=== PATIENT | male | born 1970 | race Two or more races ===

== ENCOUNTER 2018-03-08 13:14 | Inpatient (IN) | payer OTHER ==
[2018-03-08 14:17] VITALS: BMI 21.9
--- NOTE | 2018-03-08 15:06 | HP ---
COWS - Scale Resting Pulse: 0= [place] 80 or Below Sweatin= No chills or Flushing Restless Observation: 0= Sits Still Pupil Size: 0= Normal to Room Light Bone or Joint Aches: 2= Severe Diffuse Aches Runny Nose/ Eye Tearin= Runny Nose/Eyes GI Upset > 30mins: 3= Vomiting/Diarrhea Tremor Observation: 0= None Yawning Observation: 0= None Anxiety or Irritability: 1=Feels Anxious/Irritable Goose Flesh Skin: 0=Smooth Skin COWS Score: 8 CIWA Score - CIWA Score Nausea/Vomitin-No Nausea/No Vomiting Muscle Tremors: None Anxiety: 3 Agitation: 0-Normal Activity Paroxysmal Sweats: No Perspiration Orientation: 0-Oriented Tacttile Disturbances: 0-None Auditory Disturbances: 0-None Visual Disturbances: 2-Mild Sensitivity Headache: 0-None Present CIWA-Ar Total Score: 5 Admission ROS S - HPI Allergies/Adverse Reactions: Allergies Allergy/AdvReac Type Severity Reaction Status Date / Time No Known Allergies Allergy Verified 10/18/14 16:23 History of Present Illness: patient here requesting detox for etoh and heroin use . Also reports poor appetite, wt loss w/ substance use . etoh : 4-5 pints/ day x 5 years , + tremors if not drinking , reports drinking from early mornings , denies blackouts, seizures, falls , latest use this morning . grace 0.082 utox + sara, + mop, + oxy , + mtd cocaine : 50 $/day ivdu in [facility] claims 100 mg /day heroin use : 10 bags/day ivdu [place] , needles from pharmacy denies sharing , + abscess 3 years ago , OD x 5 , most recently 1 yr ago , latest use last night , current symptoms as above . pmhx /pshx : asthma since childhood (nh, ni ) psych :anxiety , depression meds ; stopped taking psych meds 5 mo ago allergies : aspirin ( no rash , feels anxious ) tobacco use ; 1/2 ppd , requesting nrt w/ patch Exam Limitations: No Limitations - Ebola screening Have you traveled outside of the country in the last 21 days: No Have you had contact with anyone from an Ebola affected area: No Have you been sick,other than usual withdrawal symptoms: No Do you have a fever: No - Review of Systems Constitutional: Loss of Appetite EENT: reports: Blurred Vision, Other (myopia, has glasses) Respiratory: reports: No Symptoms reported Cardiac: reports: No Symptoms Reported GI: reports: Diarrhea, Poor Appetite : reports: No Symptoms Reported Musculoskeletal: reports: Back Pain Integumentary: reports: See HPI Neuro: reports: No Symptoms reported Endocrine: reports: No Symptoms Reported Psychiatric: reports: Orientated x3, Anxious Patient History - Patient Medical History Hx Anemia: No Hx Asthma: Yes Hx Chronic Obstructive Pulmonary Disease (COPD): No Hx Cancer: No Hx Cardiac Disorders: No Hx Congestive Heart Failure: No Hx Hypertension: No Hx Hypercholesterolemia: No Hx Pacemaker: No HX Cerebrovascular Accident: No Hx Seizures: No Hx Dementia: No Hx Diabetes: No Hx Gastrointestinal Disorders: No Hx Liver Disease: No Hx Genitourinary Disorders: No Hx Sexually Transmitted Disorders: No Hx Renal Disease (ESRD): No Hx Thyroid Disease: No Hx Human Immunodeficiency Virus (HIV): No (taking the test ) Hx Hepatitis C: No (possible , taking the test ) Hx Depression: Yes Hx Suicide Attempt: No Hx Schizophrenia: No - Patient Surgical History Past Surgical History: No Hx Neurologic Surgery: No Hx Cataract Extraction: No Hx Cardiac Surgery: No Hx Lung Surgery: No Hx Breast Surgery: No Hx Breast Biopsy: No Hx Abdominal Surgery: No Hx Appendectomy: No Hx Cholecystectomy: No Hx Genitourinary Surgery: No Hx Section: No Hx Orthopedic Surgery: No Anesthesia Reaction: No - PPD History Date: 10/20/14 - Smoking Cessation Smoking history: Current every day smoker Have you smoked in the past 12 months: Yes Aproximately how many cigarettes per day: 6 Hx Chewing Tobacco Use: No Initiated information on smoking cessation: No Family Disease History - Family Disease History Family Disease History: Diabetes: Grandparent, Heart Disease: Grandparent, CA: Mother (pancreatic , liver CA ), Other: Father (HIV ) Admission Physical Exam BHS - Vital Signs Vital Signs: Vital Signs - 24 hr 03/08/18 14:15 Temperature 97.8 F Pulse Rate 78 Respiratory 18 Rate Blood Pressure 114/75 - Physical General Appearance: Yes: No Apparent Distress, Nourished, Appropriately Dressed , Mild Distress HEENTM: Yes: Within Normal Limits, EOMI, Hearing grossly Normal, Normal ENT Inspection, Normocephalic, Normal Voice, SUNDEEP, Pharynx Normal, Other (many missing teeth) Respiratory: Yes: Chest Non-Tender, Lungs Clear, Normal Breath Sounds, No Respiratory Distress, No Accessory Muscle Use, Wheezing Neck: Yes: Within Normal Limits, No masses,lesions,Nodules, Trachea in good position Breast: Yes: Breast Exam Deferred Cardiology: Yes: Within Normal Limits, Regular Rhythm, Regular Rate Abdominal: Yes: Within Normal Limits, Normal Bowel Sounds, Non Tender, Flat, Soft Genitourinary: Yes: Within Normal Limits Back: Yes: Within Normal Limits, Normal Inspection Musculoskeletal: Yes: Within Normal Limits, full range of Motion, Gait Steady, Pelvis Stable Extremities: Yes: Normal Capillary Refill, Normal Inspection, Normal Range of Motion, Non-Tender, Tremors Neurological: Yes: Within Normal Limits, Fully Oriented, Alert, Motor Strength 5 /5, Normal Mood/Affect, Normal Response Integumentary: Yes: Within Normal Limits, Normal Color, Dry, Warm Lymphatic: Yes: Within Normal Limits - Diagnostic (1) Alcohol dependence Current Visit: No Status: Acute Qualifiers: Substance use status: uncomplicated Qualified Code(s): F10.20 - Alcohol dependence, uncomplicated BHS Breath Alcohol Content Breath Alcohol Content: 0.082 Urine Drug Screen - Results Drug Screen Negative: No Urine Drug Screen Results: SARA-Cocaine, OPI-Opiates, MTD-Methadone, OXY- Oxycodone
[2018-03-08] MEDS ORDERED: ACETAMINOPHEN 325 MG TABLET (FP) PO PRN (15:13)
[2018-03-08] MEDS ORDERED: MAGNESIUM CITRATE 300 ML BOTTLE PO PRN (15:13)
[2018-03-08] MEDS ORDERED: chlordiazePOXIDE HCL 25 MG CAPSULE PO PRN (15:13)
[2018-03-08] MEDS ORDERED: LOPERAMIDE HCL 2 MG CAPSULE PO PRN (15:13)
[2018-03-08] MEDS ORDERED: IBUPROFEN 400 MG TABLET (FP) PO PRN (15:13)
[2018-03-08] MEDS ORDERED: guaiFENesin/D-METHORPHAN HB 10 ML UNIT-DOSE CUPS PO PRN (15:13)
[2018-03-08] MEDS ORDERED: P-EPHED 60MG/TRIPROLIDI 2.5MG TABLET PO PRN (15:13)
[2018-03-08] MEDS ORDERED: MAG HYDROX/AL HYDROX/SIMETH 30 ML UNIT-DOSE CUP PO PRN (15:13)
[2018-03-08] MEDS ORDERED: MENTHOL/PHENOL 1 EACH UD MM PRN (15:13)
[2018-03-08] MEDS ORDERED: MAGNESIUM HYDROX 2400MG/30ML ORAL SUSPENSION 30 ML CUP PO PRN (15:13)
[2018-03-08] MEDS ORDERED: ALBUTEROL SO4 8 GM HFA INHALER IH PRN (15:14)
[2018-03-08] MEDS ORDERED: hydrOXYzine PAMOATE 50 MG CAPSULE (FP) PO PRN (20:32)
[2018-03-08] MEDS ORDERED: MELATONIN 5 MG TABLETS PO PRN (22:00)
[2018-03-08] MEDS: chlordiazePOXIDE HCL 25 MG CAPSULE PO SCH (22:21)
[2018-03-08] MEDS: THIAMINE HCL 100 MG TABLET (FP) PO SCH (22:21)
[2018-03-09 02:05] LABS: URINE APPEARANCE CLEAR; URINE BILIRUBIN NEGATIVE (<2.0 mg/dL); URINE COLOR YELLOW; URINE GLUCOSE (UA) NEGATIVE (NEGATIVE); URINE KETONE NEGATIVE (NEGATIVE); URINE LEUK ESTERASE NEGATIVE (NEGATIVE); URINE NITRITE NEGATIVE (NEGATIVE); URINE PROTEIN NEGATIVE (NEGATIVE)
[2018-03-09] MEDS: chlordiazePOXIDE HCL 25 MG CAPSULE PO SCH ×4 (05:53→22:35)
[2018-03-09] MEDS ORDERED: METHADONE HCL 10 MG TABLET PO SCH ×2 (06:00→08:30)
[2018-03-09] MEDS ORDERED: METHADONE HCL 10 MG TABLET ONE (09:01)
[2018-03-09] MEDS ORDERED: METHADONE HCL 40 MG DISPERSABLE TABLET ONE (09:01)
[2018-03-09] MEDS: METHADONE 80 MG, METHADONE 20 MG PO SCH (09:05)
[2018-03-09 09:59] LABS: HEMATOCRIT 42.5 % (35.4-49); HEMOGLOBIN 14.1 GM/dL (11.7-16.9); MCH 30.7 pg (25.7-33.7); MCHC 33.2 g/dl (32.0-35.9); MEAN CELL VOLUME 92.5 fl (80-96); MEAN PLT VOLUME 9.2 fl (7.5-11.1); PLATELET COUNT 205 K/MM3 (134-434); RDW 14.2 % (11.9-15.9); WHITE BLOOD COUNT 5.4 K/mm3 (4.0-10.0)
[2018-03-09 10:39] LABS: ALBUMIN 2.8 g/dl (3.4-5.0); ALK PHOS 99 U/L (45-117); ANION GAP 8 MMOL/L (8-16); BILIRUBIN,TOTAL 0.2 mg/dL (0.2-1); BLOOD UREA NITROGEN 11 mg/dL (7-18); CALCIUM 9.1 mg/dL (8.5-10.1); CHLORIDE 106 mmol/L (98-107); CO2 28 mmol/L (21-32); CREATININE 0.6 mg/dL (0.55-1.3); GLUCOSE,RANDOM 93 mg/dL (74-106); POTASSIUM 4.2 mmol/L (3.5-5.1); SGOT/AST 15 U/L (15-37); SGPT/ALT 18 U/L (13-61); SODIUM 142 mmol/L (136-145); TOT PROT 6.1 g/dl (6.4-8.2)
[2018-03-09] MEDS: PRENATAL VITAMINS W/ FOLIC ACID TABLET (FP) PO SCH (10:42)
[2018-03-09] MEDS: NICOTINE 7 MG/24 HOURS TOPICAL PATCH TD SCH (10:43)
--- NOTE | 2018-03-09 11:44 | EKG ---
Test Reason : Blood Pressure : / mmHG Vent. Rate : 059 BPM Atrial Rate : 059 BPM P-R Int : 134 ms QRS Dur : 100 ms QT Int : 412 ms P-R-T Axes : 071 031 045 degrees QTc Int : 407 ms SINUS BRADYCARDIA OTHERWISE NORMAL ECG NO PREVIOUS ECGS AVAILABLE Confirmed by TURNER ARIAS, KUMAR ([id number]) on 03/09/2018 11:44:30 AM Referred By: Confirmed By:KUMAR TOMPKINS MD
--- NOTE | 2018-03-09 12:52 | CONSULT ---
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 Substance Abuse History: Patient admits to a long-standing history of substance abuse.Consumes alcohol on a daily basis (2-4 pints) + cocaine + heroin.Smokes 1/ 2 pack of cigarettes daily. Medical History: Bronchial asthma. Psychiatric History: Patient denies history of psychiatric hospitalizations.Admits to being prescribed sertraline in the past. Reportedly diagnosed with Bipolar disorder.No psychiatric OPD care for about a year (self- report).Patient denies history of suicide attempts. Physical/Sexual Abuse/Trauma History: Patient denies. Additional Comment: Urine Drug Screen Results: MERISSA-Cocaine, OPI-Opiates, MTD- Methadone, OXY-Oxycodone.Noted. Mental Status Exam - Mental Status Exam Alert and Oriented to: Time, Place, Person Cognitive Function: Good Patient Appearance: Disheveled Mood: Nervous, Withdrawn Affect: Mood Congruent Patient Behavior: Fatigued, Appropriate, Cooperative Speech Pattern: Clear Voice Loudness: Normal Thought Process: Intact, Goal Oriented Thought Disorder: Not Present Hallucinations: Denies Suicidal Ideation: Denies Homicidal Ideation: Denies Insight/Judgement: Poor Sleep: Poorly, Difficulty falling asleep Appetite: Good Muscle strength/Tone: Normal Gait/Station: Other (not observed ; in bed for the entire interview) Psychiatric Findings - Problem List ([place] 1, 2,3) (1) Opioid dependence on agonist therapy Current Visit: Yes Status: Acute (2) Alcohol dependence Current Visit: Yes Status: Acute Qualifiers: Substance use status: uncomplicated Qualified Code(s): F10.20 - Alcohol dependence, uncomplicated (3) Cocaine dependence Current Visit: Yes Status: Acute (4) Nicotine dependence Current Visit: Yes Status: Acute (5) Substance induced mood disorder Current Visit: Yes Status: Acute (6) Insomnia Current Visit: Yes Status: Acute - Initial Treatment Plan Initial Treatment Plan: psychoeducation.Sleep hygiene.Detoxification in progress.Ambien 10 mg po hs prn.Patient is informed of risk of parasomnias.Agrees to this careplan.Observation.
--- NOTE | 2018-03-09 15:20 | PN ---
S CIWA - CIWA Score Nausea/Vomitin Muscle Tremors: 4-Moderate,w/Arms Extend Anxiety: 4-Mod. Anxious/Guarded Agitation: 4-Moderately Restless Paroxysmal Sweats: 3 Orientation: 0-Oriented Tacttile Disturbances: 0-None Auditory Disturbances: 0-None Visual Disturbances: 0-None Headache: 1-Very Mild CIWA-Ar Total Score: 19 BHS Progress Note (SOAP) Subjective: Tremor, back pain, nausea, diarrhea Objective: 03/09/18 15:16 Last Vital Signs Temp Pulse Resp BP Pulse Ox 97.6 F 76 18 107/71 03/09/18 09:40 03/09/18 09:40 03/09/18 09:40 03/09/18 09:40 Laboratory Tests 03/08/18 03/09/18 03/09/18 20:08 07:30 07:30 WBC 5.4 RBC 4.60 Hgb 14.1 Hct 42.5 MCV 92.5 MCH 30.7 MCHC 33.2 RDW 14.2 Plt Count 205 MPV 9.2 Sodium 142 Potassium 4.2 Chloride 106 Carbon Dioxide 28 Anion Gap 8 BUN 11 Creatinine 0.6 Creat Clearance w eGFR > 60 Random Glucose 93 Calcium 9.1 Total Bilirubin 0.2 AST 15 ALT 18 Alkaline Phosphatase 99 Total Protein 6.1 L Albumin 2.8 L Urine Color Yellow Urine Appearance Clear Urine pH 5.0 Ur Specific [place] 1.016 Urine Protein Negative Urine Glucose (UA) Negative Urine Ketones Negative Urine Blood Negative Urine Nitrite Negative Urine Bilirubin Negative Urine Urobilinogen 2.0 Ur Leukocyte Esterase Negative RPR Titer 03/09/18 07:30 WBC RBC Hgb Hct MCV MCH MCHC RDW Plt Count MPV Sodium Potassium Chloride Carbon Dioxide Anion Gap BUN Creatinine Creat Clearance w eGFR Random Glucose Calcium Total Bilirubin AST ALT Alkaline Phosphatase Total Protein Albumin Urine Color Urine Appearance Urine pH Ur Specific [place] Urine Protein Urine Glucose (UA) Urine Ketones Urine Blood Urine Nitrite Urine Bilirubin Urine Urobilinogen Ur Leukocyte Esterase RPR Titer Nonreactive Labs reviewed Assessment: 03/09/18 15:19 Withdrawal symptoms Plan: Continue detox Encouraged PO water hydration
[2018-03-09] MEDS: THIAMINE HCL 100 MG TABLET (FP) PO SCH (22:35)
[2018-03-10] MEDS ORDERED: METHADONE HCL 40 MG DISPERSABLE TABLET ONE (04:18)
[2018-03-10] MEDS ORDERED: METHADONE HCL 10 MG TABLET ONE (04:18)
[2018-03-10] MEDS: METHADONE 80 MG, METHADONE 20 MG PO SCH (06:04)
[2018-03-10] MEDS: chlordiazePOXIDE HCL 25 MG CAPSULE PO SCH ×3 (06:04→17:30)
[2018-03-10] MEDS: NICOTINE 7 MG/24 HOURS TOPICAL PATCH TD SCH (10:23)
[2018-03-10] MEDS: PRENATAL VITAMINS W/ FOLIC ACID TABLET (FP) PO SCH (10:23)
--- NOTE | 2018-03-10 14:20 | PN ---
S CIWA - CIWA Score Nausea/Vomitin Muscle Tremors: 3 Anxiety: 3 Agitation: 2 Paroxysmal Sweats: 3 Orientation: 0-Oriented Tacttile Disturbances: 0-None Auditory Disturbances: 0-None Visual Disturbances: 0-None Headache: 1-Very Mild CIWA-Ar Total Score: 14 BHS Progress Note (SOAP) Subjective: Interrupted sleep, sweating, back pain Objective: 03/10/18 14:19 Last Vital Signs Temp Pulse Resp BP Pulse Ox 97.1 F L 78 18 129/82 03/10/18 09:22 03/10/18 09:22 03/10/18 09:22 03/10/18 09:22 Laboratory Tests 03/08/18 03/09/18 03/09/18 20:08 07:30 07:30 WBC 5.4 RBC 4.60 Hgb 14.1 Hct 42.5 MCV 92.5 MCH 30.7 MCHC 33.2 RDW 14.2 Plt Count 205 MPV 9.2 Sodium 142 Potassium 4.2 Chloride 106 Carbon Dioxide 28 Anion Gap 8 BUN 11 Creatinine 0.6 Creat Clearance w eGFR > 60 Random Glucose 93 Calcium 9.1 Total Bilirubin 0.2 AST 15 ALT 18 Alkaline Phosphatase 99 Total Protein 6.1 L Albumin 2.8 L Urine Color Yellow Urine Appearance Clear Urine pH 5.0 Ur Specific [place] 1.016 Urine Protein Negative Urine Glucose (UA) Negative Urine Ketones Negative Urine Blood Negative Urine Nitrite Negative Urine Bilirubin Negative Urine Urobilinogen 2.0 Ur Leukocyte Esterase Negative RPR Titer 03/09/18 07:30 WBC RBC Hgb Hct MCV MCH MCHC RDW Plt Count MPV Sodium Potassium Chloride Carbon Dioxide Anion Gap BUN Creatinine Creat Clearance w eGFR Random Glucose Calcium Total Bilirubin AST ALT Alkaline Phosphatase Total Protein Albumin Urine Color Urine Appearance Urine pH Ur Specific [place] Urine Protein Urine Glucose (UA) Urine Ketones Urine Blood Urine Nitrite Urine Bilirubin Urine Urobilinogen Ur Leukocyte Esterase RPR Titer Nonreactive Labs reviewed Assessment: 03/10/18 14:19 Withdrawal symptoms Plan: Continue detox
[2018-03-10] MEDS: THIAMINE HCL 100 MG TABLET (FP) PO SCH (22:37)
[2018-03-10] MEDS: chlordiazePOXIDE 5 MG CAPSULE PO SCH (22:37)
[2018-03-10] MEDS: ZOLPIDEM TARTRATE 5 MG TABLET PO PRN (22:39)
[2018-03-11] MEDS ORDERED: METHADONE HCL 10 MG TABLET ONE (04:48)
[2018-03-11] MEDS ORDERED: METHADONE HCL 40 MG DISPERSABLE TABLET ONE (04:49)
[2018-03-11] MEDS: METHADONE 80 MG, METHADONE 20 MG PO SCH (05:43)
[2018-03-11] MEDS: chlordiazePOXIDE 5 MG CAPSULE PO SCH ×3 (05:43→17:30)
[2018-03-11] MEDS: PRENATAL VITAMINS W/ FOLIC ACID TABLET (FP) PO SCH (10:45)
[2018-03-11] MEDS: NICOTINE 7 MG/24 HOURS TOPICAL PATCH TD SCH (10:45)
--- NOTE | 2018-03-11 14:45 | PN ---
BHS Progress Note (SOAP) Subjective: Interrupted sleep, sweating, back pain Objective: 03/11/18 14:42 Last Vital Signs Temp Pulse Resp BP Pulse Ox 97.7 F 82 18 104/70 03/11/18 13:48 03/11/18 13:48 03/11/18 13:48 03/11/18 13:48 Laboratory Tests 03/08/18 03/09/18 03/09/18 20:08 07:30 07:30 WBC 5.4 RBC 4.60 Hgb 14.1 Hct 42.5 MCV 92.5 MCH 30.7 MCHC 33.2 RDW 14.2 Plt Count 205 MPV 9.2 Sodium 142 Potassium 4.2 Chloride 106 Carbon Dioxide 28 Anion Gap 8 BUN 11 Creatinine 0.6 Creat Clearance w eGFR > 60 Random Glucose 93 Calcium 9.1 Total Bilirubin 0.2 AST 15 ALT 18 Alkaline Phosphatase 99 Total Protein 6.1 L Albumin 2.8 L Urine Color Yellow Urine Appearance Clear Urine pH 5.0 Ur Specific [place] 1.016 Urine Protein Negative Urine Glucose (UA) Negative Urine Ketones Negative Urine Blood Negative Urine Nitrite Negative Urine Bilirubin Negative Urine Urobilinogen 2.0 Ur Leukocyte Esterase Negative RPR Titer 03/09/18 07:30 WBC RBC Hgb Hct MCV MCH MCHC RDW Plt Count MPV Sodium Potassium Chloride Carbon Dioxide Anion Gap BUN Creatinine Creat Clearance w eGFR Random Glucose Calcium Total Bilirubin AST ALT Alkaline Phosphatase Total Protein Albumin Urine Color Urine Appearance Urine pH Ur Specific [place] Urine Protein Urine Glucose (UA) Urine Ketones Urine Blood Urine Nitrite Urine Bilirubin Urine Urobilinogen Ur Leukocyte Esterase RPR Titer Nonreactive Labs reviewed Assessment: 03/11/18 14:43 Withdrawal symptoms Plan: Continue detox Encouraged PO water intake
[2018-03-11] MEDS: THIAMINE HCL 100 MG TABLET (FP) PO SCH (22:21)
[2018-03-11] MEDS: chlordiazePOXIDE HCL 10 MG CAPSULE PO SCH (22:21)
[2018-03-11] MEDS: ZOLPIDEM TARTRATE 5 MG TABLET PO PRN (22:21)
[2018-03-12] MEDS ORDERED: METHADONE HCL 40 MG DISPERSABLE TABLET ONE (04:46)
[2018-03-12] MEDS ORDERED: METHADONE HCL 10 MG TABLET ONE (04:46)
[2018-03-12] MEDS: METHADONE 80 MG, METHADONE 20 MG PO SCH (05:52)
[2018-03-12] MEDS: chlordiazePOXIDE HCL 10 MG CAPSULE PO SCH (05:52)
[2018-03-12 06:28] VITALS: BP 108/70; PULSE 68; TEMP 97.5
[2018-03-12] MEDS: PRENATAL VITAMINS W/ FOLIC ACID TABLET (FP) PO SCH (09:31)
[2018-03-12] MEDS: NICOTINE 7 MG/24 HOURS TOPICAL PATCH TD SCH (11:33)
--- NOTE | 2018-03-12 12:24 | DS ---
[facility] Detox Discharge Summary Admission Date: 03/08/18 Discharge Date: 03/12/18 - History Present History: Alcohol Dependence, Opioid Dependence Pertinent Past History: Depression and asthma - Physical Exam Results Vital Signs: Vital Signs Temperature 97.5 F L 03/12/18 06:28 Pulse Rate 68 03/12/18 06:28 Respiratory Rate 16 03/12/18 06:28 Blood Pressure 108/70 03/12/18 06:28 O2 Sat by Pulse Oximetry (%) Pertinent Admission Physical Exam Findings: Withdrawal sx Laboratory Last Values WBC 5.4 K/mm3 (4.0-10.0) 03/09/18 07:30 RBC 4.60 M/mm3 (4.00-5.60) 03/09/18 07:30 Hgb 14.1 GM/dL (11.7-16.9) 03/09/18 07:30 Hct 42.5 % (35.4-49) 03/09/18 07:30 MCV 92.5 fl (80-96) 03/09/18 07:30 MCH 30.7 pg (25.7-33.7) 03/09/18 07:30 MCHC 33.2 g/dl (32.0-35.9) 03/09/18 07:30 RDW 14.2 % (11.9-15.9) 03/09/18 07:30 Plt Count 205 K/MM3 (134-434) 03/09/18 07:30 MPV 9.2 fl (7.5-11.1) 03/09/18 07:30 Sodium 142 mmol/L (136-145) 03/09/18 07:30 Potassium 4.2 mmol/L (3.5-5.1) 03/09/18 07:30 Chloride 106 mmol/L (98-107) 03/09/18 07:30 Carbon Dioxide 28 mmol/L (21-32) 03/09/18 07:30 Anion Gap 8 MMOL/L (8-16) 03/09/18 07:30 BUN 11 mg/dL (7-18) 03/09/18 07:30 Creatinine 0.6 mg/dL (0.55-1.3) 03/09/18 07:30 Creat Clearance w eGFR > 60 (>60) 03/09/18 07:30 Random Glucose 93 mg/dL (74-106) 03/09/18 07:30 Calcium 9.1 mg/dL (8.5-10.1) 03/09/18 07:30 Total Bilirubin 0.2 mg/dL (0.2-1) 03/09/18 07:30 AST 15 U/L (15-37) 03/09/18 07:30 ALT 18 U/L (13-61) 03/09/18 07:30 Alkaline Phosphatase 99 U/L (45-117) 03/09/18 07:30 Total Protein 6.1 g/dl (6.4-8.2) L 03/09/18 07:30 Albumin 2.8 g/dl (3.4-5.0) L 03/09/18 07:30 Urine Color Yellow 03/08/18 20:08 Urine Appearance Clear 03/08/18 20:08 Urine pH 5.0 (5.0-8.0) 03/08/18 20:08 Ur Specific [place] 1.016 (1.001-1.035) 03/08/18 20:08 Urine Protein Negative (NEGATIVE) 03/08/18 20:08 Urine Glucose (UA) Negative (NEGATIVE) 03/08/18 20:08 Urine Ketones Negative (NEGATIVE) 03/08/18 20:08 Urine Blood Negative (NEGATIVE) 03/08/18 20:08 Urine Nitrite Negative (NEGATIVE) 03/08/18 20:08 Urine Bilirubin Negative (<2.0 mg/dL) 03/08/18 20:08 Urine Urobilinogen 2.0 mg/dL (0.2-1.0) 03/08/18 20:08 Ur Leukocyte Esterase Negative (NEGATIVE) 03/08/18 20:08 RPR Titer Nonreactive (NONREACTIVE) 03/09/18 07:30 Labs noted - Treatment Hospital Course: Detox Protocol Followed, Detoxed Safely, Responded well, Discharged Condition Good - Medication Discharge Medications: Ambulatory Orders Albuterol Sulfate Inhaler - [Ventolin HFA Inhaler -] 1 - 2 inh PO QID 10/18/14 Sertraline HCl [Zoloft -] 25 mg PO DAILY 10/18/14 - Diagnosis (1) Alcohol dependence with withdrawal, uncomplicated Status: Acute (2) Opioid dependence on agonist therapy Status: Acute (3) Substance induced mood disorder Status: Acute (4) Asthma Status: Chronic Qualifiers: Asthma severity: mild Asthma persistence: intermittent (5) Cocaine dependence Status: Chronic Qualifiers: Substance use status: uncomplicated Qualified Code(s): F14.20 - Cocaine dependence, uncomplicated (6) Depression Status: Chronic (7) Nicotine dependence Status: Acute Qualifiers: Nicotine product type: cigarettes Substance use status: uncomplicated Qualified Code(s): F17.210 - Nicotine dependence, cigarettes, uncomplicated - AMA Did Patient Leave Against Medical Advice: No
== END 2018-03-12 10:40 | disposition home or self-care (01) | DRG 773 ==
LOC: YASAS 13:14 → Y3N 17:45
PROC: HZ2ZZZZ Detoxification Services for Substance Abuse Treatment (ICD-10-PCS; principal; 2018-03-08)
DX: F10.230 Alcohol dependence with withdrawal, uncomplicated (principal); F11.20 Opioid dependence, uncomplicated; F14.20 Cocaine dependence, uncomplicated; F17.210 Nicotine dependence, cigarettes, uncomplicated; F19.24 Other psychoactive substance dependence with psychoactive substance-induced mood disorder; F32.9 Major depressive disorder, single episode, unspecified; J45.20 Mild intermittent asthma, uncomplicated; G47.00 Insomnia, unspecified
CPT/HCPCS: 36415; 80053; 81003; 85027; 86593; 93005; 93010

== ENCOUNTER 2019-01-24 12:07 | Inpatient (IN) | payer OTHER ==
[2019-01-24 13:10] VITALS: BMI 21.3
--- NOTE | 2019-01-24 15:12 | HP ---
CIWA Score Nausea/Vomitin-Mild Nausea/No Vomiting Muscle Tremors: 4-Moderate,w/Arms Extend Anxiety: 2 Agitation: 3 Paroxysmal Sweats: 3 Orientation: 2-Disoriented Date<2 days Tacttile Disturbances: 0-None Auditory Disturbances: 0-None Visual Disturbances: 0-None Headache: 1-Very Mild (appropriate for alcohol detox) CIWA-Ar Total Score: 16 - Admission Criteria OASAS Guidelines: Admission for Medically Managed Detox: Requires at least one of the followin. CIWA greater than 12 2. Seizures within the past 24 hours 3. Delirium tremens within the past 24 hours 4. Hallucinations within the past 24 hours 5. Acute intervention needed for co occurring medical disorder 6. Acute intervention needed for co occurring psychiatric disorder 7. Severe withdrawal that cannot be handled at a lower level of care (continued vomiting, continued diarrhea, abnormal vital signs) requiring intravenous medication and/or fluids 8. Admission ROS [facility] - [facility] Chief Complaint: " I am shaking a lot, I want to do different, I don't want to drink alcohol anymore" Allergies/Adverse Reactions: Allergies Allergy/AdvReac Type Severity Reaction Status Date / Time No Known Allergies Allergy Verified 01/24/19 13:01 History of Present Illness: Patient is a 48 year old male with alcohol dependence. He was last here in 02/2018. After he left, he almost immediately relapsed. He is also cocaine use disorder. Patient drinks 4 - 5 1/2 pints of vodka per day. He last drank yesterday. He is also using cocaine 6 bags per day. He also uses heroin 1 bundle every 2 days. He is currently on a methadone program [facility]. Patient also smokes 6-7 ciggarettes per day. for 30 years. PMHx: HCV but treated, Asthma albuterol as needed. Psych Hx: Anxiety, Depression, Bipolar D/O on no meds Patient has no pending legal issues. Patient has poor support systems in place. Exam Limitations: No Limitations - Ebola screening Have you traveled outside of the country in the last 21 days: No Have you had contact with anyone from an Ebola affected area: No Have you been sick,other than usual withdrawal symptoms: No Do you have a fever: No - Review of Systems Constitutional: Chills EENT: reports: No Symptoms Reported Respiratory: reports: No Symptoms reported Cardiac: reports: No Symptoms Reported GI: reports: Nausea : reports: No Symptoms Reported Musculoskeletal: reports: Back Pain, Muscle Pain Integumentary: reports: No Symptoms Reported Neuro: reports: No Symptoms reported Endocrine: reports: No Symptoms Reported Hematology: reports: No Symptoms Reported Psychiatric: reports: No Sypmtoms Reported, Orientated x3 Patient History - Patient Medical History Hx Anemia: No Hx Asthma: Yes (albuterol but non-compliant) Hx Chronic Obstructive Pulmonary Disease (COPD): No Hx Cancer: No Hx Cardiac Disorders: No Hx Congestive Heart Failure: No Hx Hypertension: No Hx Hypercholesterolemia: No Hx Pacemaker: No HX Cerebrovascular Accident: No Hx Seizures: No Hx Dementia: No Hx Diabetes: No Hx Gastrointestinal Disorders: No Hx Liver Disease: No Hx Genitourinary Disorders: No Hx Sexually Transmitted Disorders: No Hx Renal Disease (ESRD): No Hx Thyroid Disease: No Hx Human Immunodeficiency Virus (HIV): No (taking the test ) Hx Hepatitis C: No (possible , taking the test ) Hx Depression: Yes (not on medications) Hx Suicide Attempt: No Hx Schizophrenia: No - Patient Surgical History Past Surgical History: No Hx Neurologic Surgery: No Hx Cataract Extraction: No Hx Cardiac Surgery: No Hx Lung Surgery: No Hx Breast Surgery: No Hx Breast Biopsy: No Hx Abdominal Surgery: No Hx Appendectomy: No Hx Cholecystectomy: No Hx Genitourinary Surgery: No Hx Section: No Hx Orthopedic Surgery: No Anesthesia Reaction: No - PPD History Previous Implant?: Yes Documented Results: Positive w/o proof Implanted On Prior [facility] Admission?: Yes Date: 03/10/18 Results: 00mm PPD to be Administered?: No - Smoking Cessation Smoking history: Current every day smoker Have you smoked in the past 12 months: Yes Aproximately how many cigarettes per day: 6 Hx Chewing Tobacco Use: No Initiated information on smoking cessation: Yes 'Breaking Loose' booklet given: 01/24/19 - Substances abused Alcohol Substance route: Oral Frequency: Daily Amount used: 5 pints of vodka per day Age of first use: 23 Date of last use: 01/24/19 Cocaine Substance route: Smoking Frequency: Daily Amount used: $100 Age of first use: 23 Date of last use: 01/24/19 Family Disease History - Family Disease History Family Disease History: Diabetes: Grandparent, Heart Disease: Grandparent, CA: Mother (pancreatic , liver CA ), Other: Father (HIV ) Admission Physical Exam [facility] - Vital Signs Vital Signs: Vital Signs - 24 hr 01/24/19 13:00 Temperature 97.2 F L Pulse Rate 60 Respiratory 17 Rate Blood Pressure 131/80 - Physical General Appearance: Yes: Within Normal Limits, Moderate Distress HEENTM: Yes: EOMI, Hearing grossly Normal, Normal ENT Inspection, Normocephalic , SUNDEEP, Pharynx Normal, Tm's normal Respiratory: Yes: Chest Non-Tender, Lungs Clear, Normal Breath Sounds, No Respiratory Distress, No Accessory Muscle Use Neck: Yes: No masses,lesions,Nodules, Supple Breast: Yes: Within Normal Limits Cardiology: Yes: Regular Rhythm, Regular Rate, S1, S2 Abdominal: Yes: Normal Bowel Sounds, Non Tender, Soft Back: Yes: Normal Inspection Musculoskeletal: Yes: full range of Motion, Gait Steady Extremities: Yes: Normal Capillary Refill, Normal Inspection, Non-Tender Neurological: Yes: flight reservations manager II-XII NML intact, Fully Oriented, Alert, Motor Strength 5/5 Integumentary: Yes: Dry, Warm Lymphatic: Yes: Within Normal Limits - Diagnostic (1) Alcohol dependence with withdrawal, uncomplicated Current Visit: Yes Status: Acute (2) Nicotine dependence Current Visit: Yes Status: Acute Qualifiers: Nicotine product type: cigarettes Substance use status: uncomplicated Qualified Code(s): F17.210 - Nicotine dependence, cigarettes, uncomplicated (3) Opioid dependence on agonist therapy Current Visit: Yes Status: Acute (4) Asthma Current Visit: No Status: Chronic Qualifiers: Asthma severity: mild Asthma persistence: intermittent (5) Cocaine dependence Current Visit: Yes Status: Chronic Qualifiers: Substance use status: uncomplicated Qualified Code(s): F14.20 - Cocaine dependence, uncomplicated Cleared for Admission [facility] - Detox or Rehab [facility] Level of Care: Medically Managed Detox Regimen/Protocol: Librium Claeared for Rehab Admission: No Breathalyzer - Breathalyzer Breathalyzer: 0 (last drank over one day ago) Vital Signs - Vital Signs Vital signs refused: No Temperature: 97.2 F Temperature source: Oral Pulse Rate: 60 Respiratory Rate: 17 Blood Pressure: 131/80 BP Location: Left Arm Blood Pressure position: Sitting - Height Height: 5 ft 6 in - Weight Weight: 132 lb Weight measurement method: Standing scale - BMI Body Mass Index (BMI): 21.3 - Bowel Function Bowel Movement: No Urine Drug Screen - Control Is test valid?: Yes - Results Drug screen NEGATIVE: Yes Urine drug screen results: MERISSA-Cocaine, MOP-Opiates, MTD-Methadone Inpatient Rehab Admission - Rehab Decision to Admit Inpatient rehab admission?: No
[2019-01-24] MEDS ORDERED: MAGNESIUM HYDROX 2400MG/30ML ORAL SUSPENSION 30 ML CUP PO PRN (15:19)
[2019-01-24] MEDS ORDERED: IBUPROFEN 400 MG TABLET (FP) PO PRN (15:19)
[2019-01-24] MEDS ORDERED: chlordiazePOXIDE HCL 25 MG CAPSULE PO PRN (15:19)
[2019-01-24] MEDS ORDERED: MAG HYDROX/AL HYDROX/SIMETH 30 ML UNIT-DOSE CUP PO PRN (15:19)
[2019-01-24] MEDS ORDERED: ACETAMINOPHEN 325 MG TABLET (FP) PO PRN ×2 (15:19)
[2019-01-24] MEDS ORDERED: MAGNESIUM CITRATE 300 ML BOTTLE PO PRN (15:19)
[2019-01-24] MEDS ORDERED: MENTHOL/PHENOL 1 EACH UD MM PRN (15:19)
[2019-01-24] MEDS ORDERED: BISMUTH SUBSALICYLATE 524 MG/30 ML UD PO PRN (15:19)
[2019-01-24] MEDS ORDERED: hydrOXYzine PAMOATE 25 MG CAPSULE (FP) PO PRN (15:19)
[2019-01-24] MEDS: NICOTINE 7 MG/24 HOURS TOPICAL PATCH TD SCH (16:20)
[2019-01-24] MEDS: ALBUTEROL SO4 8 GM HFA INHALER IH SCH ×2 (17:36→22:35)
[2019-01-24] MEDS: chlordiazePOXIDE HCL 25 MG CAPSULE PO SCH (22:33)
[2019-01-24] MEDS: THIAMINE HCL 100 MG TABLET (FP) PO SCH (22:33)
[2019-01-25] MEDS: chlordiazePOXIDE HCL 25 MG CAPSULE PO SCH ×4 (06:06→22:44)
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
[2019-01-25 10:09] LABS: BILIRUBIN,TOTAL 0.3 mg/dL (0.2-1); BLOOD UREA NITROGEN 18.1 mg/dL (7-18); CALCIUM 9.1 mg/dL (8.5-10.1); CREATININE 0.8 mg/dL (0.55-1.3); POTASSIUM 4.2 mmol/L (3.5-5.1); TOT PROT 6.4 g/dl (6.4-8.2)
[2019-01-25 10:24] LABS: HEMATOCRIT 38.3 % (35.4-49); HEMOGLOBIN 12.9 GM/dL (11.7-16.9); MCH 30.2 pg (25.7-33.7); MCHC 33.7 g/dl (32.0-35.9); MEAN CELL VOLUME 89.7 fl (80-96); PLATELET COUNT 225 K/MM3 (134-434); RBC 4.27 M/mm3 (4.00-5.60); RDW 13.4 % (11.9-15.9); WHITE BLOOD COUNT 6.7 K/mm3 (4.0-10.0)
[2019-01-25] MEDS: NICOTINE 7 MG/24 HOURS TOPICAL PATCH TD SCH (10:42)
[2019-01-25] MEDS: ALBUTEROL SO4 8 GM HFA INHALER IH SCH ×4 (10:42→22:45)
[2019-01-25] MEDS: PRENATAL VITAMINS W/ FOLIC ACID TABLET (FP) PO SCH (10:42)
[2019-01-25] MEDS ORDERED: METHADONE HCL 10 MG TABLET PO SCH (11:45)
[2019-01-25] MEDS ORDERED: METHADONE HCL 10 MG TABLET ONE (12:05)
[2019-01-25] MEDS ORDERED: METHADONE HCL 40 MG DISPERSABLE TABLET ONE (12:05)
[2019-01-25] MEDS: METHADONE 80 MG, METHADONE 30 MG PO SCH (12:26)
--- NOTE | 2019-01-25 15:35 | PN ---
S CIWA - CIWA Score Nausea/Vomitin-Mild Nausea/No Vomiting Muscle Tremors: 3 Anxiety: 3 Agitation: 1-Slight > Activity Paroxysmal Sweats: No Perspiration Orientation: 0-Oriented Tacttile Disturbances: 0-None Auditory Disturbances: 2-Mild Harshness/Frighten Visual Disturbances: 2-Mild Sensitivity Headache: 2-Mild CIWA-Ar Total Score: 14 BHS Progress Note (SOAP) Subjective: Tremors, Anxious, Fatigue, H/A. Objective: PATIENT A & O X 3, OBSERVED AMBULATING ON UNIT UNASSISTED. IN NO ACUTE DISTRESS. 01/25/19 15:33 Vital Signs Temperature 97.9 F 01/25/19 13:25 Pulse Rate 61 01/25/19 13:25 Respiratory Rate 18 01/25/19 13:25 Blood Pressure 108/63 01/25/19 13:25 O2 Sat by Pulse Oximetry (%) Laboratory Tests 01/25/19 01/25/19 01/25/19 07:00 07:00 07:00 WBC 6.7 RBC 4.27 Hgb 12.9 Hct 38.3 MCV 89.7 MCH 30.2 MCHC 33.7 RDW 13.4 Plt Count 225 MPV 9.0 Sodium 142 Potassium 4.2 Chloride 107 Carbon Dioxide 31 Anion Gap 5 L BUN 18.1 H Creatinine 0.8 Est GFR (CKD-EPI)AfAm 120.72 Est GFR (CKD-EPI)NonAf 104.16 Random Glucose 112 H Calcium 9.1 Total Bilirubin 0.3 AST 18 ALT 29 Alkaline Phosphatase 123 H Total Protein 6.4 Albumin 3.0 L RPR Titer Nonreactive HIV 1&2 Antibody Screen HIV P24 Antigen 01/25/19 07:00 WBC RBC Hgb Hct MCV MCH MCHC RDW Plt Count MPV Sodium Potassium Chloride Carbon Dioxide Anion Gap BUN Creatinine Est GFR (CKD-EPI)AfAm Est GFR (CKD-EPI)NonAf Random Glucose Calcium Total Bilirubin AST ALT Alkaline Phosphatase Total Protein Albumin RPR Titer HIV 1&2 Antibody Screen Cancelled HIV P24 Antigen Cancelled LABS NOTED. RESULTS OF DETOX ADMISSION HIV AB TEST PENDING. 01/25/19 15:34 Assessment: 01/25/19 15:33 WITHDRAWAL SYMPTOMS. Plan: CONTINUE DETOX.
[2019-01-25] MEDS: THIAMINE HCL 100 MG TABLET (FP) PO SCH (22:44)
[2019-01-26] MEDS ORDERED: METHADONE HCL 40 MG DISPERSABLE TABLET ONE (04:14)
[2019-01-26] MEDS ORDERED: METHADONE HCL 10 MG TABLET ONE (04:14)
[2019-01-26] MEDS: chlordiazePOXIDE HCL 25 MG CAPSULE PO SCH ×4 (06:11→22:29)
[2019-01-26] MEDS: METHADONE 80 MG, METHADONE 30 MG PO SCH (06:11)
[2019-01-26] MEDS: NICOTINE 7 MG/24 HOURS TOPICAL PATCH TD SCH (10:41)
[2019-01-26] MEDS: PRENATAL VITAMINS W/ FOLIC ACID TABLET (FP) PO SCH (10:42)
[2019-01-26] MEDS: ALBUTEROL SO4 8 GM HFA INHALER IH SCH ×4 (10:42→22:30)
--- NOTE | 2019-01-26 16:09 | PN ---
S CIWA - CIWA Score Nausea/Vomitin-No Nausea/No Vomiting Muscle Tremors: 3 Anxiety: 2 Agitation: 1-Slight > Activity Paroxysmal Sweats: No Perspiration Orientation: 0-Oriented Tacttile Disturbances: 1-Very Mild Itch/Numbness Auditory Disturbances: 0-None Visual Disturbances: 2-Mild Sensitivity Headache: 0-None Present CIWA-Ar Total Score: 9 BHS Progress Note (SOAP) Subjective: Anxious, Tremors, Body Aches, Fatigue. Patient reports that Withdrawal / Detox symptoms are slowly beginning to subside. Objective: PATIENT A & O X 3, OBSERVED AMBULATING ON UNIT UNASSISTED. IN NO ACUTE DISTRESS. 01/26/19 16:10 Assessment: 01/26/19 16:11 WITHDRAWAL SYMPTOMS. Plan: CONTINUE DETOX. INCREASE DAILY PO WATER INTAKE. PRN ROBAXIN PO FOR BODY ACHES / MUSCLE SPASMS.
[2019-01-26] MEDS: THIAMINE HCL 100 MG TABLET (FP) PO SCH (22:29)
[2019-01-27] MEDS ORDERED: chlordiazePOXIDE HCL 10 MG CAPSULE PO PRN
[2019-01-27] MEDS ORDERED: METHADONE HCL 40 MG DISPERSABLE TABLET ONE (05:04)
[2019-01-27] MEDS ORDERED: METHADONE HCL 10 MG TABLET ONE (05:04)
[2019-01-27] MEDS: METHADONE 80 MG, METHADONE 30 MG PO SCH (05:43)
[2019-01-27] MEDS: chlordiazePOXIDE HCL 10 MG CAPSULE PO SCH ×4 (05:43→22:21)
[2019-01-27] MEDS: METHOCARBAMOL 500 MG TABLET PO PRN (05:47)
--- NOTE | 2019-01-27 10:29 | PN ---
S CIWA - CIWA Score Nausea/Vomitin-Mild Nausea/No Vomiting Muscle Tremors: 2 Anxiety: 2 Agitation: 2 Paroxysmal Sweats: No Perspiration Orientation: 0-Oriented Tacttile Disturbances: 0-None Auditory Disturbances: 0-None Visual Disturbances: 0-None Headache: 1-Very Mild CIWA-Ar Total Score: 8 BHS Progress Note (SOAP) Subjective: Patient is still experiencing withdrawals. Only slightly better than yesterday. Did request muscle relaxants and feels less muscle aches. Objective: 01/27/19 10:28 Vitals: BP: 92/64 P:78 R:18 T:97.5F Laboratory 01/25/19 01/25/19 01/25/19 07:00 07:00 07:00 WBC 6.7 K/mm3 K/mm3 (4.0-10.0) RBC 4.27 M/mm3 M/mm3 (4.00-5.60) Hgb 12.9 GM/dL GM/dL (11.7-16.9) Hct 38.3 % % (35.4-49) MCV 89.7 fl fl (80-96) MCH 30.2 pg pg (25.7-33.7) MCHC 33.7 g/dl g/dl (32.0-35.9) RDW 13.4 % % (11.9-15.9) Plt Count 225 K/MM3 K/MM3 (134-434) MPV 9.0 fl fl (7.5-11.1) Sodium 142 mmol/L mmol/L (136-145) Potassium 4.2 mmol/L mmol/L (3.5-5.1) Chloride 107 mmol/L mmol/L (98-107) Carbon Dioxide 31 mmol/L mmol/L (21-32) Anion Gap 5 MMOL/L L MMOL/L (8-16) BUN 18.1 mg/dL H mg/dL (7-18) Creatinine 0.8 mg/dL mg/dL (0.55-1.3) Est GFR (CKD-EPI)AfAm 120.72 Est GFR (CKD-EPI)NonAf 104.16 Random Glucose 112 mg/dL H mg/dL (74-106) Calcium 9.1 mg/dL mg/dL (8.5-10.1) Total Bilirubin 0.3 mg/dL mg/dL (0.2-1) AST 18 U/L U/L (15-37) ALT 29 U/L U/L (13-61) Alkaline Phosphatase 123 U/L H U/L (45-117) Total Protein 6.4 g/dl g/dl (6.4-8.2) Albumin 3.0 g/dl L g/dl (3.4-5.0) RPR Titer Nonreactive (NONREACTIVE) HIV 1&2 Ag/Ab, 4th Gen HIV 1&2 Antibody Screen HIV P24 Antigen 01/25/19 01/25/19 07:00 10:00 WBC RBC Hgb Hct MCV MCH MCHC RDW Plt Count MPV Sodium Potassium Chloride Carbon Dioxide Anion Gap BUN Creatinine Est GFR (CKD-EPI)AfAm Est GFR (CKD-EPI)NonAf Random Glucose Calcium Total Bilirubin AST ALT Alkaline Phosphatase Total Protein Albumin RPR Titer HIV 1&2 Ag/Ab, 4th Gen Non reactive (Non Reactive) HIV 1&2 Antibody Screen Cancelled HIV P24 Antigen Cancelled Assessment: 01/27/19 10:30 1. Alcohol Dependence Plan: Continue alcohol detox protocol Follow up with counselor for discharge planning.
[2019-01-27] MEDS: NICOTINE 7 MG/24 HOURS TOPICAL PATCH TD SCH (11:01)
[2019-01-27] MEDS: PRENATAL VITAMINS W/ FOLIC ACID TABLET (FP) PO SCH (11:01)
[2019-01-27] MEDS: THIAMINE HCL 100 MG TABLET (FP) PO SCH (22:21)
[2019-01-27] MEDS: MELATONIN 5 MG TABLETS PO PRN (22:21)
[2019-01-27] MEDS: ALBUTEROL SO4 8 GM HFA INHALER IH SCH (22:22)
[2019-01-28] MEDS ORDERED: METHADONE HCL 40 MG DISPERSABLE TABLET ONE (05:20)
[2019-01-28] MEDS ORDERED: METHADONE HCL 10 MG TABLET ONE (05:20)
[2019-01-28] MEDS: METHADONE 80 MG, METHADONE 30 MG PO SCH (05:54)
[2019-01-28] MEDS: chlordiazePOXIDE HCL 10 MG CAPSULE PO SCH ×2 (05:54→16:54)
[2019-01-28] MEDS: NICOTINE 7 MG/24 HOURS TOPICAL PATCH TD SCH (10:19)
[2019-01-28] MEDS: PRENATAL VITAMINS W/ FOLIC ACID TABLET (FP) PO SCH (10:20)
--- NOTE | 2019-01-28 11:23 | PN ---
S CIWA - CIWA Score Nausea/Vomitin-No Nausea/No Vomiting Muscle Tremors: None Anxiety: 2 Agitation: 0-Normal Activity Paroxysmal Sweats: 2 Orientation: 0-Oriented Tacttile Disturbances: 0-None Auditory Disturbances: 0-None Visual Disturbances: 0-None Headache: 1-Very Mild CIWA-Ar Total Score: 5 S Progress Note (SOAP) Subjective: c/o headache, sweats, and anxiety. Objective: 01/28/19 11:22 Vital Signs 01/28/19 01/28/19 01/28/19 03:30 06:49 09:33 Temperature 97.3 F L 97.6 F Pulse Rate 50 L 77 Respiratory 18 16 18 Rate Blood Pressure 137/74 115/73 Lab Results WBC 6.7 K/mm3 (4.0-10.0) 01/25/19 07:00 RBC 4.27 M/mm3 (4.00-5.60) 01/25/19 07:00 Hgb 12.9 GM/dL (11.7-16.9) 01/25/19 07:00 Hct 38.3 % (35.4-49) 01/25/19 07:00 MCV 89.7 fl (80-96) 01/25/19 07:00 MCHC 33.7 g/dl (32.0-35.9) 01/25/19 07:00 RDW 13.4 % (11.9-15.9) 01/25/19 07:00 Plt Count 225 K/MM3 (134-434) 01/25/19 07:00 Sodium 142 mmol/L (136-145) 01/25/19 07:00 Potassium 4.2 mmol/L (3.5-5.1) 01/25/19 07:00 Chloride 107 mmol/L (98-107) 01/25/19 07:00 Carbon Dioxide 31 mmol/L (21-32) 01/25/19 07:00 Anion Gap 5 MMOL/L (8-16) L 01/25/19 07:00 BUN 18.1 mg/dL (7-18) H 01/25/19 07:00 Creatinine 0.8 mg/dL (0.55-1.3) 01/25/19 07:00 Random Glucose 112 mg/dL (74-106) H 01/25/19 07:00 Calcium 9.1 mg/dL (8.5-10.1) 01/25/19 07:00 Labs noted. Assessment: 01/28/19 11:22 AOX3, in no acute distress. Full ROM, ambulating in the unit. Withdrawal symptoms. For discharge 01/29/19. Plan: continue detox.
[2019-01-28] MEDS: ALBUTEROL SO4 8 GM HFA INHALER IH SCH ×6 (11:41→22:20)
[2019-01-28] MEDS ORDERED: ONDANSETRON *ODT* 4 MG TABLET SL ONE (11:45)
[2019-01-28] MEDS: METHOCARBAMOL 500 MG TABLET PO PRN ×2 (16:56→22:48)
[2019-01-28] MEDS: THIAMINE HCL 100 MG TABLET (FP) PO SCH (22:07)
[2019-01-28] MEDS: MELATONIN 5 MG TABLETS PO PRN (22:08)
[2019-01-29] MEDS ORDERED: chlordiazePOXIDE HCL 10 MG CAPSULE PO ONE (05:00)
[2019-01-29] MEDS ORDERED: METHADONE HCL 10 MG TABLET ONE (05:21)
[2019-01-29] MEDS ORDERED: METHADONE HCL 40 MG DISPERSABLE TABLET ONE (05:21)
[2019-01-29] MEDS: METHADONE 80 MG, METHADONE 30 MG PO SCH (06:08)
--- NOTE | 2019-01-29 09:17 | DS ---
[facility] Detox Discharge Summary Admission Date: 01/24/19 Discharge Date: 01/29/19 - History Present History: Alcohol Dependence, Cocaine Dependence - Physical Exam Results Vital Signs: Vital Signs Temperature 97.5 F L 01/29/19 06:40 Pulse Rate 55 L 01/29/19 06:40 Respiratory Rate 16 01/29/19 06:40 Blood Pressure 108/60 01/29/19 06:40 O2 Sat by Pulse Oximetry (%) Pertinent Admission Physical Exam Findings: pt arrived in withdrawals Laboratory Tests 01/25/19 01/25/19 01/25/19 07:00 07:00 07:00 WBC 6.7 RBC 4.27 Hgb 12.9 Hct 38.3 MCV 89.7 MCH 30.2 MCHC 33.7 RDW 13.4 Plt Count 225 MPV 9.0 Sodium 142 Potassium 4.2 Chloride 107 Carbon Dioxide 31 Anion Gap 5 L BUN 18.1 H Creatinine 0.8 Est GFR (CKD-EPI)AfAm 120.72 Est GFR (CKD-EPI)NonAf 104.16 Random Glucose 112 H Calcium 9.1 Total Bilirubin 0.3 AST 18 ALT 29 Alkaline Phosphatase 123 H Total Protein 6.4 Albumin 3.0 L RPR Titer Nonreactive HIV 1&2 Ag/Ab, 4th Gen HIV 1&2 Antibody Screen HIV P24 Antigen 01/25/19 01/25/19 07:00 10:00 WBC RBC Hgb Hct MCV MCH MCHC RDW Plt Count MPV Sodium Potassium Chloride Carbon Dioxide Anion Gap BUN Creatinine Est GFR (CKD-EPI)AfAm Est GFR (CKD-EPI)NonAf Random Glucose Calcium Total Bilirubin AST ALT Alkaline Phosphatase Total Protein Albumin RPR Titer HIV 1&2 Ag/Ab, 4th Gen Non reactive HIV 1&2 Antibody Screen Cancelled HIV P24 Antigen Cancelled pt is aaox3 ambulating no acute distress no s/s of withdrawal sx - Treatment Hospital Course: Detox Protocol Followed, Detoxed Safely, Responded well, Discharged Condition Good, Rehab Referral Accepted Patient has Accepted a Rehab Referral to: pt referred to [facility] inpatient rehab - Medication Discharge Medications: Ambulatory Orders Albuterol Sulfate Inhaler - [Ventolin HFA Inhaler -] 1 - 2 inh PO QID 10/18/14 - Diagnosis (1) Alcohol dependence with withdrawal, uncomplicated Current Visit: Yes Status: Chronic (2) Cocaine dependence Current Visit: Yes Status: Chronic Qualifiers: Substance use status: uncomplicated Qualified Code(s): F14.20 - Cocaine dependence, uncomplicated (3) Opioid dependence on agonist therapy Current Visit: Yes Status: Acute (4) PPD positive Current Visit: Yes Status: Acute (5) Substance induced mood disorder Current Visit: Yes Status: Acute (6) Substance-induced sleep disorder Current Visit: Yes Status: Acute (7) Nicotine dependence Current Visit: Yes Status: Chronic Qualifiers: Nicotine product type: cigarettes Substance use status: uncomplicated Qualified Code(s): F17.210 - Nicotine dependence, cigarettes, uncomplicated (8) Opioid dependence on agonist therapy Current Visit: Yes Status: Chronic (9) Hepatitis C Current Visit: Yes Status: Resolved (10) Alcohol dependence Current Visit: Yes Status: Chronic Qualifiers: Substance use status: uncomplicated Qualified Code(s): F10.20 - Alcohol dependence, uncomplicated (11) Insomnia Current Visit: No Status: Acute (12) Substance induced mood disorder Current Visit: No Status: Acute (13) Asthma Current Visit: No Status: Chronic Qualifiers: Asthma severity: mild Asthma persistence: intermittent (14) Benzodiazepine dependence Current Visit: Yes Status: Chronic (15) Depression Current Visit: No Status: Chronic (16) Substance-induced anxiety disorder Current Visit: No Status: Chronic (17) Weight loss Current Visit: No Status: Suspected - AMA Did Patient Leave Against Medical Advice: No
[2019-01-29 09:52] VITALS: BP 139/87; PULSE 81; TEMP 98.2
[2019-01-29] MEDS: NICOTINE 7 MG/24 HOURS TOPICAL PATCH TD SCH (10:23)
[2019-01-29] MEDS: PRENATAL VITAMINS W/ FOLIC ACID TABLET (FP) PO SCH (10:24)
[2019-01-29] MEDS: ALBUTEROL SO4 8 GM HFA INHALER IH SCH (10:24)
[2019-01-29] MEDS: METHOCARBAMOL 500 MG TABLET PO PRN (10:25)
== END 2019-01-29 12:57 | disposition home or self-care (01) | DRG 773 ==
LOC: YASAS 12:07 → Y6N 15:26
PROVIDERS: ADMIT Surgery; ATTEND Surgery
PROC: HZ2ZZZZ Detoxification Services for Substance Abuse Treatment (ICD-10-PCS; principal; 2019-01-24)
DX: F10.230 Alcohol dependence with withdrawal, uncomplicated (principal); F11.20 Opioid dependence, uncomplicated; F14.20 Cocaine dependence, uncomplicated; F17.210 Nicotine dependence, cigarettes, uncomplicated; F19.24 Other psychoactive substance dependence with psychoactive substance-induced mood disorder; F19.280 Other psychoactive substance dependence with psychoactive substance-induced anxiety disorder; F19.282 Other psychoactive substance dependence with psychoactive substance-induced sleep disorder; F32.9 Major depressive disorder, single episode, unspecified; G47.00 Insomnia, unspecified; R76.11 Nonspecific reaction to tuberculin skin test without active tuberculosis; J45.909 Unspecified asthma, uncomplicated; R63.4 Abnormal weight loss; Z86.69 Personal history of other diseases of the nervous system and sense organs; Z91.14 Patient's other noncompliance with medication regimen
CPT/HCPCS: 36415; 80053; 85027; 86593; 87389; Q0162

== ENCOUNTER 2019-07-27 12:38 | Inpatient (IN) | payer OTHER ==
--- NOTE | 2019-07-27 13:33 | BHS.RME ---
Substance Use & Tx History - Substance Use History Alcohol Substance amount: 2.5 pints rum Frequency of use: Daily Substance route: Oral Date of Last Use: 07/26/19 Opiates (Heroin) Substance amount: 1 bundle Frequency of use: Daily Substance route: Injection (ex: intravenous or skin popping) Date of Last Use: 07/27/19 Cocaine (Powder) Substance amount: $60 Frequency of use: Daily Substance route: Smoking, Injection (ex: intravenous or skin popping) Date of Last Use: 07/26/19 Physical/Psych/Mental Status - Behavior General Behavior: Increased activity (restlessness, agitation) Eye Contact: Normal - Cooperativeness Cooperativeness: Cooperative - Thinking Thought Processes: Tight, Logical, Goal Directed - Physical Health Problems Is patient presently having any pain?: No Does patient presently have any injuries (include location): No Does patient currently have a fever: No Is patient : No COWS - Scale Resting Pulse: 0= [place] 80 or Below Sweatin= Chills/Flushing Restless Observation: 1= Difficult to Sit Still Pupil Size: 1= Pupils >than Normal Bone or Joint Aches: 2= Severe Diffuse Aches Runny Nose/ Eye Tearin= Runny Nose/Eyes GI Upset > 30mins: 2= Nausea/Diarrhea Tremor Observation: 2= Slight Tremor Visible Yawning Observation: 1= 1-2x During Session Anxiety or Irritability: 1=Feels Anxious/Irritable Goose Flesh Skin: 0=Smooth Skin COWS Score: 13 CIWA Nausea/Vomitin-Mild Nausea/No Vomiting Muscle Tremors: 4-Moderate,w/Arms Extend Anxiety: 3 Agitation: 2 Paroxysmal Sweats: 1-Minimal Palms Moist Orientation: 0-Oriented Tacttile Disturbances: 0-None Auditory Disturbances: 0-None Visual Disturbances: 0-None Headache: 1-Very Mild CIWA-Ar Total Score: 12
--- NOTE | 2019-07-27 14:22 | HP ---
COWS - Scale Resting Pulse: 0= RI 80 or Below Sweatin= Chills/Flushing Restless Observation: 1= Difficult to Sit Still Pupil Size: 1= Pupils >than Normal Bone or Joint Aches: 2= Severe Diffuse Aches Runny Nose/ Eye Tearin= Runny Nose/Eyes GI Upset > 30mins: 2= Nausea/Diarrhea Tremor Observation: 2= Slight Tremor Visible Yawning Observation: 1= 1-2x During Session Anxiety or Irritability: 1=Feels Anxious/Irritable Goose Flesh Skin: 0=Smooth Skin COWS Score: 13 CIWA Score Nausea/Vomitin-Mild Nausea/No Vomiting Muscle Tremors: 4-Moderate,w/Arms Extend Anxiety: 3 Agitation: 2 Paroxysmal Sweats: 1-Minimal Palms Moist Orientation: 0-Oriented Tacttile Disturbances: 0-None Auditory Disturbances: 0-None Visual Disturbances: 0-None Headache: 1-Very Mild CIWA-Ar Total Score: 12 - Admission Criteria OASAS Guidelines: Admission for Medically Managed Detox: Requires at least one of the followin. CIWA greater than 12 2. Seizures within the past 24 hours 3. Delirium tremens within the past 24 hours 4. Hallucinations within the past 24 hours 5. Acute intervention needed for co occurring medical disorder 6. Acute intervention needed for co occurring psychiatric disorder 7. Severe withdrawal that cannot be handled at a lower level of care (continued vomiting, continued diarrhea, abnormal vital signs) requiring intravenous medication and/or fluids 8. Admitting History and Physical - Admission Chief Complaint: Mr. Leung is a 48 yo gentleman who presents to [facility] asking for admission to detox for alcohol and heroin. History of Present Illness: Mr. Leung is a 48 yo gentleman who presents to [facility] asking for admission to detox for alcohol and heroin. PMH: Asthma on albuterol Psych: depression, anxiety, on no meds Substance use history Alcohol: 5-6 .5 pints rum per day, one case beer per day 16 oz, first use age 6y , last drink this am. No black outs , no seizures Heroin: 10 bags per day, since age 23y, last use yesterday. No OD. Has Narcan. Injection. In methadone program 110 mg, had dose this am. [facility]/ [facility] Crack: 7 bags daily, first use age 23 y, last use yesterday Nicotine: 3-4 cigs per day Denies: benzo History Source: Patient Limitations to Obtaining History: No Limitations - Past Medical History Pulmonary: Yes: Asthma Psych: Yes: Anxiety, Depression - Smoking History Smoking history: Current every day smoker Have you smoked in the past 12 months: Yes Aproximately how many cigarettes per day: 6 - Alcohol/Substance Use Hx Alcohol Use: Yes Admission [facility] Allergies/Adverse Reactions: Allergies Allergy/AdvReac Type Severity Reaction Status Date / Time No Known Allergies Allergy Verified 01/24/19 13:01 - Ebola screening Have you traveled outside of the country in the last 21 days: No Have you had contact with anyone from an Ebola affected area: No Have you been sick,other than usual withdrawal symptoms: No Do you have a fever: No - Review of Systems Constitutional: No Symptoms Reported EENT: reports: No Symptoms Reported Respiratory: reports: No Symptoms reported Cardiac: reports: No Symptoms Reported GI: reports: Nausea, Vomiting : reports: No Symptoms Reported Musculoskeletal: reports: Back Pain Integumentary: reports: No Symptoms Reported Neuro: reports: No Symptoms reported Endocrine: reports: No Symptoms Reported Hematology: reports: No Symptoms Reported Psychiatric: reports: other (no SI, no hallucinations) Patient History - Patient Medical History Hx Anemia: No Hx Asthma: Yes Hx Chronic Obstructive Pulmonary Disease (COPD): No Hx Cancer: No Hx Cardiac Disorders: No Hx Congestive Heart Failure: No Hx Hypertension: No Hx Hypercholesterolemia: No Hx Pacemaker: No HX Cerebrovascular Accident: No Hx Seizures: No Hx Dementia: No Hx Diabetes: No Hx Gastrointestinal Disorders: No Hx Liver Disease: No Hx Genitourinary Disorders: No Hx Sexually Transmitted Disorders: No Hx Renal Disease (ESRD): No Hx Thyroid Disease: No Hx Human Immunodeficiency Virus (HIV): No (taking the test ) Hx Hepatitis C: No (possible , taking the test ) Hx Depression: Yes Hx Suicide Attempt: No Hx Schizophrenia: No - Patient Surgical History Past Surgical History: No Hx Neurologic Surgery: No Hx Cataract Extraction: No Hx Cardiac Surgery: No Hx Lung Surgery: No Hx Breast Surgery: No Hx Breast Biopsy: No Hx Abdominal Surgery: No Hx Appendectomy: No Hx Cholecystectomy: No Hx Genitourinary Surgery: No Hx Section: No Hx Orthopedic Surgery: No Anesthesia Reaction: No - PPD History Date: 03/10/18 Results: 00mm - Smoking Cessation Smoking history: Current some day smoker Have you smoked in the past 12 months: Yes Aproximately how many cigarettes per day: 4 Hx Chewing Tobacco Use: No Initiated information on smoking cessation: Yes 'Breaking Loose' booklet given: 07/27/19 Admission Physical Exam [facility] - Physical General Appearance: Yes: Thin HEENTM: Yes: Hearing grossly Normal, Normal Voice Respiratory: Yes: Lungs Clear, Wheezing Neck: Yes: Within Normal Limits Breast: Yes: Breast Exam Deferred Cardiology: Yes: Regular Rate, S1, S2 Abdominal: Yes: Normal Bowel Sounds, Non Tender, Flat, Soft Genitourinary: Yes: Other (deferred) Back: Yes: Normal Inspection Musculoskeletal: Yes: Within Normal Limits Extremities: Yes: Within Normal Limits Neurological: Yes: Alert, Normal Mood/Affect Integumentary: Yes: Track Varma - Diagnostic (1) Opioid dependence on agonist therapy Current Visit: Yes Status: Chronic (2) Alcohol dependence with withdrawal, uncomplicated Current Visit: Yes Status: Acute (3) Asthma Current Visit: No Status: Chronic Qualifiers: Asthma severity: mild Asthma persistence: intermittent (4) Cocaine dependence Current Visit: No Status: Chronic Qualifiers: Substance use status: uncomplicated Qualified Code(s): F14.20 - Cocaine dependence, uncomplicated Cleared for Admission [facility] - Detox or Rehab [facility] Level of Care: Medically Managed Breathalyzer - Breathalyzer Breathalyzer: 0 Urine Drug Screen - Test Device Lot number: [id number] Expiration date: 05/08/21 - Control Is test valid?: Yes - Results Drug screen NEGATIVE: No Urine drug screen results: MERISSA-Cocaine, MOP-Opiates, MTD-Methadone, BAR- Barbiturates, BZO-Benzodiazepines Inpatient Rehab Admission - Rehab Decision to Admit Inpatient rehab admission?: No
[2019-07-27] MEDS ORDERED: IBUPROFEN 400 MG TABLET (FP) PO PRN ×2 (14:27→15:39)
[2019-07-27] MEDS ORDERED: METHOCARBAMOL 500 MG TABLET PO PRN (14:27)
[2019-07-27] MEDS ORDERED: MAG HYDROX/AL HYDROX/SIMETH 30 ML UNIT-DOSE CUP PO PRN (14:27)
[2019-07-27] MEDS ORDERED: MENTHOL/PHENOL 1 EACH UD MM PRN (14:27)
[2019-07-27] MEDS ORDERED: chlordiazePOXIDE HCL 25 MG CAPSULE PO PRN (14:27)
[2019-07-27] MEDS ORDERED: MAGNESIUM HYDROX 2400MG/30ML ORAL SUSPENSION 30 ML CUP PO PRN (14:27)
[2019-07-27] MEDS ORDERED: hydrOXYzine PAMOATE 25 MG CAPSULE (FP) PO PRN (14:27)
[2019-07-27] MEDS ORDERED: MAGNESIUM CITRATE 300 ML BOTTLE PO PRN (14:27)
[2019-07-27] MEDS ORDERED: ACETAMINOPHEN 325 MG TABLET (FP) PO PRN ×2 (14:27)
[2019-07-27] MEDS ORDERED: BISMUTH SUBSALICYLATE 524 MG/30 ML UD PO PRN ×2 (14:27→15:41)
[2019-07-27] MEDS: chlordiazePOXIDE HCL 25 MG CAPSULE PO SCH ×2 (16:37→22:03)
[2019-07-27 17:27] LABS: HEMATOCRIT 41.8 % (35.4-49); HEMOGLOBIN 14.2 GM/dL (11.7-16.9); MCH 30.2 pg (25.7-33.7); MEAN PLT VOLUME 8.8 fl (7.5-11.1); PLATELET COUNT 318 K/MM3 (134-434); RDW 13.5 % (11.9-15.9); WHITE BLOOD COUNT 7.8 K/mm3 (4.0-10.0)
[2019-07-27 17:42] LABS: ALBUMIN 3.6 g/dl (3.4-5.0); BILIRUBIN,TOTAL 0.5 mg/dL (0.2-1); BLOOD UREA NITROGEN 16.4 mg/dL (7-18); CALCIUM 8.9 mg/dL (8.5-10.1); CREATININE 0.8 mg/dL (0.55-1.3); POTASSIUM 4.3 mmol/L (3.5-5.1); TOT PROT 7.9 g/dl (6.4-8.2)
[2019-07-27] MEDS ORDERED: ALBUTEROL SO4 HFA INHALER IH PRN ×2 (18:00)
[2019-07-27] MEDS: THIAMINE HCL 100 MG TABLET (FP) PO SCH (22:03)
[2019-07-27] MEDS: MELATONIN 5 MG TABLETS PO PRN (22:04)
[2019-07-28] MEDS ORDERED: METHADONE HCL 10 MG TABLET ONE (04:59)
[2019-07-28] MEDS ORDERED: METHADONE HCL 40 MG DISPERSABLE TABLET ONE (04:59)
[2019-07-28] MEDS: METHADONE 80 MG, METHADONE 30 MG PO SCH (05:44)
[2019-07-28] MEDS: chlordiazePOXIDE HCL 25 MG CAPSULE PO SCH ×4 (05:44→22:10)
[2019-07-28] MEDS ORDERED: METHADONE HCL 10 MG TABLET PO SCH (06:00)
[2019-07-28] MEDS: PRENATAL VITAMINS W/ FOLIC ACID TABLET (FP) PO SCH (11:09)
--- NOTE | 2019-07-28 12:45 | PN ---
[facility] CIWA - CIWA Score Nausea/Vomitin-Mild Nausea/No Vomiting Muscle Tremors: 2 Anxiety: 1-Mildly Anxious Agitation: 1-Slight > Activity Paroxysmal Sweats: 1-Minimal Palms Moist Orientation: 1-Uncertain about Date Tacttile Disturbances: 1-Very Mild Itch/Numbness Auditory Disturbances: 1-Very Mild Visual Disturbances: 0-None Headache: 0-None Present CIWA-Ar Total Score: 9 [facility]HS Progress Note (SOAP) Subjective: pt admitted for AUD, pt on methadone MAT. Says he is feeling fine today O: Vital Signs - 24 hr 07/27/19 07/27/19 07/28/19 14:54 20:55 03:51 Temperature 97.9 F 98.2 F Pulse Rate 72 65 Respiratory 18 16 18 Rate Blood Pressure 119/70 114/68 07/28/19 07/28/19 07:27 08:42 Temperature 97.5 F L 97.3 F L Pulse Rate 54 L 76 Respiratory 18 18 Rate Blood Pressure 104/56 L 107/65 Laboratory Tests 07/27/19 07/27/19 07/27/19 14:45 14:45 14:45 WBC 7.8 RBC 4.70 Hgb 14.2 Hct 41.8 MCV 89.0 MCH 30.2 MCHC 34.0 RDW 13.5 Plt Count 318 D MPV 8.8 Sodium 136 Potassium 4.3 Chloride 100 Carbon Dioxide 31 Anion Gap 4 L BUN 16.4 Creatinine 0.8 Est GFR (CKD-EPI)AfAm 120.72 Est GFR (CKD-EPI)NonAf 104.16 Random Glucose 141 H Calcium 8.9 Total Bilirubin 0.5 AST 30 ALT 26 Alkaline Phosphatase 149 H Total Protein 7.9 Albumin 3.6 RPR Titer Nonreactive a/p; AUD- continue detox protocol, continue MAT
[2019-07-28] MEDS: MELATONIN 5 MG TABLETS PO PRN (22:10)
[2019-07-28] MEDS: THIAMINE HCL 100 MG TABLET (FP) PO SCH (22:10)
[2019-07-29] MEDS ORDERED: METHADONE HCL 40 MG DISPERSABLE TABLET ONE (04:37)
[2019-07-29] MEDS ORDERED: METHADONE HCL 10 MG TABLET ONE (04:37)
[2019-07-29] MEDS: METHADONE 80 MG, METHADONE 30 MG PO SCH (05:31)
[2019-07-29] MEDS: chlordiazePOXIDE HCL 25 MG CAPSULE PO SCH ×4 (05:32→22:44)
[2019-07-29] MEDS: PRENATAL VITAMINS W/ FOLIC ACID TABLET (FP) PO SCH (10:40)
--- NOTE | 2019-07-29 11:41 | PN ---
S CIWA - CIWA Score Nausea/Vomitin-Mild Nausea/No Vomiting Muscle Tremors: 2 Anxiety: 1-Mildly Anxious Agitation: 1-Slight > Activity Paroxysmal Sweats: 1-Minimal Palms Moist Orientation: 0-Oriented Tacttile Disturbances: 0-None Auditory Disturbances: 0-None Visual Disturbances: 0-None Headache: 1-Very Mild CIWA-Ar Total Score: 7 BHS Progress Note (SOAP) Subjective: pt admitted for AUD, pt on methadone MAT. Says he is feeling fine today, pt without complaints, c/o headache O: Vital Signs - 24 hr 07/28/19 07/28/19 07/28/19 13:00 16:58 20:58 Temperature 98.1 F 97.7 F 97.7 F Pulse Rate 71 64 62 Respiratory 18 17 18 Rate Blood Pressure 113/62 101/61 105/60 07/29/19 07/29/19 07/29/19 00:43 04:28 05:51 Temperature 97.7 F Pulse Rate 57 L Respiratory 18 18 19 Rate Blood Pressure 105/56 L Laboratory Tests 07/27/19 07/27/19 07/27/19 14:45 14:45 14:45 WBC 7.8 RBC 4.70 Hgb 14.2 Hct 41.8 MCV 89.0 MCH 30.2 MCHC 34.0 RDW 13.5 Plt Count 318 D MPV 8.8 Sodium 136 Potassium 4.3 Chloride 100 Carbon Dioxide 31 Anion Gap 4 L BUN 16.4 Creatinine 0.8 Est GFR (CKD-EPI)AfAm 120.72 Est GFR (CKD-EPI)NonAf 104.16 Random Glucose 141 H Calcium 8.9 Total Bilirubin 0.5 AST 30 ALT 26 Alkaline Phosphatase 149 H Total Protein 7.9 Albumin 3.6 RPR Titer Nonreactive a/p AUD- on detox protocol OUD- continue methadone headache- non specific, prn motrin/tylenol
[2019-07-29] MEDS: MELATONIN 5 MG TABLETS PO PRN (22:44)
[2019-07-29] MEDS: THIAMINE HCL 100 MG TABLET (FP) PO SCH (22:44)
[2019-07-30] MEDS ORDERED: chlordiazePOXIDE HCL 10 MG CAPSULE PO PRN
[2019-07-30] MEDS ORDERED: METHADONE HCL 10 MG TABLET ONE (04:34)
[2019-07-30] MEDS ORDERED: METHADONE HCL 40 MG DISPERSABLE TABLET ONE (04:35)
[2019-07-30] MEDS: chlordiazePOXIDE HCL 10 MG CAPSULE PO SCH ×4 (05:54→22:25)
[2019-07-30] MEDS: METHADONE 80 MG, METHADONE 30 MG PO SCH (05:54)
[2019-07-30] MEDS: PRENATAL VITAMINS W/ FOLIC ACID TABLET (FP) PO SCH (10:21)
--- NOTE | 2019-07-30 12:51 | PN ---
S CIWA - CIWA Score Nausea/Vomitin Muscle Tremors: 1-None Visible, but [place] Anxiety: 4-Mod. Anxious/Guarded Agitation: 3 Paroxysmal Sweats: 1-Minimal Palms Moist Orientation: 0-Oriented Tacttile Disturbances: 0-None Auditory Disturbances: 0-None Visual Disturbances: 0-None Headache: 0-None Present CIWA-Ar Total Score: 11 BHS Progress Note (SOAP) Subjective: Patient admitted for ETOH withdrawal symptoms. C/O nausea, sweating, restlessness, anxiety and poor appetite Objective: 07/30/19 12:50 Laboratory Tests 07/27/19 07/27/19 07/27/19 14:45 14:45 14:45 WBC 7.8 RBC 4.70 Hgb 14.2 Hct 41.8 MCV 89.0 MCH 30.2 MCHC 34.0 RDW 13.5 Plt Count 318 D MPV 8.8 Sodium 136 Potassium 4.3 Chloride 100 Carbon Dioxide 31 Anion Gap 4 L BUN 16.4 Creatinine 0.8 Est GFR (CKD-EPI)AfAm 120.72 Est GFR (CKD-EPI)NonAf 104.16 Random Glucose 141 H Calcium 8.9 Total Bilirubin 0.5 AST 30 ALT 26 Alkaline Phosphatase 149 H Total Protein 7.9 Albumin 3.6 RPR Titer Nonreactive Vital Signs Temperature 97.9 F 07/30/19 11:42 Pulse Rate 75 07/30/19 11:42 Respiratory Rate 18 07/30/19 11:42 Blood Pressure 127/71 07/30/19 11:42 O2 Sat by Pulse Oximetry (%) PE alert and oriented x 3 skin warm, facial moisture in nad +perrla, eoms intact bl ext mild tremors felt, full rom appear thin anxious Assessment: 07/30/19 12:51 ETOH withdrawal sx Plan: continue detox ensure
[2019-07-30] MEDS: THIAMINE HCL 100 MG TABLET (FP) PO SCH (22:25)
[2019-07-30] MEDS: MELATONIN 5 MG TABLETS PO PRN (22:26)
[2019-07-31] MEDS ORDERED: METHADONE HCL 40 MG DISPERSABLE TABLET ONE (05:06)
[2019-07-31] MEDS ORDERED: METHADONE HCL 10 MG TABLET ONE (05:06)
[2019-07-31] MEDS: METHADONE 80 MG, METHADONE 30 MG PO SCH (05:07)
[2019-07-31] MEDS: chlordiazePOXIDE HCL 10 MG CAPSULE PO SCH ×2 (05:07→17:17)
[2019-07-31] MEDS: PRENATAL VITAMINS W/ FOLIC ACID TABLET (FP) PO SCH (10:46)
--- NOTE | 2019-07-31 13:47 | PN ---
[facility] CIWA - CIWA Score Nausea/Vomitin-Mild Nausea/No Vomiting Muscle Tremors: 1-None Visible, but [place] Anxiety: 1-Mildly Anxious Agitation: 1-Slight > Activity Paroxysmal Sweats: No Perspiration Orientation: 0-Oriented Tacttile Disturbances: 0-None Auditory Disturbances: 0-None Visual Disturbances: 0-None Headache: 0-None Present CIWA-Ar Total Score: 4 S Progress Note (SOAP) Subjective: alert,irritable,anxious,interrupted sleep Objective: 07/31/19 13:46 alert,irritable,anxious,interrupted sleep 07/31/19 13:46 Vital Signs Temperature 96.6 F L 07/31/19 08:48 Pulse Rate 79 07/31/19 08:48 Respiratory Rate 16 07/31/19 08:48 Blood Pressure 120/69 07/31/19 08:48 O2 Sat by Pulse Oximetry (%) Assessment: 07/31/19 13:47 withdrawal symptom Plan: continue detox lirium regimen,discharge in am
[2019-07-31] MEDS: MELATONIN 5 MG TABLETS PO PRN (22:16)
[2019-07-31] MEDS: THIAMINE HCL 100 MG TABLET (FP) PO SCH (22:16)
[2019-08-01] MEDS ORDERED: METHADONE HCL 40 MG DISPERSABLE TABLET ONE (04:25)
[2019-08-01] MEDS ORDERED: METHADONE HCL 10 MG TABLET ONE (04:25)
[2019-08-01] MEDS ORDERED: chlordiazePOXIDE HCL 10 MG CAPSULE PO ONE (05:00)
[2019-08-01] MEDS: METHADONE 80 MG, METHADONE 30 MG PO SCH (06:00)
--- NOTE | 2019-08-01 09:25 | PN ---
[facility] CIWA - CIWA Score Nausea/Vomitin-No Nausea/No Vomiting Muscle Tremors: None Anxiety: 1-Mildly Anxious Agitation: 0-Normal Activity Paroxysmal Sweats: No Perspiration Orientation: 0-Oriented Tacttile Disturbances: 0-None Auditory Disturbances: 0-None Visual Disturbances: 0-None Headache: 0-None Present CIWA-Ar Total Score: 1 S Progress Note (SOAP) Subjective: alert,anxious Objective: 08/01/19 09:24 Vital Signs Temperature 97.9 F 08/01/19 05:50 Pulse Rate 60 08/01/19 05:50 Respiratory Rate 18 08/01/19 05:50 Blood Pressure 128/76 08/01/19 05:50 O2 Sat by Pulse Oximetry (%) Assessment: 08/01/19 09:25 detox completed,no withdrawal symptom Plan: discharge today,follow up with after care program as arrangement
--- NOTE | 2019-08-01 09:27 | DS ---
[facility] Detox Discharge Summary Admission Date: 07/27/19 Discharge Date: 08/01/19 - History Present History: Opioid Dependence, MMTP Additional Comments: alert,oriented x 3 ambulation on the unit lung clear,bilaterally no abdominal pain stable for discharge follow up with [facility] for rehab,further level of care discharge time spending 35 miins Pertinent Past History: hepatitis c nicotine dependence - Physical Exam Results Vital Signs: Vital Signs Temperature 97.9 F 08/01/19 05:50 Pulse Rate 60 08/01/19 05:50 Respiratory Rate 18 08/01/19 05:50 Blood Pressure 128/76 08/01/19 05:50 O2 Sat by Pulse Oximetry (%) Pertinent Admission Physical Exam Findings: withdrawal signs and symptom Vital Signs Temperature 97.9 F 08/01/19 05:50 Pulse Rate 60 08/01/19 05:50 Respiratory Rate 18 08/01/19 05:50 Blood Pressure 128/76 08/01/19 05:50 O2 Sat by Pulse Oximetry (%) Laboratory Last Values WBC 7.8 K/mm3 (4.0-10.0) 07/27/19 14:45 RBC 4.70 M/mm3 (4.00-5.60) 07/27/19 14:45 Hgb 14.2 GM/dL (11.7-16.9) 07/27/19 14:45 Hct 41.8 % (35.4-49) 07/27/19 14:45 MCV 89.0 fl (80-96) 07/27/19 14:45 MCH 30.2 pg (25.7-33.7) 07/27/19 14:45 MCHC 34.0 g/dl (32.0-35.9) 07/27/19 14:45 RDW 13.5 % (11.9-15.9) 07/27/19 14:45 Plt Count 318 K/MM3 (134-434) D 07/27/19 14:45 MPV 8.8 fl (7.5-11.1) 07/27/19 14:45 Sodium 136 mmol/L (136-145) 07/27/19 14:45 Potassium 4.3 mmol/L (3.5-5.1) 07/27/19 14:45 Chloride 100 mmol/L (98-107) 07/27/19 14:45 Carbon Dioxide 31 mmol/L (21-32) 07/27/19 14:45 Anion Gap 4 MMOL/L (8-16) L 07/27/19 14:45 BUN 16.4 mg/dL (7-18) 07/27/19 14:45 Creatinine 0.8 mg/dL (0.55-1.3) 07/27/19 14:45 Est GFR (CKD-EPI)AfAm 120.72 07/27/19 14:45 Est GFR (CKD-EPI)NonAf 104.16 07/27/19 14:45 Random Glucose 141 mg/dL (74-106) H 07/27/19 14:45 Calcium 8.9 mg/dL (8.5-10.1) 07/27/19 14:45 Total Bilirubin 0.5 mg/dL (0.2-1) 07/27/19 14:45 AST 30 U/L (15-37) 07/27/19 14:45 ALT 26 U/L (13-61) 07/27/19 14:45 Alkaline Phosphatase 149 U/L (45-117) H 07/27/19 14:45 Total Protein 7.9 g/dl (6.4-8.2) 07/27/19 14:45 Albumin 3.6 g/dl (3.4-5.0) 07/27/19 14:45 RPR Titer Nonreactive (NONREACTIVE) 07/27/19 14:45 - Treatment Hospital Course: Detox Protocol Followed, Detoxed Safely, Responded well, Discharged Condition Good Patient has Accepted a Rehab Referral to: [facility] - Medication Discharge Medications: Ambulatory Orders Albuterol Sulfate Inhaler - [Ventolin HFA Inhaler -] 2 inh IH PRN PRN #1 inhaler 08/01/19 - Diagnosis (1) Alcohol dependence with withdrawal, uncomplicated Current Visit: Yes Status: Acute (2) Opioid dependence on agonist therapy Current Visit: Yes Status: Chronic (3) Asthma Current Visit: No Status: Chronic Qualifiers: Asthma severity: mild Asthma persistence: intermittent (4) Depression Current Visit: No Status: Chronic (5) Nicotine dependence Current Visit: No Status: Chronic Qualifiers: Nicotine product type: cigarettes Substance use status: uncomplicated Qualified Code(s): F17.210 - Nicotine dependence, cigarettes, uncomplicated - AMA Did Patient Leave Against Medical Advice: No
[2019-08-01 09:46] VITALS: TEMP 98.1
[2019-08-01] MEDS: PRENATAL VITAMINS W/ FOLIC ACID TABLET (FP) PO SCH (10:42)
[2019-08-01 13:33] VITALS: BP 108/61; PULSE 70
== END 2019-08-01 14:49 | disposition home or self-care (01) | DRG 773 ==
LOC: YASAS 12:38 → Y6N 15:59
PROVIDERS: ADMIT Allergy & Immunology; ATTEND Allergy & Immunology
PROC: HZ2ZZZZ Detoxification Services for Substance Abuse Treatment (ICD-10-PCS; principal; 2019-07-27)
DX: F10.230 Alcohol dependence with withdrawal, uncomplicated (principal); F11.20 Opioid dependence, uncomplicated; F17.210 Nicotine dependence, cigarettes, uncomplicated; F32.9 Major depressive disorder, single episode, unspecified; J45.20 Mild intermittent asthma, uncomplicated
CPT/HCPCS: 36415; 80053; 85027; 86593

== ENCOUNTER 2020-07-23 12:43 | Inpatient (IN) | payer OTHER ==
[2020-07-23 13:52] VITALS: BMI 19.7
[2020-07-23] MEDS ORDERED: NICOTINE POLACRILEX 2 MG GUM BUC PRN (14:59)
[2020-07-23] MEDS ORDERED: ACETAMINOPHEN 325 MG TABLET (FP) PO PRN (14:59)
[2020-07-23] MEDS ORDERED: MAG HYDROX/AL HYDROX/SIMETH 30 ML UNIT-DOSE CUP PO PRN (14:59)
[2020-07-23] MEDS ORDERED: ALBUTEROL SO4 HFA INHALER IH PRN (14:59)
[2020-07-23] MEDS ORDERED: MAGNESIUM HYDROX 2400MG/30ML ORAL SUSPENSION 30 ML CUP PO PRN (14:59)
[2020-07-23] MEDS ORDERED: chlordiazePOXIDE HCL 25 MG CAPSULE PO PRN (14:59)
[2020-07-23] MEDS ORDERED: BISMUTH SUBSALICYLATE 524 MG/30 ML UD PO PRN (14:59)
[2020-07-23] MEDS ORDERED: MENTHOL/PHENOL 1 EACH UD MM PRN (14:59)
[2020-07-23] MEDS ORDERED: MAGNESIUM CITRATE 300 ML BOTTLE PO PRN (14:59)
[2020-07-23] MEDS ORDERED: ONDANSETRON *ODT* 4 MG TABLET SL PRN (14:59)
[2020-07-23] MEDS ORDERED: IBUPROFEN 400 MG TABLET (FP) PO PRN (14:59)
[2020-07-23] MEDS: ACETAMINOPHEN 325 MG TABLET (FP) PO PRN (17:42)
[2020-07-23] MEDS: hydrOXYzine PAMOATE 25 MG CAPSULE (FP) PO SCH ×2 (17:42→22:09)
[2020-07-23] MEDS: chlordiazePOXIDE HCL 25 MG CAPSULE PO SCH ×2 (17:43→22:09)
[2020-07-23] MEDS: NICOTINE 14 MG/24 HOURS TOPICAL PATCH TD SCH (17:46)
[2020-07-23 17:49] LABS: POTASSIUM 4.8 mmol/L (3.5-5.1)
[2020-07-23 17:51] LABS: HEMATOCRIT 41.5 % (35.4-49); HEMOGLOBIN 13.9 GM/dL (11.7-16.9); MCH 30.5 pg (25.7-33.7); MCHC 33.4 g/dl (32.0-35.9); MEAN CELL VOLUME 91.2 fl (80-96); MEAN PLT VOLUME 8.9 fl (7.5-11.1); PLATELET COUNT 264 K/MM3 (134-434); RBC 4.55 M/mm3 (4.00-5.60); RDW 14.2 % (11.9-15.9); WHITE BLOOD COUNT 6.3 K/mm3 (4.0-10.0)
[2020-07-23 17:53] LABS: ALBUMIN 3.3 g/dl (3.4-5.0)
[2020-07-23 17:57] LABS: BILIRUBIN,TOTAL 0.8 mg/dL (0.2-1); TOT PROT 7.1 g/dl (6.4-8.2)
[2020-07-23 18:46] LABS: HIV INTERPRETATION NEGATIVE (NEGATIVE)
[2020-07-23] MEDS ORDERED: MELATONIN 5 MG TABLETS PO SCH (22:00)
[2020-07-23] MEDS: THIAMINE HCL 100 MG TABLET (FP) PO SCH (22:08)
[2020-07-24] MEDS ORDERED: METHADONE HCL 10 MG TABLET ONE (05:29)
[2020-07-24] MEDS ORDERED: METHADONE HCL 40 MG DISPERSABLE TABLET ONE (05:30)
[2020-07-24] MEDS: chlordiazePOXIDE HCL 25 MG CAPSULE PO SCH ×4 (05:30→22:08)
[2020-07-24] MEDS: METHADONE 80 MG, METHADONE 30 MG PO SCH (05:30)
[2020-07-24] MEDS ORDERED: METHADONE HCL 10 MG TABLET PO SCH (06:00)
[2020-07-24] MEDS: hydrOXYzine PAMOATE 25 MG CAPSULE (FP) PO SCH ×2 (07:02→10:11)
[2020-07-24] MEDS: NICOTINE 14 MG/24 HOURS TOPICAL PATCH TD SCH (10:08)
[2020-07-24] MEDS: PRENATAL VITAMINS W/ FOLIC ACID TABLET (FP) PO SCH (10:11)
[2020-07-24] MEDS: hydrOXYzine PAMOATE 25 MG CAPSULE (FP) PO PRN (17:32)
[2020-07-24] MEDS: ACETAMINOPHEN 325 MG TABLET (FP) PO PRN (17:33)
[2020-07-24] MEDS: THIAMINE HCL 100 MG TABLET (FP) PO SCH (22:08)
[2020-07-24] MEDS: MELATONIN 5 MG TABLETS PO PRN (22:08)
[2020-07-25] MEDS ORDERED: METHADONE HCL 40 MG DISPERSABLE TABLET ONE (04:25)
[2020-07-25] MEDS ORDERED: METHADONE HCL 10 MG TABLET ONE (04:25)
[2020-07-25] MEDS: METHADONE 80 MG, METHADONE 30 MG PO SCH (05:25)
[2020-07-25] MEDS: chlordiazePOXIDE HCL 25 MG CAPSULE PO SCH ×4 (05:25→22:29)
[2020-07-25] MEDS: ACETAMINOPHEN 325 MG TABLET (FP) PO PRN (05:29)
[2020-07-25] MEDS: PRENATAL VITAMINS W/ FOLIC ACID TABLET (FP) PO SCH (10:13)
[2020-07-25] MEDS: NICOTINE 14 MG/24 HOURS TOPICAL PATCH TD SCH (10:14)
[2020-07-25] MEDS: THIAMINE HCL 100 MG TABLET (FP) PO SCH (22:29)
[2020-07-25] MEDS: MELATONIN 5 MG TABLETS PO PRN (22:30)
[2020-07-26] MEDS ORDERED: chlordiazePOXIDE HCL 10 MG CAPSULE PO PRN
[2020-07-26] MEDS ORDERED: METHADONE HCL 10 MG TABLET ONE (04:07)
[2020-07-26] MEDS ORDERED: METHADONE HCL 40 MG DISPERSABLE TABLET ONE (04:07)
[2020-07-26] MEDS: chlordiazePOXIDE HCL 10 MG CAPSULE PO SCH ×4 (05:35→22:27)
[2020-07-26] MEDS: METHADONE 80 MG, METHADONE 30 MG PO SCH (05:36)
[2020-07-26] MEDS: METHOCARBAMOL 500 MG TABLET PO PRN (05:36)
[2020-07-26] MEDS: PRENATAL VITAMINS W/ FOLIC ACID TABLET (FP) PO SCH (10:46)
[2020-07-26] MEDS: NICOTINE 14 MG/24 HOURS TOPICAL PATCH TD SCH (10:47)
[2020-07-26] MEDS: LIDOCAINE 5% TOPICAL PATCH TP SCH (13:14)
[2020-07-26] MEDS: LIDOCAINE PATCH REMOVAL MC SCH (22:26)
[2020-07-26] MEDS: HYDROCORTISONE 1% TOPICAL CREAM 30 GM TUBE TP PRN (22:26)
[2020-07-26] MEDS: MELATONIN 5 MG TABLETS PO PRN (22:27)
[2020-07-26] MEDS: THIAMINE HCL 100 MG TABLET (FP) PO SCH (22:27)
[2020-07-27] MEDS ORDERED: METHADONE HCL 10 MG TABLET ONE (04:54)
[2020-07-27] MEDS ORDERED: METHADONE HCL 40 MG DISPERSABLE TABLET ONE (04:55)
[2020-07-27] MEDS: METHADONE 80 MG, METHADONE 30 MG PO SCH (06:00)
[2020-07-27] MEDS: chlordiazePOXIDE HCL 10 MG CAPSULE PO SCH ×2 (06:00→17:36)
[2020-07-27] MEDS: PRENATAL VITAMINS W/ FOLIC ACID TABLET (FP) PO SCH (10:06)
[2020-07-27] MEDS: LIDOCAINE 5% TOPICAL PATCH TP SCH (10:07)
[2020-07-27] MEDS: NICOTINE 14 MG/24 HOURS TOPICAL PATCH TD SCH (10:07)
[2020-07-27] MEDS: ACETAMINOPHEN 325 MG TABLET (FP) PO PRN (17:37)
[2020-07-27] MEDS: hydrOXYzine PAMOATE 25 MG CAPSULE (FP) PO PRN (18:56)
[2020-07-27] MEDS: MELATONIN 5 MG TABLETS PO PRN (21:48)
[2020-07-27] MEDS: THIAMINE HCL 100 MG TABLET (FP) PO SCH (21:48)
[2020-07-27] MEDS: METHOCARBAMOL 500 MG TABLET PO PRN (21:49)
[2020-07-27] MEDS: LIDOCAINE PATCH REMOVAL MC SCH (21:53)
[2020-07-27] MEDS: HYDROCORTISONE 1% TOPICAL CREAM 30 GM TUBE TP PRN (21:54)
[2020-07-28] MEDS ORDERED: METHADONE HCL 10 MG TABLET ONE (04:25)
[2020-07-28] MEDS ORDERED: METHADONE HCL 40 MG DISPERSABLE TABLET ONE (04:26)
[2020-07-28] MEDS ORDERED: chlordiazePOXIDE HCL 10 MG CAPSULE PO ONE (05:00)
[2020-07-28] MEDS: METHADONE 80 MG, METHADONE 30 MG PO SCH (06:03)
[2020-07-28 09:09] VITALS: BP 117/71; PULSE 75; TEMP 96.8
[2020-07-28] MEDS: PRENATAL VITAMINS W/ FOLIC ACID TABLET (FP) PO SCH (10:12)
[2020-07-28] MEDS: NICOTINE 14 MG/24 HOURS TOPICAL PATCH TD SCH (10:12)
[2020-07-28] MEDS: LIDOCAINE 5% TOPICAL PATCH TP SCH (10:12)
== END 2020-07-28 11:30 | disposition other institution (70) | DRG 773 ==
LOC: YASAS 12:43 → Y3N 14:10
PROVIDERS: ADMIT Allergy & Immunology; ATTEND Allergy & Immunology
PROC: HZ2ZZZZ Detoxification Services for Substance Abuse Treatment (ICD-10-PCS; principal; 2020-07-23)
DX: F11.23 Opioid dependence with withdrawal (principal); F10.230 Alcohol dependence with withdrawal, uncomplicated; F14.20 Cocaine dependence, uncomplicated; F17.210 Nicotine dependence, cigarettes, uncomplicated; F19.280 Other psychoactive substance dependence with psychoactive substance-induced anxiety disorder; F19.24 Other psychoactive substance dependence with psychoactive substance-induced mood disorder; F31.9 Bipolar disorder, unspecified; F41.9 Anxiety disorder, unspecified; F43.10 Post-traumatic stress disorder, unspecified; J45.20 Mild intermittent asthma, uncomplicated; H54.62 Unqualified visual loss, left eye, normal vision right eye; L85.3 Xerosis cutis; Z62.810 Personal history of physical and sexual abuse in childhood; R63.4 Abnormal weight loss; Z68.1 Body mass index [BMI] 19.9 or less, adult; Z88.6 Allergy status to analgesic agent; Z56.0 Unemployment, unspecified; Z59.0 Homelessness
CPT/HCPCS: 36415; 80053; 85027; 86780; 87389; 93005; 93010; C9803; U0003

== ENCOUNTER 2020-07-28 11:30 | Inpatient (IN) | payer OTHER ==
[2020-07-28] MEDS ORDERED: MAG HYDROX/AL HYDROX/SIMETH 30 ML UNIT-DOSE CUP PO PRN (12:11)
[2020-07-28] MEDS ORDERED: LOPERAMIDE HCL 2 MG CAPSULE PO PRN (12:11)
[2020-07-28] MEDS ORDERED: MAGNESIUM HYDROX 2400MG/30ML ORAL SUSPENSION 30 ML CUP PO PRN (12:11)
[2020-07-28] MEDS ORDERED: MAGNESIUM CITRATE 300 ML BOTTLE PO PRN (12:11)
[2020-07-28] MEDS ORDERED: guaiFENesin 200 MG/10 ML 10 ML UNIT-DOSE CUPS PO PRN (12:11)
[2020-07-28] MEDS ORDERED: NICOTINE POLACRILEX 2 MG GUM BUC PRN (12:11)
[2020-07-28] MEDS ORDERED: MENTHOL/PHENOL 1 EACH UD MM PRN (12:11)
[2020-07-28] MEDS ORDERED: P-EPHED 60MG/TRIPROLIDI 2.5MG TABLET PO PRN (12:11)
[2020-07-28] MEDS ORDERED: ALBUTEROL SO4 HFA INHALER IH PRN (12:13)
[2020-07-28] MEDS ORDERED: ALBUTEROL SO4 HFA INHALER IH ONE (18:42)
[2020-07-28] MEDS: THIAMINE HCL 100 MG TABLET (FP) PO SCH (21:55)
[2020-07-28] MEDS: MELATONIN 5 MG TABLETS PO SCH (21:55)
[2020-07-29] MEDS ORDERED: METHADONE HCL 10 MG TABLET ONE (04:48)
[2020-07-29] MEDS ORDERED: METHADONE HCL 40 MG DISPERSABLE TABLET ONE (04:48)
[2020-07-29] MEDS: METHADONE 80 MG, METHADONE 30 MG PO SCH (06:25)
[2020-07-29] MEDS: ACETAMINOPHEN 325 MG TABLET (FP) PO PRN (06:26)
[2020-07-29] MEDS: PRENATAL VITAMINS W/ FOLIC ACID TABLET (FP) PO SCH (09:45)
[2020-07-29] MEDS: NICOTINE 7 MG/24 HOURS TOPICAL PATCH TD SCH (09:46)
[2020-07-29] MEDS: ALBUTEROL SO4 HFA INHALER IH PRN (09:46)
[2020-07-29] MEDS ORDERED: METHADONE HCL 40 MG DISPERSABLE TABLET PO SCH (10:00)
[2020-07-29] MEDS: MELATONIN 5 MG TABLETS PO SCH (21:22)
[2020-07-29] MEDS: THIAMINE HCL 100 MG TABLET (FP) PO SCH (21:22)
[2020-07-30] MEDS ORDERED: METHADONE HCL 40 MG DISPERSABLE TABLET ONE (03:11)
[2020-07-30] MEDS ORDERED: METHADONE HCL 10 MG TABLET ONE (03:11)
[2020-07-30] MEDS: METHADONE 80 MG, METHADONE 30 MG PO SCH (05:59)
[2020-07-30] MEDS: NICOTINE 7 MG/24 HOURS TOPICAL PATCH TD SCH (09:53)
[2020-07-30] MEDS: PRENATAL VITAMINS W/ FOLIC ACID TABLET (FP) PO SCH (09:53)
[2020-07-30] MEDS: THIAMINE HCL 100 MG TABLET (FP) PO SCH (21:22)
[2020-07-30] MEDS: hydrOXYzine PAMOATE 25 MG CAPSULE (FP) PO PRN (21:22)
[2020-07-30] MEDS: MELATONIN 5 MG TABLETS PO SCH (21:22)
[2020-07-31] MEDS ORDERED: METHADONE HCL 10 MG TABLET ONE (03:21)
[2020-07-31] MEDS ORDERED: METHADONE HCL 40 MG DISPERSABLE TABLET ONE (03:21)
[2020-07-31] MEDS: METHADONE 80 MG, METHADONE 30 MG PO SCH (06:00)
[2020-07-31] MEDS: PRENATAL VITAMINS W/ FOLIC ACID TABLET (FP) PO SCH (09:29)
[2020-07-31] MEDS: NICOTINE 7 MG/24 HOURS TOPICAL PATCH TD SCH (09:29)
[2020-07-31] MEDS: ALBUTEROL SO4 HFA INHALER IH PRN (09:30)
[2020-07-31] MEDS: MELATONIN 5 MG TABLETS PO SCH (21:01)
[2020-07-31] MEDS: THIAMINE HCL 100 MG TABLET (FP) PO SCH (21:02)
[2020-08-01] MEDS ORDERED: METHADONE HCL 40 MG DISPERSABLE TABLET ONE (03:15)
[2020-08-01] MEDS ORDERED: METHADONE HCL 10 MG TABLET ONE (03:16)
[2020-08-01] MEDS: METHADONE 80 MG, METHADONE 30 MG PO SCH (06:05)
[2020-08-01] MEDS: PRENATAL VITAMINS W/ FOLIC ACID TABLET (FP) PO SCH (09:56)
[2020-08-01] MEDS: NICOTINE 7 MG/24 HOURS TOPICAL PATCH TD SCH (09:56)
[2020-08-01] MEDS: ALBUTEROL SO4 HFA INHALER IH PRN (09:58)
[2020-08-01] MEDS: MELATONIN 5 MG TABLETS PO SCH (21:05)
[2020-08-01] MEDS: THIAMINE HCL 100 MG TABLET (FP) PO SCH (21:05)
[2020-08-02] MEDS ORDERED: METHADONE HCL 10 MG TABLET ONE (03:52)
[2020-08-02] MEDS ORDERED: METHADONE HCL 40 MG DISPERSABLE TABLET ONE (03:52)
[2020-08-02] MEDS: METHADONE 80 MG, METHADONE 30 MG PO SCH (06:08)
[2020-08-02] MEDS: ALBUTEROL SO4 HFA INHALER IH PRN (09:41)
[2020-08-02] MEDS: NICOTINE 7 MG/24 HOURS TOPICAL PATCH TD SCH (09:41)
[2020-08-02] MEDS: PRENATAL VITAMINS W/ FOLIC ACID TABLET (FP) PO SCH (09:41)
[2020-08-02] MEDS: MELATONIN 5 MG TABLETS PO SCH (21:11)
[2020-08-02] MEDS: THIAMINE HCL 100 MG TABLET (FP) PO SCH (21:11)
[2020-08-03] MEDS ORDERED: METHADONE HCL 40 MG DISPERSABLE TABLET ONE (03:29)
[2020-08-03] MEDS ORDERED: METHADONE HCL 10 MG TABLET ONE (03:29)
[2020-08-03] MEDS: METHADONE 80 MG, METHADONE 30 MG PO SCH (06:05)
[2020-08-03] MEDS: ALBUTEROL SO4 HFA INHALER IH PRN ×2 (09:42→21:34)
[2020-08-03] MEDS: PRENATAL VITAMINS W/ FOLIC ACID TABLET (FP) PO SCH (09:42)
[2020-08-03] MEDS: NICOTINE 7 MG/24 HOURS TOPICAL PATCH TD SCH (09:42)
[2020-08-03] MEDS: MELATONIN 5 MG TABLETS PO SCH (21:32)
[2020-08-03] MEDS: THIAMINE HCL 100 MG TABLET (FP) PO SCH (21:33)
[2020-08-03] MEDS: hydrOXYzine PAMOATE 25 MG CAPSULE (FP) PO PRN (21:33)
[2020-08-03] MEDS: ACETAMINOPHEN 325 MG TABLET (FP) PO PRN (21:33)
[2020-08-04] MEDS ORDERED: METHADONE HCL 10 MG TABLET ONE (03:14)
[2020-08-04] MEDS ORDERED: METHADONE HCL 40 MG DISPERSABLE TABLET ONE (03:14)
[2020-08-04] MEDS: METHADONE 80 MG, METHADONE 30 MG PO SCH (06:06)
[2020-08-04] MEDS: NICOTINE 7 MG/24 HOURS TOPICAL PATCH TD SCH (09:41)
[2020-08-04] MEDS: PRENATAL VITAMINS W/ FOLIC ACID TABLET (FP) PO SCH (09:41)
[2020-08-04] MEDS: MELATONIN 5 MG TABLETS PO SCH (21:03)
[2020-08-04] MEDS: THIAMINE HCL 100 MG TABLET (FP) PO SCH (21:03)
[2020-08-04] MEDS: ALBUTEROL SO4 HFA INHALER IH PRN (21:04)
[2020-08-04] MEDS: hydrOXYzine PAMOATE 25 MG CAPSULE (FP) PO PRN (21:05)
[2020-08-05] MEDS ORDERED: METHADONE HCL 40 MG DISPERSABLE TABLET ONE (05:55)
[2020-08-05] MEDS ORDERED: METHADONE HCL 10 MG TABLET ONE (05:56)
[2020-08-05] MEDS: METHADONE 80 MG, METHADONE 30 MG PO SCH (06:10)
[2020-08-05] MEDS: PRENATAL VITAMINS W/ FOLIC ACID TABLET (FP) PO SCH (09:47)
[2020-08-05] MEDS: NICOTINE 7 MG/24 HOURS TOPICAL PATCH TD SCH (09:47)
[2020-08-05] MEDS: THIAMINE HCL 100 MG TABLET (FP) PO SCH (21:45)
[2020-08-05] MEDS: MELATONIN 5 MG TABLETS PO SCH (21:45)
[2020-08-05] MEDS: hydrOXYzine PAMOATE 25 MG CAPSULE (FP) PO PRN (21:46)
[2020-08-06] MEDS ORDERED: METHADONE HCL 10 MG TABLET ONE (05:50)
[2020-08-06] MEDS ORDERED: METHADONE HCL 40 MG DISPERSABLE TABLET ONE (05:50)
[2020-08-06] MEDS: METHADONE 80 MG, METHADONE 30 MG PO SCH (06:03)
[2020-08-06] MEDS: NICOTINE 7 MG/24 HOURS TOPICAL PATCH TD SCH (09:43)
[2020-08-06] MEDS: SERTRALINE HCL 50 MG TABLET (FP) PO SCH (09:43)
[2020-08-06] MEDS: PRENATAL VITAMINS W/ FOLIC ACID TABLET (FP) PO SCH (09:43)
[2020-08-06] MEDS: ALBUTEROL SO4 HFA INHALER IH PRN (09:44)
[2020-08-06] MEDS: THIAMINE HCL 100 MG TABLET (FP) PO SCH (21:06)
[2020-08-06] MEDS: MELATONIN 5 MG TABLETS PO SCH (21:06)
[2020-08-07] MEDS ORDERED: METHADONE HCL 10 MG TABLET ONE (03:14)
[2020-08-07] MEDS ORDERED: METHADONE HCL 40 MG DISPERSABLE TABLET ONE (03:14)
[2020-08-07] MEDS: METHADONE 80 MG, METHADONE 30 MG PO SCH (05:59)
[2020-08-07] MEDS: PRENATAL VITAMINS W/ FOLIC ACID TABLET (FP) PO SCH (09:42)
[2020-08-07] MEDS: NICOTINE 7 MG/24 HOURS TOPICAL PATCH TD SCH (09:42)
[2020-08-07] MEDS: SERTRALINE HCL 50 MG TABLET (FP) PO SCH (09:42)
[2020-08-07] MEDS: ALBUTEROL SO4 HFA INHALER IH PRN ×2 (09:43→21:37)
[2020-08-07] MEDS: THIAMINE HCL 100 MG TABLET (FP) PO SCH (21:36)
[2020-08-07] MEDS: MELATONIN 5 MG TABLETS PO SCH (21:36)
[2020-08-08] MEDS ORDERED: METHADONE HCL 40 MG DISPERSABLE TABLET ONE (03:18)
[2020-08-08] MEDS ORDERED: METHADONE HCL 10 MG TABLET ONE (03:18)
[2020-08-08] MEDS: METHADONE 80 MG, METHADONE 30 MG PO SCH (06:03)
[2020-08-08] MEDS: SERTRALINE HCL 50 MG TABLET (FP) PO SCH (10:11)
[2020-08-08] MEDS: ALBUTEROL SO4 HFA INHALER IH PRN ×2 (10:11→21:08)
[2020-08-08] MEDS: NICOTINE 7 MG/24 HOURS TOPICAL PATCH TD SCH (10:11)
[2020-08-08] MEDS: PRENATAL VITAMINS W/ FOLIC ACID TABLET (FP) PO SCH (10:11)
[2020-08-08] MEDS: ACETAMINOPHEN 325 MG TABLET (FP) PO PRN (10:13)
[2020-08-08] MEDS: MELATONIN 5 MG TABLETS PO SCH (21:07)
[2020-08-08] MEDS: THIAMINE HCL 100 MG TABLET (FP) PO SCH (21:08)
[2020-08-09] MEDS ORDERED: METHADONE HCL 10 MG TABLET ONE (03:46)
[2020-08-09] MEDS ORDERED: METHADONE HCL 40 MG DISPERSABLE TABLET ONE (03:46)
[2020-08-09] MEDS: METHADONE 80 MG, METHADONE 30 MG PO SCH (06:18)
[2020-08-09] MEDS: PRENATAL VITAMINS W/ FOLIC ACID TABLET (FP) PO SCH (09:33)
[2020-08-09] MEDS: NICOTINE 7 MG/24 HOURS TOPICAL PATCH TD SCH (09:33)
[2020-08-09] MEDS: ALBUTEROL SO4 HFA INHALER IH PRN (09:33)
[2020-08-09] MEDS: SERTRALINE HCL 50 MG TABLET (FP) PO SCH (09:33)
[2020-08-09] MEDS: THIAMINE HCL 100 MG TABLET (FP) PO SCH (21:47)
[2020-08-09] MEDS: MELATONIN 5 MG TABLETS PO SCH (21:47)
[2020-08-10] MEDS ORDERED: METHADONE HCL 40 MG DISPERSABLE TABLET ONE (04:00)
[2020-08-10] MEDS ORDERED: METHADONE HCL 10 MG TABLET ONE (04:01)
[2020-08-10] MEDS: METHADONE 80 MG, METHADONE 30 MG PO SCH (05:55)
[2020-08-10] MEDS: PRENATAL VITAMINS W/ FOLIC ACID TABLET (FP) PO SCH (09:35)
[2020-08-10] MEDS: NICOTINE 7 MG/24 HOURS TOPICAL PATCH TD SCH (09:35)
[2020-08-10] MEDS: SERTRALINE HCL 50 MG TABLET (FP) PO SCH (09:35)
[2020-08-10] MEDS: ALBUTEROL SO4 HFA INHALER IH PRN (09:36)
[2020-08-10] MEDS: MELATONIN 5 MG TABLETS PO SCH (21:02)
[2020-08-10] MEDS: THIAMINE HCL 100 MG TABLET (FP) PO SCH (21:03)
[2020-08-11] MEDS ORDERED: METHADONE HCL 10 MG TABLET ONE (04:06)
[2020-08-11] MEDS ORDERED: METHADONE HCL 40 MG DISPERSABLE TABLET ONE (04:06)
[2020-08-11] MEDS: METHADONE 80 MG, METHADONE 30 MG PO SCH (06:22)
[2020-08-11] MEDS: NICOTINE 7 MG/24 HOURS TOPICAL PATCH TD SCH (09:33)
[2020-08-11] MEDS: SERTRALINE HCL 50 MG TABLET (FP) PO SCH (09:33)
[2020-08-11] MEDS: PRENATAL VITAMINS W/ FOLIC ACID TABLET (FP) PO SCH (09:33)
[2020-08-11] MEDS: MELATONIN 5 MG TABLETS PO SCH (21:43)
[2020-08-11] MEDS: THIAMINE HCL 100 MG TABLET (FP) PO SCH (21:44)
[2020-08-12] MEDS ORDERED: METHADONE HCL 40 MG DISPERSABLE TABLET ONE (05:42)
[2020-08-12] MEDS ORDERED: METHADONE HCL 10 MG TABLET ONE (05:43)
[2020-08-12] MEDS ORDERED: METHADONE HCL 40 MG DISPERSABLE TABLET PO SCH (06:00)
[2020-08-12] MEDS ORDERED: METHADONE 80 MG, METHADONE 30 MG PO SCH (06:00)
[2020-08-12] MEDS: SERTRALINE HCL 50 MG TABLET (FP) PO SCH (09:37)
[2020-08-12] MEDS: PRENATAL VITAMINS W/ FOLIC ACID TABLET (FP) PO SCH (09:37)
[2020-08-12] MEDS: ALBUTEROL SO4 HFA INHALER IH PRN (09:37)
[2020-08-12] MEDS: NICOTINE 7 MG/24 HOURS TOPICAL PATCH TD SCH (09:38)
[2020-08-12] MEDS: THIAMINE HCL 100 MG TABLET (FP) PO SCH (21:05)
[2020-08-12] MEDS: MELATONIN 5 MG TABLETS PO SCH (21:05)
[2020-08-13 06:51] VITALS: BP 126/72; PULSE 71; TEMP 97.7
[2020-08-13] MEDS ORDERED: SERTRALINE HCL 50 MG TABLET (FP) PO ONE (07:08)
== END 2020-08-13 08:20 | disposition home or self-care (01) | DRG 772 ==
LOC: YASAS 11:30 → Y3W 11:31
PROVIDERS: ADMIT Allergy & Immunology; ATTEND Allergy & Immunology
PROC: HZ42ZZZ Group Counseling for Substance Abuse Treatment, Cognitive-Behavioral (ICD-10-PCS; principal; 2020-07-28)
DX: F10.20 Alcohol dependence, uncomplicated (principal); F14.20 Cocaine dependence, uncomplicated; F11.20 Opioid dependence, uncomplicated; F19.282 Other psychoactive substance dependence with psychoactive substance-induced sleep disorder; F19.24 Other psychoactive substance dependence with psychoactive substance-induced mood disorder; F43.10 Post-traumatic stress disorder, unspecified; J45.20 Mild intermittent asthma, uncomplicated; B18.2 Chronic viral hepatitis C; R76.11 Nonspecific reaction to tuberculin skin test without active tuberculosis; Z62.810 Personal history of physical and sexual abuse in childhood; Z88.6 Allergy status to analgesic agent; Z56.0 Unemployment, unspecified; Z59.0 Homelessness
CPT/HCPCS: 36415; 86803; C9803; U0003

== ENCOUNTER 2021-01-08 12:08 | Inpatient (IN) | payer OTHER ==
[2021-01-08 13:32] VITALS: BMI 20.5
[2021-01-08] MEDS ORDERED: ACETAMINOPHEN 325 MG TABLET (FP) PO PRN ×2 (14:20)
[2021-01-08] MEDS ORDERED: MAG HYDROX/AL HYDROX/SIMETH 30 ML UNIT-DOSE CUP PO PRN (14:20)
[2021-01-08] MEDS ORDERED: METHOCARBAMOL 500 MG TABLET PO PRN (14:20)
[2021-01-08] MEDS ORDERED: MAGNESIUM HYDROX 2400MG/30ML ORAL SUSPENSION 30 ML CUP PO PRN (14:20)
[2021-01-08] MEDS ORDERED: BISMUTH SUBSALICYLATE 524 MG/30 ML PO PRN (14:20)
[2021-01-08] MEDS ORDERED: MAGNESIUM CITRATE 300 ML BOTTLE PO PRN (14:20)
[2021-01-08] MEDS ORDERED: MENTHOL/PHENOL 1 EACH UD MM PRN (14:20)
[2021-01-08] MEDS ORDERED: ONDANSETRON *ODT* 4 MG TABLET SL PRN (14:20)
[2021-01-08] MEDS ORDERED: NICOTINE POLACRILEX 2 MG GUM BUC PRN (14:20)
[2021-01-08] MEDS ORDERED: LORazepam 1 MG TABLET PO PRN (14:25)
[2021-01-08] MEDS ORDERED: ALBUTEROL SO4 HFA INHALER IH PRN (14:35)
[2021-01-08] MEDS ORDERED: LOPERAMIDE HCL 2 MG CAPSULE PO PRN (14:36)
[2021-01-08 15:47] LABS: HEMATOCRIT 42.9 % (35.4-49); HEMOGLOBIN 14.4 GM/dL (11.7-16.9); MCH 30.1 pg (25.7-33.7); MCHC 33.6 g/dl (32.0-35.9); MEAN CELL VOLUME 89.8 fl (80-96); MEAN PLT VOLUME 8.5 fl (7.5-11.1); PLATELET COUNT 258 10^3/uL (134-434); RBC 4.78 M/mm3 (4.00-5.60); RDW 13.6 % (11.9-15.9); WHITE BLOOD COUNT 5.5 K/mm3 (4.0-10.0)
[2021-01-08 15:49] LABS: ALBUMIN 3.3 g/dl (3.4-5.0); BLOOD UREA NITROGEN 17.1 mg/dL (7-18)
[2021-01-08 15:52] LABS: CREATININE 0.8 mg/dL (0.55-1.3)
[2021-01-08 15:54] LABS: BILIRUBIN,TOTAL 0.2 mg/dL (0.2-1); TOT PROT 7.3 g/dl (6.4-8.2)
[2021-01-08] MEDS: LORazepam 2 MG TABLET PO SCH ×2 (17:51→22:44)
[2021-01-08] MEDS: hydrOXYzine PAMOATE 25 MG CAPSULE (FP) PO SCH ×2 (17:51→22:44)
[2021-01-08] MEDS: NICOTINE 7 MG/24 HOURS TOPICAL PATCH TD SCH (17:52)
[2021-01-08] MEDS: PRENATAL VITAMINS W/ FOLIC ACID TABLET (FP) PO SCH (17:53)
[2021-01-08] MEDS: MELATONIN 5 MG TABLETS PO SCH (22:44)
[2021-01-08] MEDS: THIAMINE HCL 100 MG TABLET (FP) PO SCH (22:44)
[2021-01-09] MEDS ORDERED: methaDONE HCL 10 MG TABLET ONE (04:23)
[2021-01-09] MEDS ORDERED: methaDONE HCL 40 MG DISPERSABLE TABLET ONE (04:23)
[2021-01-09] MEDS: methaDONE 80 MG, methaDONE 20 MG PO SCH (05:34)
[2021-01-09] MEDS: LORazepam 2 MG TABLET PO SCH ×4 (05:34→22:35)
[2021-01-09] MEDS: hydrOXYzine PAMOATE 25 MG CAPSULE (FP) PO SCH ×2 (05:35→10:51)
[2021-01-09] MEDS ORDERED: METHADONE PO SCH (10:00)
[2021-01-09] MEDS: SERTRALINE HCL 50 MG TABLET (FP) PO SCH (10:51)
[2021-01-09] MEDS: PRENATAL VITAMINS W/ FOLIC ACID TABLET (FP) PO SCH (10:53)
[2021-01-09] MEDS: NICOTINE 7 MG/24 HOURS TOPICAL PATCH TD SCH (10:53)
[2021-01-09] MEDS ORDERED: hydrOXYzine PAMOATE 25 MG CAPSULE (FP) PO PRN (13:19)
[2021-01-09] MEDS: THIAMINE HCL 100 MG TABLET (FP) PO SCH (22:35)
[2021-01-09] MEDS: MELATONIN 5 MG TABLETS PO SCH (22:36)
[2021-01-10] MEDS ORDERED: methaDONE HCL 40 MG DISPERSABLE TABLET ONE (03:39)
[2021-01-10] MEDS ORDERED: methaDONE HCL 10 MG TABLET ONE (03:39)
[2021-01-10] MEDS: methaDONE 80 MG, methaDONE 20 MG PO SCH (06:11)
[2021-01-10] MEDS: LORazepam 1 MG TABLET PO SCH ×4 (06:12→22:24)
[2021-01-10] MEDS: SERTRALINE HCL 50 MG TABLET (FP) PO SCH (10:22)
[2021-01-10] MEDS: PRENATAL VITAMINS W/ FOLIC ACID TABLET (FP) PO SCH (10:22)
[2021-01-10] MEDS: NICOTINE 7 MG/24 HOURS TOPICAL PATCH TD SCH (10:22)
[2021-01-10] MEDS ORDERED: NICOTINE 10 MG CARTRIDGE (INHALER) IH PRN (12:08)
[2021-01-10] MEDS: THIAMINE HCL 100 MG TABLET (FP) PO SCH (22:24)
[2021-01-10] MEDS: MELATONIN 5 MG TABLETS PO SCH (22:24)
[2021-01-11] MEDS ORDERED: LORazepam 0.5 MG TABLET PO PRN
[2021-01-11] MEDS ORDERED: methaDONE HCL 40 MG DISPERSABLE TABLET ONE (04:48)
[2021-01-11] MEDS ORDERED: methaDONE HCL 10 MG TABLET ONE (04:48)
[2021-01-11] MEDS: LORazepam 0.5 MG TABLET PO SCH ×4 (06:05→22:28)
[2021-01-11] MEDS: methaDONE 80 MG, methaDONE 20 MG PO SCH (06:05)
[2021-01-11] MEDS: SERTRALINE HCL 50 MG TABLET (FP) PO SCH (10:29)
[2021-01-11] MEDS: PRENATAL VITAMINS W/ FOLIC ACID TABLET (FP) PO SCH (10:29)
[2021-01-11] MEDS: NICOTINE 7 MG/24 HOURS TOPICAL PATCH TD SCH (10:30)
[2021-01-11] MEDS: MELATONIN 5 MG TABLETS PO SCH (22:28)
[2021-01-11] MEDS: THIAMINE HCL 100 MG TABLET (FP) PO SCH (22:28)
[2021-01-12] MEDS ORDERED: methaDONE HCL 10 MG TABLET ONE (04:47)
[2021-01-12] MEDS ORDERED: methaDONE HCL 40 MG DISPERSABLE TABLET ONE (04:47)
[2021-01-12] MEDS ORDERED: LORazepam 0.5 MG TABLET PO ONE (05:00)
[2021-01-12] MEDS: methaDONE 80 MG, methaDONE 20 MG PO SCH (06:03)
[2021-01-12] MEDS: NICOTINE 7 MG/24 HOURS TOPICAL PATCH TD SCH (10:07)
[2021-01-12] MEDS: SERTRALINE HCL 50 MG TABLET (FP) PO SCH (10:09)
[2021-01-12] MEDS: PRENATAL VITAMINS W/ FOLIC ACID TABLET (FP) PO SCH (10:09)
[2021-01-12 13:22] VITALS: BP 141/69; PULSE 65; TEMP 97.3
== END 2021-01-12 13:27 | disposition other institution (70) | DRG 773 ==
LOC: YASAS 12:08 → Y3N 15:25
PROVIDERS: ADMIT Allergy & Immunology; ATTEND Allergy & Immunology
PROC: HZ2ZZZZ Detoxification Services for Substance Abuse Treatment (ICD-10-PCS; principal; 2021-01-08)
DX: F10.230 Alcohol dependence with withdrawal, uncomplicated (principal); F11.20 Opioid dependence, uncomplicated; F14.20 Cocaine dependence, uncomplicated; F17.210 Nicotine dependence, cigarettes, uncomplicated; F19.24 Other psychoactive substance dependence with psychoactive substance-induced mood disorder; J45.20 Mild intermittent asthma, uncomplicated; R00.0 Tachycardia, unspecified; R63.4 Abnormal weight loss; Z88.6 Allergy status to analgesic agent; Z91.19 Patient's noncompliance with other medical treatment and regimen; Z86.19 Personal history of other infectious and parasitic diseases; Z56.0 Unemployment, unspecified; Z59.0 Homelessness
CPT/HCPCS: 36415; 80053; 85027; 86780; C9803; U0003; U0005

== ENCOUNTER 2021-01-12 13:39 | Inpatient (IN) | payer OTHER ==
[2021-01-12] MEDS ORDERED: MAG HYDROX/AL HYDROX/SIMETH 30 ML UNIT-DOSE CUP PO PRN (15:30)
[2021-01-12] MEDS ORDERED: ACETAMINOPHEN 325 MG TABLET (FP) PO PRN (15:30)
[2021-01-12] MEDS ORDERED: IBUPROFEN 400 MG TABLET (FP) PO PRN (15:30)
[2021-01-12] MEDS ORDERED: LOPERAMIDE HCL 2 MG CAPSULE PO PRN (15:30)
[2021-01-12] MEDS ORDERED: MENTHOL/PHENOL 1 EACH UD MM PRN (15:30)
[2021-01-12] MEDS ORDERED: hydrOXYzine PAMOATE 25 MG CAPSULE (FP) PO PRN (15:30)
[2021-01-12] MEDS ORDERED: MAGNESIUM HYDROX 2400MG/30ML ORAL SUSPENSION 30 ML CUP PO PRN (15:30)
[2021-01-12] MEDS ORDERED: P-EPHED 60MG/TRIPROLIDI 2.5MG TABLET PO PRN (15:30)
[2021-01-12] MEDS ORDERED: MAGNESIUM CITRATE 300 ML BOTTLE PO PRN (15:30)
[2021-01-12] MEDS ORDERED: guaiFENesin 200 MG/10 ML 10 ML UNIT-DOSE CUPS PO PRN (15:30)
[2021-01-12] MEDS ORDERED: ALBUTEROL SO4 HFA INHALER IH PRN (15:36)
[2021-01-12] MEDS ORDERED: PNEUMOC 13-VAL CONJ-DIP CRM/PF 0.5 ML DISP.SYRIN IM ONE (15:39)
[2021-01-12] MEDS: MELATONIN 5 MG TABLETS PO SCH (21:37)
[2021-01-12] MEDS: THIAMINE HCL 100 MG TABLET (FP) PO SCH (21:37)
[2021-01-13] MEDS ORDERED: methaDONE HCL 10 MG TABLET ONE (04:15)
[2021-01-13] MEDS ORDERED: methaDONE HCL 40 MG DISPERSABLE TABLET ONE (04:15)
[2021-01-13] MEDS ORDERED: methaDONE HCL 10 MG TABLET PO SCH (06:00)
[2021-01-13] MEDS: methaDONE 80 MG, methaDONE 20 MG PO SCH (06:08)
[2021-01-13] MEDS: PRENATAL VITAMINS W/ FOLIC ACID TABLET (FP) PO SCH (09:31)
[2021-01-13] MEDS: SERTRALINE HCL 50 MG TABLET (FP) PO SCH (09:32)
[2021-01-13] MEDS ORDERED: PNEUMOCOCCAL 23 VACCINE 0.5 ML VIAL IM ONE (12:00)
[2021-01-13] MEDS ORDERED: TUBERCULIN PPD 5 TU/0.1ML VIAL ID ONE (12:17)
[2021-01-13] MEDS: THIAMINE HCL 100 MG TABLET (FP) PO SCH (21:07)
[2021-01-13] MEDS: MELATONIN 5 MG TABLETS PO SCH (21:07)
[2021-01-14] MEDS ORDERED: methaDONE HCL 10 MG TABLET ONE (03:21)
[2021-01-14] MEDS ORDERED: methaDONE HCL 40 MG DISPERSABLE TABLET ONE (03:21)
[2021-01-14] MEDS: methaDONE 80 MG, methaDONE 20 MG PO SCH (06:01)
[2021-01-14] MEDS: PRENATAL VITAMINS W/ FOLIC ACID TABLET (FP) PO SCH (10:06)
[2021-01-14] MEDS: SERTRALINE HCL 50 MG TABLET (FP) PO SCH (10:06)
[2021-01-14] MEDS: THIAMINE HCL 100 MG TABLET (FP) PO SCH (21:31)
[2021-01-14] MEDS: SUVOREXANT 10 MG TABLET PO PRN (21:31)
[2021-01-15] MEDS ORDERED: methaDONE HCL 40 MG DISPERSABLE TABLET ONE (03:18)
[2021-01-15] MEDS ORDERED: methaDONE HCL 10 MG TABLET ONE (03:18)
[2021-01-15] MEDS: methaDONE 80 MG, methaDONE 20 MG PO SCH (06:11)
[2021-01-15] MEDS: PRENATAL VITAMINS W/ FOLIC ACID TABLET (FP) PO SCH (09:36)
[2021-01-15] MEDS: SERTRALINE HCL 50 MG TABLET (FP) PO SCH (09:36)
[2021-01-15] MEDS: THIAMINE HCL 100 MG TABLET (FP) PO SCH (21:02)
[2021-01-15] MEDS: SUVOREXANT 10 MG TABLET PO PRN (21:03)
[2021-01-16] MEDS ORDERED: methaDONE HCL 10 MG TABLET ONE (03:00)
[2021-01-16] MEDS ORDERED: methaDONE HCL 40 MG DISPERSABLE TABLET ONE (03:00)
[2021-01-16] MEDS: methaDONE 80 MG, methaDONE 20 MG PO SCH (06:01)
[2021-01-16] MEDS: PRENATAL VITAMINS W/ FOLIC ACID TABLET (FP) PO SCH (10:11)
[2021-01-16] MEDS: SERTRALINE HCL 50 MG TABLET (FP) PO SCH (10:11)
[2021-01-16] MEDS: SUVOREXANT 10 MG TABLET PO PRN (21:35)
[2021-01-16] MEDS: THIAMINE HCL 100 MG TABLET (FP) PO SCH (21:35)
[2021-01-17] MEDS ORDERED: methaDONE HCL 10 MG TABLET ONE (03:11)
[2021-01-17] MEDS ORDERED: methaDONE HCL 40 MG DISPERSABLE TABLET ONE (03:11)
[2021-01-17] MEDS: methaDONE 80 MG, methaDONE 20 MG PO SCH (05:57)
[2021-01-17] MEDS: PRENATAL VITAMINS W/ FOLIC ACID TABLET (FP) PO SCH (09:40)
[2021-01-17] MEDS: SERTRALINE HCL 50 MG TABLET (FP) PO SCH (09:40)
[2021-01-17] MEDS: THIAMINE HCL 100 MG TABLET (FP) PO SCH (21:35)
[2021-01-17] MEDS: SUVOREXANT 10 MG TABLET PO PRN (21:36)
[2021-01-18] MEDS ORDERED: methaDONE HCL 40 MG DISPERSABLE TABLET ONE (03:12)
[2021-01-18] MEDS ORDERED: methaDONE HCL 10 MG TABLET ONE (03:12)
[2021-01-18] MEDS: methaDONE 80 MG, methaDONE 20 MG PO SCH (06:01)
[2021-01-18] MEDS: SERTRALINE HCL 50 MG TABLET (FP) PO SCH (10:24)
[2021-01-18] MEDS: PRENATAL VITAMINS W/ FOLIC ACID TABLET (FP) PO SCH (10:24)
[2021-01-18] MEDS: THIAMINE HCL 100 MG TABLET (FP) PO SCH (21:31)
[2021-01-18] MEDS: SUVOREXANT 10 MG TABLET PO PRN (21:32)
[2021-01-19] MEDS ORDERED: methaDONE HCL 40 MG DISPERSABLE TABLET ONE (02:59)
[2021-01-19] MEDS ORDERED: methaDONE HCL 10 MG TABLET ONE (03:00)
[2021-01-19] MEDS: methaDONE 80 MG, methaDONE 20 MG PO SCH (06:13)
[2021-01-19] MEDS: PRENATAL VITAMINS W/ FOLIC ACID TABLET (FP) PO SCH (09:44)
[2021-01-19] MEDS: SERTRALINE HCL 50 MG TABLET (FP) PO SCH (09:44)
[2021-01-19] MEDS: THIAMINE HCL 100 MG TABLET (FP) PO SCH (21:03)
[2021-01-19] MEDS: SUVOREXANT 10 MG TABLET PO PRN (21:03)
[2021-01-20] MEDS ORDERED: methaDONE 80 MG, methaDONE 20 MG PO SCH (06:00)
[2021-01-20] MEDS ORDERED: methaDONE HCL 40 MG DISPERSABLE TABLET ONE (06:06)
[2021-01-20] MEDS ORDERED: methaDONE HCL 10 MG TABLET ONE (06:06)
[2021-01-20 07:36] VITALS: TEMP 96.9
[2021-01-20 10:27] VITALS: BP 110/71; PULSE 70
[2021-01-20] MEDS: SERTRALINE HCL 50 MG TABLET (FP) PO SCH (10:28)
[2021-01-20] MEDS: PRENATAL VITAMINS W/ FOLIC ACID TABLET (FP) PO SCH (10:28)
== END 2021-01-20 14:30 | disposition home or self-care (01) | DRG 772 ==
LOC: YASAS 13:39 → Y3W 13:40
PROVIDERS: ADMIT Allergy & Immunology; ATTEND Allergy & Immunology
PROC: HZ42ZZZ Group Counseling for Substance Abuse Treatment, Cognitive-Behavioral (ICD-10-PCS; principal; 2021-01-12)
DX: F10.20 Alcohol dependence, uncomplicated (principal); F11.20 Opioid dependence, uncomplicated; F14.20 Cocaine dependence, uncomplicated; F17.210 Nicotine dependence, cigarettes, uncomplicated; J45.20 Mild intermittent asthma, uncomplicated; Z88.6 Allergy status to analgesic agent; Z56.0 Unemployment, unspecified; Z59.0 Homelessness
CPT/HCPCS: 90732; G0009

== ENCOUNTER 2021-02-20 13:23 | Inpatient (IN) | payer OTHER ==
[2021-02-20 14:11] VITALS: BMI 21.1
[2021-02-20] MEDS ORDERED: MAGNESIUM HYDROX 2400MG/30ML ORAL SUSPENSION 30 ML CUP PO PRN (14:40)
[2021-02-20] MEDS ORDERED: NICOTINE POLACRILEX 2 MG GUM BUC PRN (14:40)
[2021-02-20] MEDS ORDERED: MAGNESIUM CITRATE 300 ML BOTTLE PO PRN (14:40)
[2021-02-20] MEDS ORDERED: ACETAMINOPHEN 325 MG TABLET (FP) PO PRN (14:40)
[2021-02-20] MEDS ORDERED: MAG HYDROX/AL HYDROX/SIMETH 30 ML UNIT-DOSE CUP PO PRN (14:40)
[2021-02-20] MEDS ORDERED: hydrOXYzine PAMOATE 25 MG CAPSULE (FP) PO PRN (14:40)
[2021-02-20] MEDS ORDERED: MENTHOL/PHENOL 1 EACH UD MM PRN (14:40)
[2021-02-20] MEDS ORDERED: diazePAM 5 MG TABLET PO PRN (14:40)
[2021-02-20] MEDS ORDERED: NICOTINE 10 MG CARTRIDGE (INHALER) IH PRN (14:40)
[2021-02-20] MEDS: diazePAM 5 MG TABLET PO SCH ×2 (18:48→22:17)
[2021-02-20] MEDS: ACETAMINOPHEN 325 MG TABLET (FP) PO PRN (18:49)
[2021-02-20] MEDS: THIAMINE HCL 100 MG TABLET (FP) PO SCH (22:17)
[2021-02-20] MEDS: MELATONIN 5 MG TABLETS PO SCH (22:17)
[2021-02-20] MEDS: METHOCARBAMOL 500 MG TABLET PO PRN (22:18)
[2021-02-21] MEDS: ACETAMINOPHEN 325 MG TABLET (FP) PO PRN (05:27)
[2021-02-21] MEDS: diazePAM 5 MG TABLET PO SCH ×4 (05:27→22:26)
[2021-02-21] MEDS ORDERED: ALBUTEROL SO4 HFA INHALER IH PRN (08:05)
[2021-02-21] MEDS ORDERED: methaDONE HCL 10 MG TABLET PO SCH (09:00)
[2021-02-21] MEDS ORDERED: methaDONE 80 MG, methaDONE 20 MG PO ONE (09:15)
[2021-02-21] MEDS ORDERED: methaDONE HCL 10 MG TABLET ONE (10:09)
[2021-02-21] MEDS ORDERED: methaDONE HCL 40 MG DISPERSABLE TABLET ONE (10:10)
[2021-02-21] MEDS: NICOTINE 14 MG/24 HOURS TOPICAL PATCH TD SCH (10:37)
[2021-02-21] MEDS: PRENATAL VITAMINS W/ FOLIC ACID TABLET (FP) PO SCH (10:37)
[2021-02-21] MEDS: ONDANSETRON *ODT* 4 MG TABLET SL PRN (10:44)
[2021-02-21] MEDS: METHOCARBAMOL 500 MG TABLET PO PRN ×2 (10:44→22:28)
[2021-02-21 11:17] LABS: HEMATOCRIT 37.3 % (35.4-49); HEMOGLOBIN 12.8 GM/dL (11.7-16.9); MCH 30.4 pg (25.7-33.7); MCHC 34.4 g/dl (32.0-35.9); MEAN CELL VOLUME 88.5 fl (80-96); MEAN PLT VOLUME 9.8 fl (7.5-11.1); PLATELET COUNT 262 10^3/uL (134-434); RBC 4.21 M/mm3 (4.00-5.60); RDW 14.7 % (11.9-15.9); WHITE BLOOD COUNT 8.3 K/mm3 (4.0-10.0)
[2021-02-21 11:40] LABS: ALBUMIN 3.4 g/dl (3.4-5.0); CALCIUM 8.6 mg/dL (8.5-10.1)
[2021-02-21 11:41] LABS: BLOOD UREA NITROGEN 14.2 mg/dL (7-18)
[2021-02-21 11:44] LABS: CREATININE 0.9 mg/dL (0.55-1.3)
[2021-02-21 11:45] LABS: BILIRUBIN,TOTAL 0.9 mg/dL (0.2-1); TOT PROT 7.4 g/dl (6.4-8.2)
[2021-02-21] MEDS: IBUPROFEN 600 MG TABLET (FP) PO PRN (17:18)
[2021-02-21] MEDS: MELATONIN 5 MG TABLETS PO SCH (22:26)
[2021-02-21] MEDS: THIAMINE HCL 100 MG TABLET (FP) PO SCH (22:26)
[2021-02-22] MEDS ORDERED: methaDONE HCL 10 MG TABLET ONE (04:10)
[2021-02-22] MEDS ORDERED: methaDONE HCL 40 MG DISPERSABLE TABLET ONE (04:10)
[2021-02-22] MEDS: IBUPROFEN 600 MG TABLET (FP) PO PRN ×2 (04:25→10:18)
[2021-02-22] MEDS: methaDONE 80 MG, methaDONE 20 MG PO SCH (05:42)
[2021-02-22] MEDS: diazePAM 5 MG TABLET PO SCH ×3 (05:42→22:15)
[2021-02-22] MEDS: PRENATAL VITAMINS W/ FOLIC ACID TABLET (FP) PO SCH (10:17)
[2021-02-22] MEDS: NICOTINE 14 MG/24 HOURS TOPICAL PATCH TD SCH (10:17)
[2021-02-22] MEDS: ONDANSETRON *ODT* 4 MG TABLET SL PRN (10:22)
[2021-02-22] MEDS: METHOCARBAMOL 500 MG TABLET PO PRN (14:25)
[2021-02-22] MEDS: MELATONIN 5 MG TABLETS PO SCH (23:28)
[2021-02-22] MEDS: THIAMINE HCL 100 MG TABLET (FP) PO SCH (23:28)
[2021-02-23] MEDS ORDERED: methaDONE HCL 40 MG DISPERSABLE TABLET ONE (04:37)
[2021-02-23] MEDS ORDERED: methaDONE HCL 10 MG TABLET ONE (04:37)
[2021-02-23] MEDS: diazePAM 5 MG TABLET PO SCH ×2 (05:28→18:12)
[2021-02-23] MEDS: methaDONE 80 MG, methaDONE 20 MG PO SCH (05:28)
[2021-02-23] MEDS: IBUPROFEN 600 MG TABLET (FP) PO PRN ×2 (05:32→18:15)
[2021-02-23] MEDS: NICOTINE 14 MG/24 HOURS TOPICAL PATCH TD SCH (10:18)
[2021-02-23] MEDS: PRENATAL VITAMINS W/ FOLIC ACID TABLET (FP) PO SCH (10:20)
[2021-02-23] MEDS: MELATONIN 5 MG TABLETS PO SCH (22:28)
[2021-02-23] MEDS: THIAMINE HCL 100 MG TABLET (FP) PO SCH (22:28)
[2021-02-23] MEDS: ACETAMINOPHEN 325 MG TABLET (FP) PO PRN (22:30)
[2021-02-24] MEDS ORDERED: methaDONE HCL 10 MG TABLET ONE (04:50)
[2021-02-24] MEDS ORDERED: methaDONE HCL 40 MG DISPERSABLE TABLET ONE (04:51)
[2021-02-24] MEDS: methaDONE 80 MG, methaDONE 20 MG PO SCH (05:28)
[2021-02-24] MEDS: IBUPROFEN 600 MG TABLET (FP) PO PRN (05:32)
[2021-02-24] MEDS ORDERED: diazePAM 5 MG TABLET PO ONE (06:00)
[2021-02-24] MEDS: NICOTINE 14 MG/24 HOURS TOPICAL PATCH TD SCH (10:40)
[2021-02-24] MEDS: PRENATAL VITAMINS W/ FOLIC ACID TABLET (FP) PO SCH (10:40)
[2021-02-24] MEDS ORDERED: MODERNA COVID-19 VACC,MRNA/PF 100 MCG/0.5 ML IM ONE (12:00)
[2021-02-24 15:29] VITALS: BP 125/72; PULSE 62; TEMP 97.9
[2021-02-24 16:21] LABS: CHLORIDE 106 mmol/L (98-107); SODIUM 140 mmol/L (136-145)
[2021-02-24 16:23] LABS: ANION GAP 4 MMOL/L (8-16); BLOOD UREA NITROGEN 17.8 mg/dL (7-18); CALCIUM 8.8 mg/dL (8.5-10.1); CO2 30 mmol/L (21-32); GLUCOSE,RANDOM 92 mg/dL (74-106)
[2021-02-24 16:26] LABS: CREATININE 0.6 mg/dL (0.55-1.3); SGOT/AST 17 U/L (15-37)
[2021-02-24 16:28] LABS: BILIRUBIN,TOTAL < 0.1 mg/dL (0.2-1)
[2021-02-24 16:38] LABS: SGPT/ALT 21 U/L (13-61)
[2021-02-24 16:39] LABS: ALBUMIN 2.6 g/dl (3.4-5.0); ALK PHOS 108 U/L (45-117)
[2021-02-24] MEDS: MELATONIN 5 MG TABLETS PO SCH (23:19)
[2021-02-24] MEDS: THIAMINE HCL 100 MG TABLET (FP) PO SCH (23:19)
== END 2021-02-25 01:13 | disposition other institution (70) | DRG 773 ==
LOC: YASAS 13:23 → Y3N 16:07
PROVIDERS: ADMIT Allergy & Immunology; ATTEND Allergy & Immunology
PROC: HZ2ZZZZ Detoxification Services for Substance Abuse Treatment (ICD-10-PCS; principal; 2021-02-20)
DX: F10.230 Alcohol dependence with withdrawal, uncomplicated (principal); F11.20 Opioid dependence, uncomplicated; F14.20 Cocaine dependence, uncomplicated; F13.20 Sedative, hypnotic or anxiolytic dependence, uncomplicated; F17.210 Nicotine dependence, cigarettes, uncomplicated; F19.282 Other psychoactive substance dependence with psychoactive substance-induced sleep disorder; F19.24 Other psychoactive substance dependence with psychoactive substance-induced mood disorder; F31.9 Bipolar disorder, unspecified; F41.9 Anxiety disorder, unspecified; J45.20 Mild intermittent asthma, uncomplicated; R76.11 Nonspecific reaction to tuberculin skin test without active tuberculosis; R63.4 Abnormal weight loss; Z68.21 Body mass index [BMI] 21.0-21.9, adult; Z86.19 Personal history of other infectious and parasitic diseases; S62.315A Displaced fracture of base of fourth metacarpal bone, left hand, initial encounter for closed fracture; S62.317A Displaced fracture of base of fifth metacarpal bone, left hand, initial encounter for closed fracture; S22.42XA Multiple fractures of ribs, left side, initial encounter for closed fracture; W19.XXXA Unspecified fall, initial encounter; Y92.9 Unspecified place or not applicable
CPT/HCPCS: 0011A; 36415; 71046-TC-FY; 71101-TC-LT-FY; 73110-TC-LT-FY; 73130-TC-LT-FY; 80053; 85027; 86780; 91301; C9803; Q0162; U0003; U0005

== ENCOUNTER 2021-02-24 17:59 | Inpatient (IN) | payer OTHER ==
[2021-02-25] MEDS ORDERED: NICOTINE 10 MG CARTRIDGE (INHALER) IH PRN (14:03)
[2021-02-25] MEDS ORDERED: P-EPHED 60MG/TRIPROLIDI 2.5MG TABLET PO PRN (14:03)
[2021-02-25] MEDS ORDERED: guaiFENesin 200 MG/10 ML 10 ML UNIT-DOSE CUPS PO PRN (14:03)
[2021-02-25] MEDS ORDERED: MAGNESIUM HYDROX 2400MG/30ML ORAL SUSPENSION 30 ML CUP PO PRN (14:03)
[2021-02-25] MEDS ORDERED: ACETAMINOPHEN 325 MG TABLET (FP) PO PRN (14:03)
[2021-02-25] MEDS ORDERED: MAGNESIUM CITRATE 300 ML BOTTLE PO PRN (14:03)
[2021-02-25] MEDS ORDERED: LOPERAMIDE HCL 2 MG CAPSULE PO PRN (14:03)
[2021-02-25] MEDS ORDERED: MAG HYDROX/AL HYDROX/SIMETH 30 ML UNIT-DOSE CUP PO PRN (14:03)
[2021-02-25] MEDS ORDERED: IBUPROFEN 400 MG TABLET (FP) PO PRN (14:03)
[2021-02-25] MEDS ORDERED: ALBUTEROL SO4 HFA INHALER IH PRN (14:05)
[2021-02-25] MEDS ORDERED: methaDONE HCL 10 MG TABLET PO ONE (14:15)
[2021-02-25] MEDS ORDERED: methaDONE 80 MG, methaDONE 20 MG PO ONE (14:30)
[2021-02-25] MEDS ORDERED: methaDONE HCL 40 MG DISPERSABLE TABLET ONE (14:32)
[2021-02-25] MEDS ORDERED: methaDONE HCL 10 MG TABLET ONE (14:32)
[2021-02-25] MEDS: PRENATAL VITAMINS W/ FOLIC ACID TABLET (FP) PO SCH (14:39)
[2021-02-25] MEDS: NICOTINE 7 MG/24 HOURS TOPICAL PATCH TD SCH (14:39)
[2021-02-25] MEDS: IBUPROFEN 600 MG TABLET (FP) PO PRN (14:39)
[2021-02-25] MEDS: hydrOXYzine PAMOATE 25 MG CAPSULE (FP) PO SCH ×2 (17:46→22:07)
[2021-02-25] MEDS ORDERED: MELATONIN 5 MG TABLETS PO SCH (22:00)
[2021-02-25] MEDS: THIAMINE HCL 100 MG TABLET (FP) PO SCH (22:07)
[2021-02-26] MEDS ORDERED: methaDONE HCL 10 MG TABLET ONE (06:09)
[2021-02-26] MEDS ORDERED: methaDONE HCL 40 MG DISPERSABLE TABLET ONE (06:09)
[2021-02-26] MEDS: methaDONE 80 MG, methaDONE 20 MG PO SCH (06:09)
[2021-02-26] MEDS: IBUPROFEN 600 MG TABLET (FP) PO PRN ×2 (06:11→21:43)
[2021-02-26] MEDS: hydrOXYzine PAMOATE 25 MG CAPSULE (FP) PO SCH ×5 (06:18→21:26)
[2021-02-26] MEDS ORDERED: methaDONE HCL 40 MG DISPERSABLE TABLET PO SCH (10:00)
[2021-02-26] MEDS: NICOTINE 7 MG/24 HOURS TOPICAL PATCH TD SCH (11:25)
[2021-02-26] MEDS: PRENATAL VITAMINS W/ FOLIC ACID TABLET (FP) PO SCH (11:25)
[2021-02-26] MEDS ORDERED: MELATONIN 5 MG TABLETS PO PRN (12:48)
[2021-02-26 12:53] LABS: CALCIUM 8.7 mg/dL (8.5-10.1)
[2021-02-26 12:56] LABS: BILIRUBIN,TOTAL 0.2 mg/dL (0.2-1)
[2021-02-26 12:57] LABS: CREATININE 0.7 mg/dL (0.55-1.3); TOT PROT 7.3 g/dl (6.4-8.2)
[2021-02-26 12:58] LABS: ALBUMIN 3.2 g/dl (3.4-5.0)
[2021-02-26 13:10] LABS: SYPHILIS W/ RPR CONF NON-REACTIVE (NONREACTIVE)
[2021-02-26 13:47] LABS: HIV INTERPRETATION NEGATIVE (NEGATIVE)
[2021-02-26] MEDS: THIAMINE HCL 100 MG TABLET (FP) PO SCH (21:26)
[2021-02-26] MEDS: MIRTAZAPINE 15 MG TABLET (FP) PO SCH (21:26)
[2021-02-26] MEDS ORDERED: MIRTAZAPINE 15 MG TABLET (FP) PO SCH (22:00)
[2021-02-27] MEDS ORDERED: methaDONE HCL 40 MG DISPERSABLE TABLET ONE (05:44)
[2021-02-27] MEDS ORDERED: methaDONE HCL 10 MG TABLET ONE (05:44)
[2021-02-27] MEDS: hydrOXYzine PAMOATE 25 MG CAPSULE (FP) PO SCH ×5 (06:23→22:03)
[2021-02-27] MEDS: methaDONE 80 MG, methaDONE 20 MG PO SCH (06:23)
[2021-02-27] MEDS: PRENATAL VITAMINS W/ FOLIC ACID TABLET (FP) PO SCH (11:15)
[2021-02-27] MEDS: NICOTINE 7 MG/24 HOURS TOPICAL PATCH TD SCH (11:15)
[2021-02-27 15:14] LABS: URINE APPEARANCE CLEAR; URINE BILIRUBIN NEGATIVE (NEGATIVE); URINE COLOR YELLOW; URINE GLUCOSE (UA) NEGATIVE (NEGATIVE); URINE KETONE NEGATIVE (NEGATIVE); URINE LEUK ESTERASE NEGATIVE (NEGATIVE); URINE NITRITE NEGATIVE (NEGATIVE); URINE PROTEIN NEGATIVE (NEGATIVE); URINE UROBILINOGEN 0.2 mg/dL (0.2-1.0)
[2021-02-27] MEDS: MIRTAZAPINE 15 MG TABLET (FP) PO SCH (22:03)
[2021-02-27] MEDS: THIAMINE HCL 100 MG TABLET (FP) PO SCH (22:03)
[2021-02-28] MEDS ORDERED: methaDONE HCL 10 MG TABLET ONE (03:25)
[2021-02-28] MEDS ORDERED: methaDONE HCL 40 MG DISPERSABLE TABLET ONE (03:25)
[2021-02-28] MEDS: methaDONE 80 MG, methaDONE 20 MG PO SCH (06:05)
[2021-02-28] MEDS: hydrOXYzine PAMOATE 25 MG CAPSULE (FP) PO SCH ×5 (06:06→21:49)
[2021-02-28] MEDS: NICOTINE 7 MG/24 HOURS TOPICAL PATCH TD SCH (09:34)
[2021-02-28] MEDS: PRENATAL VITAMINS W/ FOLIC ACID TABLET (FP) PO SCH (09:34)
[2021-02-28] MEDS: THIAMINE HCL 100 MG TABLET (FP) PO SCH (21:49)
[2021-02-28] MEDS: MIRTAZAPINE 15 MG TABLET (FP) PO SCH (21:49)
[2021-03-01] MEDS ORDERED: methaDONE HCL 10 MG TABLET ONE (03:04)
[2021-03-01] MEDS ORDERED: methaDONE HCL 40 MG DISPERSABLE TABLET ONE (03:04)
[2021-03-01] MEDS: hydrOXYzine PAMOATE 25 MG CAPSULE (FP) PO SCH ×5 (06:08→21:09)
[2021-03-01] MEDS: methaDONE 80 MG, methaDONE 20 MG PO SCH (06:09)
[2021-03-01] MEDS: PRENATAL VITAMINS W/ FOLIC ACID TABLET (FP) PO SCH (09:15)
[2021-03-01] MEDS: NICOTINE 7 MG/24 HOURS TOPICAL PATCH TD SCH (09:15)
[2021-03-01] MEDS: THIAMINE HCL 100 MG TABLET (FP) PO SCH (21:09)
[2021-03-01] MEDS: MIRTAZAPINE 15 MG TABLET (FP) PO SCH (21:09)
[2021-03-01] MEDS: IBUPROFEN 600 MG TABLET (FP) PO PRN (21:10)
[2021-03-02] MEDS ORDERED: methaDONE HCL 40 MG DISPERSABLE TABLET ONE (03:06)
[2021-03-02] MEDS ORDERED: methaDONE HCL 10 MG TABLET ONE (03:06)
[2021-03-02] MEDS: methaDONE 80 MG, methaDONE 20 MG PO SCH (06:13)
[2021-03-02] MEDS: hydrOXYzine PAMOATE 25 MG CAPSULE (FP) PO SCH ×5 (06:13→22:01)
[2021-03-02] MEDS: PRENATAL VITAMINS W/ FOLIC ACID TABLET (FP) PO SCH (10:10)
[2021-03-02] MEDS: NICOTINE 7 MG/24 HOURS TOPICAL PATCH TD SCH (10:10)
[2021-03-02] MEDS: THIAMINE HCL 100 MG TABLET (FP) PO SCH (22:00)
[2021-03-02] MEDS: MIRTAZAPINE 15 MG TABLET (FP) PO SCH (22:01)
[2021-03-02] MEDS: IBUPROFEN 600 MG TABLET (FP) PO PRN (22:02)
[2021-03-03] MEDS ORDERED: methaDONE HCL 10 MG TABLET ONE (03:20)
[2021-03-03] MEDS ORDERED: methaDONE HCL 40 MG DISPERSABLE TABLET ONE (03:20)
[2021-03-03] MEDS: methaDONE 80 MG, methaDONE 20 MG PO SCH (06:06)
[2021-03-03] MEDS: hydrOXYzine PAMOATE 25 MG CAPSULE (FP) PO SCH ×5 (06:07→22:19)
[2021-03-03] MEDS: PRENATAL VITAMINS W/ FOLIC ACID TABLET (FP) PO SCH (10:30)
[2021-03-03] MEDS: NICOTINE 7 MG/24 HOURS TOPICAL PATCH TD SCH (10:31)
[2021-03-03] MEDS: IBUPROFEN 600 MG TABLET (FP) PO PRN (22:18)
[2021-03-03] MEDS: MIRTAZAPINE 15 MG TABLET (FP) PO SCH (22:19)
[2021-03-03] MEDS: THIAMINE HCL 100 MG TABLET (FP) PO SCH (22:19)
[2021-03-04] MEDS ORDERED: methaDONE HCL 40 MG DISPERSABLE TABLET ONE (03:13)
[2021-03-04] MEDS ORDERED: methaDONE HCL 10 MG TABLET ONE (03:13)
[2021-03-04] MEDS: methaDONE 80 MG, methaDONE 20 MG PO SCH (06:36)
[2021-03-04] MEDS: hydrOXYzine PAMOATE 25 MG CAPSULE (FP) PO SCH ×5 (06:37→21:05)
[2021-03-04] MEDS: NICOTINE 7 MG/24 HOURS TOPICAL PATCH TD SCH (10:37)
[2021-03-04] MEDS: PRENATAL VITAMINS W/ FOLIC ACID TABLET (FP) PO SCH (10:37)
[2021-03-04] MEDS: IBUPROFEN 600 MG TABLET (FP) PO PRN (10:39)
[2021-03-04] MEDS: METHOCARBAMOL 500 MG TABLET PO PRN ×2 (15:40→21:05)
[2021-03-04] MEDS: MIRTAZAPINE 15 MG TABLET (FP) PO SCH (21:05)
[2021-03-04] MEDS: THIAMINE HCL 100 MG TABLET (FP) PO SCH (21:05)
[2021-03-05] MEDS ORDERED: methaDONE HCL 10 MG TABLET ONE (05:10)
[2021-03-05] MEDS ORDERED: methaDONE HCL 40 MG DISPERSABLE TABLET ONE (05:11)
[2021-03-05] MEDS: methaDONE 80 MG, methaDONE 20 MG PO SCH (06:07)
[2021-03-05] MEDS: hydrOXYzine PAMOATE 25 MG CAPSULE (FP) PO SCH ×5 (06:07→21:43)
[2021-03-05] MEDS: NICOTINE 7 MG/24 HOURS TOPICAL PATCH TD SCH (10:37)
[2021-03-05] MEDS: PRENATAL VITAMINS W/ FOLIC ACID TABLET (FP) PO SCH (10:37)
[2021-03-05] MEDS: METHOCARBAMOL 500 MG TABLET PO PRN ×2 (11:19→21:42)
[2021-03-05] MEDS: IBUPROFEN 600 MG TABLET (FP) PO PRN (11:19)
[2021-03-05] MEDS: THIAMINE HCL 100 MG TABLET (FP) PO SCH (21:42)
[2021-03-05] MEDS: MIRTAZAPINE 15 MG TABLET (FP) PO SCH (21:42)
[2021-03-06] MEDS ORDERED: methaDONE HCL 10 MG TABLET ONE (03:10)
[2021-03-06] MEDS ORDERED: methaDONE HCL 40 MG DISPERSABLE TABLET ONE (03:10)
[2021-03-06] MEDS: hydrOXYzine PAMOATE 25 MG CAPSULE (FP) PO SCH ×5 (06:18→21:00)
[2021-03-06] MEDS: methaDONE 80 MG, methaDONE 20 MG PO SCH (06:18)
[2021-03-06] MEDS: PRENATAL VITAMINS W/ FOLIC ACID TABLET (FP) PO SCH (10:54)
[2021-03-06] MEDS: NICOTINE 7 MG/24 HOURS TOPICAL PATCH TD SCH (10:55)
[2021-03-06] MEDS: MIRTAZAPINE 15 MG TABLET (FP) PO SCH (21:00)
[2021-03-06] MEDS: THIAMINE HCL 100 MG TABLET (FP) PO SCH (21:00)
[2021-03-07] MEDS ORDERED: methaDONE HCL 10 MG TABLET ONE (05:12)
[2021-03-07] MEDS ORDERED: methaDONE HCL 40 MG DISPERSABLE TABLET ONE (05:13)
[2021-03-07] MEDS: hydrOXYzine PAMOATE 25 MG CAPSULE (FP) PO SCH ×5 (06:01→22:03)
[2021-03-07] MEDS: methaDONE 80 MG, methaDONE 20 MG PO SCH (06:02)
[2021-03-07] MEDS ORDERED: MASKS NR ONE (08:04)
[2021-03-07] MEDS: PRENATAL VITAMINS W/ FOLIC ACID TABLET (FP) PO SCH (10:55)
[2021-03-07] MEDS: NICOTINE 7 MG/24 HOURS TOPICAL PATCH TD SCH (10:55)
[2021-03-07] MEDS: METHOCARBAMOL 500 MG TABLET PO PRN ×2 (13:15→22:04)
[2021-03-07] MEDS: IBUPROFEN 600 MG TABLET (FP) PO PRN (13:15)
[2021-03-07] MEDS: MIRTAZAPINE 15 MG TABLET (FP) PO SCH (22:02)
[2021-03-07] MEDS: THIAMINE HCL 100 MG TABLET (FP) PO SCH (22:02)
[2021-03-08] MEDS ORDERED: methaDONE HCL 10 MG TABLET ONE (04:10)
[2021-03-08] MEDS ORDERED: methaDONE HCL 40 MG DISPERSABLE TABLET ONE (04:11)
[2021-03-08] MEDS: hydrOXYzine PAMOATE 25 MG CAPSULE (FP) PO SCH ×5 (06:03→22:16)
[2021-03-08] MEDS: methaDONE 80 MG, methaDONE 20 MG PO SCH (06:03)
[2021-03-08] MEDS: PRENATAL VITAMINS W/ FOLIC ACID TABLET (FP) PO SCH (10:59)
[2021-03-08] MEDS: NICOTINE 7 MG/24 HOURS TOPICAL PATCH TD SCH (11:00)
[2021-03-08] MEDS: MIRTAZAPINE 15 MG TABLET (FP) PO SCH (22:15)
[2021-03-08] MEDS: MELATONIN 5 MG TABLETS PO PRN (22:16)
[2021-03-08] MEDS: THIAMINE HCL 100 MG TABLET (FP) PO SCH (22:16)
[2021-03-08] MEDS: METHOCARBAMOL 500 MG TABLET PO PRN (22:17)
[2021-03-09] MEDS ORDERED: methaDONE HCL 10 MG TABLET ONE (03:54)
[2021-03-09] MEDS ORDERED: methaDONE HCL 40 MG DISPERSABLE TABLET ONE (03:55)
[2021-03-09] MEDS: methaDONE 80 MG, methaDONE 20 MG PO SCH (06:22)
[2021-03-09] MEDS: hydrOXYzine PAMOATE 25 MG CAPSULE (FP) PO SCH ×5 (06:22→21:41)
[2021-03-09] MEDS: NICOTINE 7 MG/24 HOURS TOPICAL PATCH TD SCH (10:50)
[2021-03-09] MEDS: PRENATAL VITAMINS W/ FOLIC ACID TABLET (FP) PO SCH (10:50)
[2021-03-09] MEDS: METHOCARBAMOL 500 MG TABLET PO PRN ×2 (10:50→21:43)
[2021-03-09] MEDS: THIAMINE HCL 100 MG TABLET (FP) PO SCH (21:41)
[2021-03-09] MEDS: MIRTAZAPINE 15 MG TABLET (FP) PO SCH (21:41)
[2021-03-09] MEDS: MELATONIN 5 MG TABLETS PO PRN (21:42)
[2021-03-10] MEDS ORDERED: methaDONE HCL 40 MG DISPERSABLE TABLET ONE (03:22)
[2021-03-10] MEDS ORDERED: methaDONE HCL 10 MG TABLET ONE (03:22)
[2021-03-10] MEDS: methaDONE 80 MG, methaDONE 20 MG PO SCH (06:38)
[2021-03-10] MEDS: hydrOXYzine PAMOATE 25 MG CAPSULE (FP) PO SCH ×5 (06:38→21:09)
[2021-03-10] MEDS: NICOTINE 7 MG/24 HOURS TOPICAL PATCH TD SCH (11:03)
[2021-03-10] MEDS: PRENATAL VITAMINS W/ FOLIC ACID TABLET (FP) PO SCH (11:03)
[2021-03-10] MEDS: METHOCARBAMOL 500 MG TABLET PO PRN (17:38)
[2021-03-10] MEDS: MIRTAZAPINE 15 MG TABLET (FP) PO SCH (21:09)
[2021-03-10] MEDS: IBUPROFEN 600 MG TABLET (FP) PO PRN (21:09)
[2021-03-10] MEDS: THIAMINE HCL 100 MG TABLET (FP) PO SCH (21:09)
[2021-03-11] MEDS ORDERED: methaDONE HCL 10 MG TABLET ONE (02:50)
[2021-03-11] MEDS ORDERED: methaDONE HCL 40 MG DISPERSABLE TABLET ONE (02:51)
[2021-03-11] MEDS: methaDONE 80 MG, methaDONE 20 MG PO SCH (06:10)
[2021-03-11] MEDS: hydrOXYzine PAMOATE 25 MG CAPSULE (FP) PO SCH ×2 (06:11→09:35)
[2021-03-11 07:09] VITALS: BP 95/62; PULSE 69; TEMP 97.9
[2021-03-11] MEDS: PRENATAL VITAMINS W/ FOLIC ACID TABLET (FP) PO SCH (09:34)
[2021-03-11] MEDS: NICOTINE 7 MG/24 HOURS TOPICAL PATCH TD SCH (09:34)
== END 2021-03-11 09:55 | disposition home or self-care (01) | DRG 772 ==
LOC: YASAS 17:59 → Y5N 18:00 → UNDOADMIN 18:00 → Y5N 23:01
PROVIDERS: ADMIT Allergy & Immunology; ATTEND Allergy & Immunology
PROC: HZ42ZZZ Group Counseling for Substance Abuse Treatment, Cognitive-Behavioral (ICD-10-PCS; principal; 2021-02-25)
DX: F10.20 Alcohol dependence, uncomplicated (principal); F11.20 Opioid dependence, uncomplicated; F14.20 Cocaine dependence, uncomplicated; F13.20 Sedative, hypnotic or anxiolytic dependence, uncomplicated; F17.210 Nicotine dependence, cigarettes, uncomplicated; F19.282 Other psychoactive substance dependence with psychoactive substance-induced sleep disorder; F19.280 Other psychoactive substance dependence with psychoactive substance-induced anxiety disorder; F19.24 Other psychoactive substance dependence with psychoactive substance-induced mood disorder; F31.9 Bipolar disorder, unspecified; F41.9 Anxiety disorder, unspecified; G47.00 Insomnia, unspecified; J45.20 Mild intermittent asthma, uncomplicated; R76.11 Nonspecific reaction to tuberculin skin test without active tuberculosis; R63.4 Abnormal weight loss; Z68.22 Body mass index [BMI] 22.0-22.9, adult; Z88.6 Allergy status to analgesic agent; Z91.19 Patient's noncompliance with other medical treatment and regimen
CPT/HCPCS: 36415; 80053; 81003; 86780; 86803; 87389; 87522

== ENCOUNTER 2021-02-24 20:15 | Emergency (ER) | payer OTHER ==
[2021-02-24 21:06] VITALS: TEMP 98.3; BMI 32.3
[2021-02-25] MEDS ORDERED: IBUPROFEN 600 MG TABLET (FP) PO ONE ×2 (05:03→05:10)
[2021-02-25 05:34] VITALS: BP 155/75; PULSE 84
== END 2021-02-25 10:14 | disposition home or self-care (01) ==
LOC: JER 20:15
DX: S62.92XA Unspecified fracture of left hand, initial encounter for closed fracture (principal); Y99.9 Unspecified external cause status
CPT/HCPCS: 99283-25

== ENCOUNTER 2021-06-16 14:05 | Inpatient (IN) | payer OTHER ==
[2021-06-16] MEDS ORDERED: METHOCARBAMOL 500 MG TABLET PO PRN (15:29)
[2021-06-16] MEDS ORDERED: NICOTINE 10 MG CARTRIDGE (INHALER) IH PRN (15:29)
[2021-06-16] MEDS ORDERED: chlordiazePOXIDE HCL 25 MG CAPSULE PO PRN (15:29)
[2021-06-16] MEDS ORDERED: MAG HYDROX/AL HYDROX/SIMETH 30 ML UNIT-DOSE CUP PO PRN (15:29)
[2021-06-16] MEDS ORDERED: MAGNESIUM CITRATE 300 ML BOTTLE PO PRN (15:29)
[2021-06-16] MEDS ORDERED: ACETAMINOPHEN 325 MG TABLET (FP) PO PRN (15:29)
[2021-06-16] MEDS ORDERED: ONDANSETRON *ODT* 4 MG TABLET SL PRN (15:29)
[2021-06-16] MEDS ORDERED: MAGNESIUM HYDROX 2400MG/30ML ORAL SUSPENSION 30 ML CUP PO PRN (15:29)
[2021-06-16] MEDS ORDERED: IBUPROFEN 400 MG TABLET (FP) PO PRN (15:29)
[2021-06-16] MEDS ORDERED: BISMUTH SUBSALICYLATE 524 MG/30 ML PO PRN (15:29)
[2021-06-16] MEDS ORDERED: ALBUTEROL SO4 HFA INHALER IH PRN (15:32)
[2021-06-17 01:37] VITALS: BMI 20.1
[2021-06-17] MEDS: hydrOXYzine PAMOATE 25 MG CAPSULE (FP) PO SCH ×5 (01:37→19:28)
[2021-06-17] MEDS: chlordiazePOXIDE HCL 25 MG CAPSULE PO SCH ×4 (01:37→19:27)
[2021-06-17] MEDS: THIAMINE HCL 100 MG TABLET (FP) PO SCH (01:39)
[2021-06-17] MEDS: MELATONIN 5 MG TABLETS PO SCH (01:39)
[2021-06-17] MEDS ORDERED: methaDONE HCL 40 MG DISPERSABLE TABLET PO SCH (09:30)
[2021-06-17] MEDS ORDERED: methaDONE HCL 10 MG TABLET ONE (09:44)
[2021-06-17] MEDS ORDERED: methaDONE HCL 40 MG DISPERSABLE TABLET ONE (09:45)
[2021-06-17] MEDS: SERTRALINE HCL 50 MG TABLET (FP) PO SCH (10:50)
[2021-06-17] MEDS: PRENATAL VITAMINS W/ FOLIC ACID TABLET (FP) PO SCH (10:50)
[2021-06-17 12:26] LABS: HEMOGLOBIN 13.9 GM/dL (11.7-16.9); MCHC 32.4 g/dl (32.0-35.9); MEAN CELL VOLUME 89.7 fl (80-96); MEAN PLT VOLUME 9.1 fl (7.5-11.1); PLATELET COUNT 217 10^3/uL (134-434); RDW 14.5 % (11.9-15.9)
[2021-06-17 12:28] LABS: BLOOD UREA NITROGEN 13.5 mg/dL (7-18); CALCIUM 8.5 mg/dL (8.5-10.1)
[2021-06-17 12:29] LABS: ALBUMIN 2.9 g/dl (3.4-5.0)
[2021-06-17 12:32] LABS: CREATININE 0.7 mg/dL (0.55-1.3)
[2021-06-17 12:33] LABS: BILIRUBIN,TOTAL 0.7 mg/dL (0.2-1); TOT PROT 6.4 g/dl (6.4-8.2)
[2021-06-18] MEDS: MELATONIN 5 MG TABLETS PO SCH ×2 (00:13→23:25)
[2021-06-18] MEDS: MIRTAZAPINE 15 MG TABLET (FP) PO SCH ×2 (00:13→23:24)
[2021-06-18] MEDS: chlordiazePOXIDE HCL 25 MG CAPSULE PO SCH ×5 (00:14→23:24)
[2021-06-18] MEDS: THIAMINE HCL 100 MG TABLET (FP) PO SCH ×2 (00:14→23:25)
[2021-06-18] MEDS: hydrOXYzine PAMOATE 25 MG CAPSULE (FP) PO SCH ×6 (00:14→23:25)
[2021-06-18] MEDS ORDERED: methaDONE HCL 10 MG TABLET ONE (05:16)
[2021-06-18] MEDS ORDERED: methaDONE HCL 40 MG DISPERSABLE TABLET ONE (05:17)
[2021-06-18] MEDS: ACETAMINOPHEN 325 MG TABLET (FP) PO PRN (07:11)
[2021-06-18] MEDS: MENTHOL/PHENOL 1 EACH UD MM PRN ×2 (07:28→18:44)
[2021-06-18] MEDS: PRENATAL VITAMINS W/ FOLIC ACID TABLET (FP) PO SCH (11:08)
[2021-06-18] MEDS: SERTRALINE HCL 50 MG TABLET (FP) PO SCH (11:09)
[2021-06-19] MEDS ORDERED: chlordiazePOXIDE HCL 10 MG CAPSULE PO PRN
[2021-06-19] MEDS ORDERED: methaDONE HCL 40 MG DISPERSABLE TABLET ONE (04:25)
[2021-06-19] MEDS ORDERED: methaDONE HCL 10 MG TABLET ONE (04:25)
[2021-06-19] MEDS: chlordiazePOXIDE HCL 10 MG CAPSULE PO SCH ×3 (07:00→17:54)
[2021-06-19] MEDS: hydrOXYzine PAMOATE 25 MG CAPSULE (FP) PO SCH ×4 (07:00→17:55)
[2021-06-19] MEDS: PRENATAL VITAMINS W/ FOLIC ACID TABLET (FP) PO SCH (11:04)
[2021-06-19] MEDS: SERTRALINE HCL 50 MG TABLET (FP) PO SCH (11:04)
[2021-06-20] MEDS: MIRTAZAPINE 15 MG TABLET (FP) PO SCH ×2 (00:05→23:24)
[2021-06-20] MEDS: MELATONIN 5 MG TABLETS PO SCH ×2 (00:05→23:24)
[2021-06-20] MEDS: chlordiazePOXIDE HCL 10 MG CAPSULE PO SCH ×3 (00:05→18:36)
[2021-06-20] MEDS: hydrOXYzine PAMOATE 25 MG CAPSULE (FP) PO SCH ×6 (00:06→23:24)
[2021-06-20] MEDS: THIAMINE HCL 100 MG TABLET (FP) PO SCH ×2 (00:06→23:24)
[2021-06-20] MEDS ORDERED: methaDONE HCL 10 MG TABLET ONE (04:23)
[2021-06-20] MEDS ORDERED: methaDONE HCL 40 MG DISPERSABLE TABLET ONE (04:24)
[2021-06-20] MEDS: SERTRALINE HCL 50 MG TABLET (FP) PO SCH (11:14)
[2021-06-20] MEDS: PRENATAL VITAMINS W/ FOLIC ACID TABLET (FP) PO SCH (11:14)
[2021-06-21] MEDS ORDERED: methaDONE HCL 40 MG DISPERSABLE TABLET ONE (04:17)
[2021-06-21] MEDS ORDERED: methaDONE HCL 10 MG TABLET ONE (04:17)
[2021-06-21] MEDS ORDERED: chlordiazePOXIDE HCL 10 MG CAPSULE PO ONE (05:00)
[2021-06-21] MEDS: hydrOXYzine PAMOATE 25 MG CAPSULE (FP) PO SCH ×5 (06:59→22:20)
[2021-06-21] MEDS: PRENATAL VITAMINS W/ FOLIC ACID TABLET (FP) PO SCH (13:04)
[2021-06-21] MEDS: SERTRALINE HCL 50 MG TABLET (FP) PO SCH (13:04)
[2021-06-21] MEDS: THIAMINE HCL 100 MG TABLET (FP) PO SCH (22:20)
[2021-06-21] MEDS: MIRTAZAPINE 15 MG TABLET (FP) PO SCH (22:20)
[2021-06-21] MEDS: MELATONIN 5 MG TABLETS PO SCH (22:21)
[2021-06-22] MEDS ORDERED: methaDONE HCL 10 MG TABLET ONE (04:14)
[2021-06-22] MEDS ORDERED: methaDONE HCL 40 MG DISPERSABLE TABLET ONE (04:15)
[2021-06-22] MEDS: hydrOXYzine PAMOATE 25 MG CAPSULE (FP) PO SCH ×3 (05:33→14:56)
[2021-06-22] MEDS: PRENATAL VITAMINS W/ FOLIC ACID TABLET (FP) PO SCH (10:46)
[2021-06-22] MEDS: SERTRALINE HCL 50 MG TABLET (FP) PO SCH (10:46)
[2021-06-22] MEDS: MELATONIN 5 MG TABLETS PO SCH (21:37)
[2021-06-22] MEDS: THIAMINE HCL 100 MG TABLET (FP) PO SCH (21:37)
[2021-06-22] MEDS: MIRTAZAPINE 15 MG TABLET (FP) PO SCH (21:37)
[2021-06-23] MEDS ORDERED: methaDONE HCL 10 MG TABLET ONE (04:20)
[2021-06-23] MEDS ORDERED: methaDONE HCL 40 MG DISPERSABLE TABLET ONE (04:21)
[2021-06-23] MEDS: PRENATAL VITAMINS W/ FOLIC ACID TABLET (FP) PO SCH (10:21)
[2021-06-23] MEDS: SERTRALINE HCL 50 MG TABLET (FP) PO SCH (10:21)
[2021-06-23] MEDS: MIRTAZAPINE 15 MG TABLET (FP) PO SCH (22:50)
[2021-06-23] MEDS: THIAMINE HCL 100 MG TABLET (FP) PO SCH (22:50)
[2021-06-23] MEDS: MELATONIN 5 MG TABLETS PO SCH (22:50)
[2021-06-24] MEDS ORDERED: methaDONE HCL 40 MG DISPERSABLE TABLET ONE (04:17)
[2021-06-24] MEDS ORDERED: methaDONE HCL 10 MG TABLET ONE (04:17)
[2021-06-24] MEDS: PRENATAL VITAMINS W/ FOLIC ACID TABLET (FP) PO SCH (11:19)
[2021-06-24] MEDS: SERTRALINE HCL 50 MG TABLET (FP) PO SCH (11:20)
[2021-06-24] MEDS: ACETAMINOPHEN 325 MG TABLET (FP) PO PRN (23:04)
[2021-06-24] MEDS: MIRTAZAPINE 15 MG TABLET (FP) PO SCH (23:07)
[2021-06-24] MEDS: THIAMINE HCL 100 MG TABLET (FP) PO SCH (23:07)
[2021-06-24] MEDS: MELATONIN 5 MG TABLETS PO SCH (23:08)
[2021-06-25] MEDS ORDERED: methaDONE HCL 40 MG DISPERSABLE TABLET ONE (04:27)
[2021-06-25] MEDS ORDERED: methaDONE HCL 10 MG TABLET ONE (04:27)
[2021-06-25] MEDS: SERTRALINE HCL 50 MG TABLET (FP) PO SCH (10:34)
[2021-06-25] MEDS: PRENATAL VITAMINS W/ FOLIC ACID TABLET (FP) PO SCH (10:34)
[2021-06-25] MEDS: THIAMINE HCL 100 MG TABLET (FP) PO SCH (23:08)
[2021-06-25] MEDS: MIRTAZAPINE 15 MG TABLET (FP) PO SCH (23:08)
[2021-06-25] MEDS: MELATONIN 5 MG TABLETS PO SCH (23:08)
[2021-06-26] MEDS ORDERED: methaDONE HCL 10 MG TABLET ONE (03:51)
[2021-06-26] MEDS ORDERED: methaDONE HCL 40 MG DISPERSABLE TABLET ONE (03:51)
[2021-06-26] MEDS: PRENATAL VITAMINS W/ FOLIC ACID TABLET (FP) PO SCH (10:57)
[2021-06-26] MEDS: SERTRALINE HCL 50 MG TABLET (FP) PO SCH (10:58)
[2021-06-26 13:07] VITALS: BP 132/69; PULSE 73; TEMP 97.3
== END 2021-06-26 18:19 | disposition other institution (70) | DRG 773 ==
LOC: YASAS 14:05 → Y3N 22:36
PROVIDERS: ADMIT Allergy & Immunology; ATTEND Allergy & Immunology
PROC: HZ2ZZZZ Detoxification Services for Substance Abuse Treatment (ICD-10-PCS; principal; 2021-06-16)
DX: F10.230 Alcohol dependence with withdrawal, uncomplicated (principal); F11.20 Opioid dependence, uncomplicated; F14.20 Cocaine dependence, uncomplicated; F31.9 Bipolar disorder, unspecified; F19.282 Other psychoactive substance dependence with psychoactive substance-induced sleep disorder; F19.24 Other psychoactive substance dependence with psychoactive substance-induced mood disorder; F41.9 Anxiety disorder, unspecified; U07.1 COVID-19; Z59.02 Unsheltered homelessness; Z56.0 Unemployment, unspecified
CPT/HCPCS: 36415; 80053; 85027; 86780; C9803-CS; U0003; U0005

== ENCOUNTER 2021-06-26 18:22 | Inpatient (IN) | payer OTHER ==
[2021-06-26] MEDS ORDERED: LOPERAMIDE HCL 2 MG CAPSULE PO PRN (22:25)
[2021-06-26] MEDS ORDERED: guaiFENesin 200 MG/10 ML 10 ML UNIT-DOSE CUPS PO PRN (22:25)
[2021-06-26] MEDS ORDERED: MENTHOL/PHENOL 1 EACH UD MM PRN (22:25)
[2021-06-26] MEDS ORDERED: MAGNESIUM HYDROX 2400MG/30ML ORAL SUSPENSION 30 ML CUP PO PRN (22:25)
[2021-06-26] MEDS ORDERED: MAGNESIUM CITRATE 300 ML BOTTLE PO PRN (22:25)
[2021-06-26] MEDS ORDERED: MAG HYDROX/AL HYDROX/SIMETH 30 ML UNIT-DOSE CUP PO PRN (22:25)
[2021-06-26] MEDS ORDERED: NICOTINE 10 MG CARTRIDGE (INHALER) IH PRN (22:25)
[2021-06-26] MEDS ORDERED: P-EPHED 60MG/TRIPROLIDI 2.5MG TABLET PO PRN (22:25)
[2021-06-26] MEDS ORDERED: ACETAMINOPHEN 325 MG TABLET (FP) PO PRN (22:25)
[2021-06-26] MEDS ORDERED: NICOTINE POLACRILEX 2 MG GUM BUC PRN (22:25)
[2021-06-27] MEDS ORDERED: methaDONE HCL 40 MG DISPERSABLE TABLET PO SCH (06:00)
[2021-06-27] MEDS ORDERED: methaDONE HCL 10 MG TABLET ONE (06:14)
[2021-06-27] MEDS ORDERED: methaDONE HCL 40 MG DISPERSABLE TABLET ONE (06:14)
[2021-06-27] MEDS: SERTRALINE HCL 50 MG TABLET (FP) PO SCH (09:16)
[2021-06-27] MEDS: PRENATAL VITAMINS W/ FOLIC ACID TABLET (FP) PO SCH (09:16)
[2021-06-27] MEDS: NICOTINE 7 MG/24 HOURS TOPICAL PATCH TD SCH (09:16)
[2021-06-27] MEDS: MELATONIN 5 MG TABLETS PO PRN (21:34)
[2021-06-27] MEDS: MIRTAZAPINE 15 MG TABLET (FP) PO SCH (21:34)
[2021-06-27] MEDS: THIAMINE HCL 100 MG TABLET (FP) PO SCH (21:34)
[2021-06-27] MEDS: hydrOXYzine PAMOATE 25 MG CAPSULE (FP) PO PRN (21:34)
[2021-06-28] MEDS ORDERED: methaDONE HCL 40 MG DISPERSABLE TABLET ONE (03:31)
[2021-06-28] MEDS ORDERED: methaDONE HCL 10 MG TABLET ONE (03:31)
[2021-06-28] MEDS: PRENATAL VITAMINS W/ FOLIC ACID TABLET (FP) PO SCH (10:23)
[2021-06-28] MEDS: SERTRALINE HCL 50 MG TABLET (FP) PO SCH (10:23)
[2021-06-28] MEDS: NICOTINE 7 MG/24 HOURS TOPICAL PATCH TD SCH (10:24)
[2021-06-28] MEDS: MIRTAZAPINE 15 MG TABLET (FP) PO SCH (21:45)
[2021-06-28] MEDS: MELATONIN 5 MG TABLETS PO PRN (21:45)
[2021-06-28] MEDS: THIAMINE HCL 100 MG TABLET (FP) PO SCH (21:45)
[2021-06-28] MEDS: hydrOXYzine PAMOATE 25 MG CAPSULE (FP) PO PRN (21:45)
[2021-06-29] MEDS ORDERED: methaDONE HCL 40 MG DISPERSABLE TABLET ONE (03:17)
[2021-06-29] MEDS ORDERED: methaDONE HCL 10 MG TABLET ONE (03:17)
[2021-06-29] MEDS: PRENATAL VITAMINS W/ FOLIC ACID TABLET (FP) PO SCH (10:15)
[2021-06-29] MEDS: NICOTINE 7 MG/24 HOURS TOPICAL PATCH TD SCH (10:16)
[2021-06-29] MEDS: SERTRALINE HCL 50 MG TABLET (FP) PO SCH (10:16)
[2021-06-29] MEDS: THIAMINE HCL 100 MG TABLET (FP) PO SCH (21:27)
[2021-06-29] MEDS: hydrOXYzine PAMOATE 25 MG CAPSULE (FP) PO PRN (21:28)
[2021-06-29] MEDS: MELATONIN 5 MG TABLETS PO PRN (21:28)
[2021-06-29] MEDS: MIRTAZAPINE 15 MG TABLET (FP) PO SCH (21:28)
[2021-06-30] MEDS ORDERED: methaDONE HCL 10 MG TABLET ONE (03:14)
[2021-06-30] MEDS ORDERED: methaDONE HCL 40 MG DISPERSABLE TABLET ONE (03:15)
[2021-06-30] MEDS: SERTRALINE HCL 50 MG TABLET (FP) PO SCH (09:55)
[2021-06-30] MEDS: PRENATAL VITAMINS W/ FOLIC ACID TABLET (FP) PO SCH (09:55)
[2021-06-30] MEDS: NICOTINE 7 MG/24 HOURS TOPICAL PATCH TD SCH (09:56)
[2021-06-30] MEDS: hydrOXYzine PAMOATE 25 MG CAPSULE (FP) PO PRN (21:21)
[2021-06-30] MEDS: THIAMINE HCL 100 MG TABLET (FP) PO SCH (21:21)
[2021-06-30] MEDS: MELATONIN 5 MG TABLETS PO PRN (21:21)
[2021-06-30] MEDS: MIRTAZAPINE 15 MG TABLET (FP) PO SCH (21:21)
[2021-07-01] MEDS ORDERED: methaDONE HCL 40 MG DISPERSABLE TABLET ONE (05:05)
[2021-07-01] MEDS ORDERED: methaDONE HCL 10 MG TABLET ONE (05:05)
[2021-07-01] MEDS: PRENATAL VITAMINS W/ FOLIC ACID TABLET (FP) PO SCH (10:08)
[2021-07-01] MEDS: NICOTINE 7 MG/24 HOURS TOPICAL PATCH TD SCH (10:08)
[2021-07-01] MEDS: hydrOXYzine PAMOATE 25 MG CAPSULE (FP) PO PRN (10:08)
[2021-07-01] MEDS: SERTRALINE HCL 50 MG TABLET (FP) PO SCH (10:08)
[2021-07-01] MEDS: IBUPROFEN 400 MG TABLET (FP) PO PRN (10:10)
[2021-07-01] MEDS: MIRTAZAPINE 15 MG TABLET (FP) PO SCH (21:38)
[2021-07-01] MEDS: THIAMINE HCL 100 MG TABLET (FP) PO SCH (21:38)
[2021-07-02] MEDS ORDERED: methaDONE HCL 10 MG TABLET ONE (03:17)
[2021-07-02] MEDS ORDERED: methaDONE HCL 40 MG DISPERSABLE TABLET ONE (03:18)
[2021-07-02] MEDS: hydrOXYzine PAMOATE 25 MG CAPSULE (FP) PO PRN ×2 (10:25→21:23)
[2021-07-02] MEDS: PRENATAL VITAMINS W/ FOLIC ACID TABLET (FP) PO SCH (10:25)
[2021-07-02] MEDS: SERTRALINE HCL 50 MG TABLET (FP) PO SCH (10:25)
[2021-07-02] MEDS: NICOTINE 7 MG/24 HOURS TOPICAL PATCH TD SCH (10:25)
[2021-07-02] MEDS: THIAMINE HCL 100 MG TABLET (FP) PO SCH (21:23)
[2021-07-02] MEDS: MIRTAZAPINE 15 MG TABLET (FP) PO SCH (21:23)
[2021-07-02] MEDS: MELATONIN 5 MG TABLETS PO PRN (21:23)
[2021-07-03] MEDS ORDERED: methaDONE HCL 10 MG TABLET ONE (03:12)
[2021-07-03] MEDS ORDERED: methaDONE HCL 40 MG DISPERSABLE TABLET ONE (03:12)
[2021-07-03] MEDS: NICOTINE 7 MG/24 HOURS TOPICAL PATCH TD SCH (10:37)
[2021-07-03] MEDS: SERTRALINE HCL 50 MG TABLET (FP) PO SCH (10:37)
[2021-07-03] MEDS: PRENATAL VITAMINS W/ FOLIC ACID TABLET (FP) PO SCH (10:37)
[2021-07-03] MEDS: hydrOXYzine PAMOATE 25 MG CAPSULE (FP) PO PRN ×2 (10:37→21:42)
[2021-07-03] MEDS: THIAMINE HCL 100 MG TABLET (FP) PO SCH (21:42)
[2021-07-03] MEDS: MIRTAZAPINE 15 MG TABLET (FP) PO SCH (21:42)
[2021-07-04] MEDS ORDERED: methaDONE HCL 10 MG TABLET ONE (06:07)
[2021-07-04] MEDS ORDERED: methaDONE HCL 40 MG DISPERSABLE TABLET ONE (06:07)
[2021-07-04] MEDS: SERTRALINE HCL 50 MG TABLET (FP) PO SCH (10:12)
[2021-07-04] MEDS: PRENATAL VITAMINS W/ FOLIC ACID TABLET (FP) PO SCH (10:12)
[2021-07-04] MEDS: NICOTINE 7 MG/24 HOURS TOPICAL PATCH TD SCH (10:12)
[2021-07-04] MEDS: MIRTAZAPINE 15 MG TABLET (FP) PO SCH (21:54)
[2021-07-04] MEDS: THIAMINE HCL 100 MG TABLET (FP) PO SCH (21:54)
[2021-07-04] MEDS: SUVOREXANT 10 MG TABLET PO PRN (21:54)
[2021-07-04] MEDS: hydrOXYzine PAMOATE 25 MG CAPSULE (FP) PO PRN (21:54)
[2021-07-05] MEDS ORDERED: methaDONE HCL 10 MG TABLET ONE (05:36)
[2021-07-05] MEDS ORDERED: methaDONE HCL 40 MG DISPERSABLE TABLET ONE (05:37)
[2021-07-05] MEDS: PRENATAL VITAMINS W/ FOLIC ACID TABLET (FP) PO SCH (10:16)
[2021-07-05] MEDS: NICOTINE 7 MG/24 HOURS TOPICAL PATCH TD SCH (10:16)
[2021-07-05] MEDS: SERTRALINE HCL 50 MG TABLET (FP) PO SCH (10:16)
[2021-07-05] MEDS: hydrOXYzine PAMOATE 25 MG CAPSULE (FP) PO PRN (21:39)
[2021-07-05] MEDS: THIAMINE HCL 100 MG TABLET (FP) PO SCH (21:39)
[2021-07-05] MEDS: MIRTAZAPINE 15 MG TABLET (FP) PO SCH (21:39)
[2021-07-05] MEDS: SUVOREXANT 10 MG TABLET PO PRN (21:41)
[2021-07-05] MEDS ORDERED: SUVOREXANT 10 MG TABLET PO PRN (22:00)
[2021-07-06] MEDS ORDERED: methaDONE HCL 10 MG TABLET ONE (03:43)
[2021-07-06] MEDS ORDERED: methaDONE HCL 40 MG DISPERSABLE TABLET ONE (03:43)
[2021-07-06] MEDS: SERTRALINE HCL 50 MG TABLET (FP) PO SCH (09:48)
[2021-07-06] MEDS: NICOTINE 7 MG/24 HOURS TOPICAL PATCH TD SCH (09:48)
[2021-07-06] MEDS: hydrOXYzine PAMOATE 25 MG CAPSULE (FP) PO PRN ×2 (09:48→21:32)
[2021-07-06] MEDS: PRENATAL VITAMINS W/ FOLIC ACID TABLET (FP) PO SCH (09:48)
[2021-07-06] MEDS: SUVOREXANT 10 MG TABLET PO PRN (21:31)
[2021-07-06] MEDS: MIRTAZAPINE 15 MG TABLET (FP) PO SCH (21:31)
[2021-07-06] MEDS: THIAMINE HCL 100 MG TABLET (FP) PO SCH (21:32)
[2021-07-06] MEDS ORDERED: SUVOREXANT 10 MG TABLET PO PRN (22:00)
[2021-07-07] MEDS ORDERED: methaDONE HCL 10 MG TABLET ONE (05:24)
[2021-07-07] MEDS ORDERED: methaDONE HCL 40 MG DISPERSABLE TABLET ONE (05:25)
[2021-07-07] MEDS: SERTRALINE HCL 50 MG TABLET (FP) PO SCH (10:04)
[2021-07-07] MEDS: NICOTINE 7 MG/24 HOURS TOPICAL PATCH TD SCH (10:04)
[2021-07-07] MEDS: hydrOXYzine PAMOATE 25 MG CAPSULE (FP) PO PRN ×2 (10:04→21:28)
[2021-07-07] MEDS: PRENATAL VITAMINS W/ FOLIC ACID TABLET (FP) PO SCH (10:04)
[2021-07-07] MEDS: MIRTAZAPINE 15 MG TABLET (FP) PO SCH (21:28)
[2021-07-07] MEDS: THIAMINE HCL 100 MG TABLET (FP) PO SCH (21:28)
[2021-07-07] MEDS: SUVOREXANT 10 MG TABLET PO PRN (21:29)
[2021-07-07] MEDS: ALBUTEROL SO4 HFA INHALER IH PRN (21:30)
[2021-07-08] MEDS ORDERED: methaDONE HCL 40 MG DISPERSABLE TABLET ONE (06:04)
[2021-07-08] MEDS ORDERED: methaDONE HCL 10 MG TABLET ONE (06:04)
[2021-07-08] MEDS: NICOTINE 7 MG/24 HOURS TOPICAL PATCH TD SCH (09:58)
[2021-07-08] MEDS: PRENATAL VITAMINS W/ FOLIC ACID TABLET (FP) PO SCH (09:58)
[2021-07-08] MEDS: SERTRALINE HCL 50 MG TABLET (FP) PO SCH (09:58)
[2021-07-08] MEDS: THIAMINE HCL 100 MG TABLET (FP) PO SCH (21:28)
[2021-07-08] MEDS: SUVOREXANT 10 MG TABLET PO PRN (21:29)
[2021-07-08] MEDS: MIRTAZAPINE 15 MG TABLET (FP) PO SCH (21:29)
[2021-07-08] MEDS: hydrOXYzine PAMOATE 25 MG CAPSULE (FP) PO PRN (21:29)
[2021-07-09] MEDS ORDERED: methaDONE HCL 40 MG DISPERSABLE TABLET ONE (02:57)
[2021-07-09] MEDS ORDERED: methaDONE HCL 10 MG TABLET ONE (02:57)
[2021-07-09] MEDS: hydrOXYzine PAMOATE 25 MG CAPSULE (FP) PO PRN ×2 (10:02→21:40)
[2021-07-09] MEDS: NICOTINE 7 MG/24 HOURS TOPICAL PATCH TD SCH (10:02)
[2021-07-09] MEDS: SERTRALINE HCL 50 MG TABLET (FP) PO SCH (10:02)
[2021-07-09] MEDS: PRENATAL VITAMINS W/ FOLIC ACID TABLET (FP) PO SCH (10:02)
[2021-07-09] MEDS: SUVOREXANT 10 MG TABLET PO PRN (21:40)
[2021-07-09] MEDS: MIRTAZAPINE 15 MG TABLET (FP) PO SCH (21:40)
[2021-07-09] MEDS: THIAMINE HCL 100 MG TABLET (FP) PO SCH (21:40)
[2021-07-10] MEDS ORDERED: methaDONE HCL 10 MG TABLET ONE (02:21)
[2021-07-10] MEDS ORDERED: methaDONE HCL 40 MG DISPERSABLE TABLET ONE (02:22)
[2021-07-10] MEDS: SERTRALINE HCL 50 MG TABLET (FP) PO SCH (10:43)
[2021-07-10] MEDS: hydrOXYzine PAMOATE 25 MG CAPSULE (FP) PO PRN ×2 (10:43→21:55)
[2021-07-10] MEDS: PRENATAL VITAMINS W/ FOLIC ACID TABLET (FP) PO SCH (10:43)
[2021-07-10] MEDS: NICOTINE 7 MG/24 HOURS TOPICAL PATCH TD SCH (10:44)
[2021-07-10] MEDS: THIAMINE HCL 100 MG TABLET (FP) PO SCH (21:53)
[2021-07-10] MEDS: MIRTAZAPINE 15 MG TABLET (FP) PO SCH (21:53)
[2021-07-10] MEDS: SUVOREXANT 10 MG TABLET PO PRN (21:55)
[2021-07-11] MEDS ORDERED: methaDONE HCL 10 MG TABLET ONE (04:28)
[2021-07-11] MEDS ORDERED: methaDONE HCL 40 MG DISPERSABLE TABLET ONE (04:29)
[2021-07-11] MEDS: hydrOXYzine PAMOATE 25 MG CAPSULE (FP) PO PRN ×2 (10:36→21:41)
[2021-07-11] MEDS: PRENATAL VITAMINS W/ FOLIC ACID TABLET (FP) PO SCH (10:36)
[2021-07-11] MEDS: SERTRALINE HCL 50 MG TABLET (FP) PO SCH (10:36)
[2021-07-11] MEDS: NICOTINE 7 MG/24 HOURS TOPICAL PATCH TD SCH (10:37)
[2021-07-11] MEDS: SUVOREXANT 10 MG TABLET PO PRN (21:41)
[2021-07-11] MEDS: THIAMINE HCL 100 MG TABLET (FP) PO SCH (21:41)
[2021-07-11] MEDS: MIRTAZAPINE 15 MG TABLET (FP) PO SCH (21:41)
[2021-07-12] MEDS ORDERED: methaDONE HCL 40 MG DISPERSABLE TABLET ONE (03:51)
[2021-07-12] MEDS ORDERED: methaDONE HCL 10 MG TABLET ONE (03:51)
[2021-07-12] MEDS: SERTRALINE HCL 50 MG TABLET (FP) PO SCH (10:35)
[2021-07-12] MEDS: NICOTINE 7 MG/24 HOURS TOPICAL PATCH TD SCH (10:35)
[2021-07-12] MEDS: PRENATAL VITAMINS W/ FOLIC ACID TABLET (FP) PO SCH (10:35)
[2021-07-12] MEDS: hydrOXYzine PAMOATE 25 MG CAPSULE (FP) PO PRN ×2 (10:36→21:35)
[2021-07-12] MEDS: MIRTAZAPINE 15 MG TABLET (FP) PO SCH (21:35)
[2021-07-12] MEDS: THIAMINE HCL 100 MG TABLET (FP) PO SCH (21:35)
[2021-07-12] MEDS: SUVOREXANT 10 MG TABLET PO PRN (21:37)
[2021-07-13] MEDS ORDERED: methaDONE HCL 10 MG TABLET ONE (03:45)
[2021-07-13] MEDS ORDERED: methaDONE HCL 40 MG DISPERSABLE TABLET ONE (03:45)
[2021-07-13] MEDS: SERTRALINE HCL 50 MG TABLET (FP) PO SCH (10:00)
[2021-07-13] MEDS: PRENATAL VITAMINS W/ FOLIC ACID TABLET (FP) PO SCH (10:00)
[2021-07-13] MEDS: NICOTINE 7 MG/24 HOURS TOPICAL PATCH TD SCH (10:00)
[2021-07-13] MEDS: hydrOXYzine PAMOATE 25 MG CAPSULE (FP) PO PRN ×2 (10:01→21:47)
[2021-07-13] MEDS: SUVOREXANT 10 MG TABLET PO PRN (21:46)
[2021-07-13] MEDS: THIAMINE HCL 100 MG TABLET (FP) PO SCH (21:47)
[2021-07-13] MEDS: MIRTAZAPINE 15 MG TABLET (FP) PO SCH (21:47)
[2021-07-14] MEDS ORDERED: methaDONE HCL 40 MG DISPERSABLE TABLET ONE (03:42)
[2021-07-14] MEDS ORDERED: methaDONE HCL 10 MG TABLET ONE (03:42)
[2021-07-14] MEDS: PRENATAL VITAMINS W/ FOLIC ACID TABLET (FP) PO SCH (10:17)
[2021-07-14] MEDS: NICOTINE 7 MG/24 HOURS TOPICAL PATCH TD SCH (10:18)
[2021-07-14] MEDS: SERTRALINE HCL 50 MG TABLET (FP) PO SCH (10:18)
[2021-07-14] MEDS: hydrOXYzine PAMOATE 25 MG CAPSULE (FP) PO PRN ×2 (10:19→21:37)
[2021-07-14] MEDS: IBUPROFEN 400 MG TABLET (FP) PO PRN (17:39)
[2021-07-14] MEDS: SUVOREXANT 10 MG TABLET PO PRN (21:37)
[2021-07-14] MEDS: MIRTAZAPINE 15 MG TABLET (FP) PO SCH (21:37)
[2021-07-14] MEDS: THIAMINE HCL 100 MG TABLET (FP) PO SCH (21:37)
[2021-07-15] MEDS ORDERED: methaDONE HCL 10 MG TABLET ONE (03:07)
[2021-07-15] MEDS ORDERED: methaDONE HCL 40 MG DISPERSABLE TABLET ONE (03:08)
[2021-07-15] MEDS: PRENATAL VITAMINS W/ FOLIC ACID TABLET (FP) PO SCH (10:24)
[2021-07-15] MEDS: SERTRALINE HCL 50 MG TABLET (FP) PO SCH (10:24)
[2021-07-15] MEDS: NICOTINE 7 MG/24 HOURS TOPICAL PATCH TD SCH (10:24)
[2021-07-15] MEDS: THIAMINE HCL 100 MG TABLET (FP) PO SCH (21:22)
[2021-07-15] MEDS: MIRTAZAPINE 15 MG TABLET (FP) PO SCH (21:22)
[2021-07-15] MEDS: SUVOREXANT 10 MG TABLET PO PRN (21:22)
[2021-07-15] MEDS: hydrOXYzine PAMOATE 25 MG CAPSULE (FP) PO PRN (21:22)
[2021-07-15] MEDS: IBUPROFEN 400 MG TABLET (FP) PO PRN (22:23)
[2021-07-16] MEDS ORDERED: methaDONE HCL 10 MG TABLET ONE (03:01)
[2021-07-16] MEDS ORDERED: methaDONE HCL 40 MG DISPERSABLE TABLET ONE (03:01)
[2021-07-16] MEDS: PRENATAL VITAMINS W/ FOLIC ACID TABLET (FP) PO SCH (10:13)
[2021-07-16] MEDS: SERTRALINE HCL 50 MG TABLET (FP) PO SCH (10:13)
[2021-07-16] MEDS: NICOTINE 7 MG/24 HOURS TOPICAL PATCH TD SCH (10:13)
[2021-07-16] MEDS: MIRTAZAPINE 15 MG TABLET (FP) PO SCH (21:36)
[2021-07-16] MEDS: hydrOXYzine PAMOATE 25 MG CAPSULE (FP) PO PRN (21:36)
[2021-07-16] MEDS: THIAMINE HCL 100 MG TABLET (FP) PO SCH (21:36)
[2021-07-16] MEDS: SUVOREXANT 10 MG TABLET PO PRN (21:38)
[2021-07-16] MEDS: IBUPROFEN 400 MG TABLET (FP) PO PRN (21:39)
[2021-07-17] MEDS ORDERED: methaDONE HCL 40 MG DISPERSABLE TABLET ONE (03:19)
[2021-07-17] MEDS ORDERED: methaDONE HCL 10 MG TABLET ONE (03:19)
[2021-07-17] MEDS: SERTRALINE HCL 50 MG TABLET (FP) PO SCH (10:27)
[2021-07-17] MEDS: PRENATAL VITAMINS W/ FOLIC ACID TABLET (FP) PO SCH (10:27)
[2021-07-17] MEDS: NICOTINE 7 MG/24 HOURS TOPICAL PATCH TD SCH (10:27)
[2021-07-17] MEDS: THIAMINE HCL 100 MG TABLET (FP) PO SCH (21:41)
[2021-07-17] MEDS: SUVOREXANT 10 MG TABLET PO PRN (21:43)
[2021-07-17] MEDS: MIRTAZAPINE 15 MG TABLET (FP) PO SCH (21:43)
[2021-07-18] MEDS ORDERED: methaDONE HCL 10 MG TABLET ONE (03:52)
[2021-07-18] MEDS ORDERED: methaDONE HCL 40 MG DISPERSABLE TABLET ONE (03:52)
[2021-07-18] MEDS: NICOTINE 7 MG/24 HOURS TOPICAL PATCH TD SCH (10:28)
[2021-07-18] MEDS: PRENATAL VITAMINS W/ FOLIC ACID TABLET (FP) PO SCH (10:28)
[2021-07-18] MEDS: SERTRALINE HCL 50 MG TABLET (FP) PO SCH (10:29)
[2021-07-18] MEDS: IBUPROFEN 400 MG TABLET (FP) PO PRN (19:04)
[2021-07-18] MEDS: THIAMINE HCL 100 MG TABLET (FP) PO SCH (21:40)
[2021-07-18] MEDS: MIRTAZAPINE 15 MG TABLET (FP) PO SCH (21:40)
[2021-07-18] MEDS: SUVOREXANT 10 MG TABLET PO PRN (21:42)
[2021-07-19] MEDS ORDERED: methaDONE HCL 40 MG DISPERSABLE TABLET ONE (03:11)
[2021-07-19] MEDS ORDERED: methaDONE HCL 10 MG TABLET ONE (03:11)
[2021-07-19] MEDS: SERTRALINE HCL 50 MG TABLET (FP) PO SCH (10:13)
[2021-07-19] MEDS: NICOTINE 7 MG/24 HOURS TOPICAL PATCH TD SCH (10:13)
[2021-07-19] MEDS: PRENATAL VITAMINS W/ FOLIC ACID TABLET (FP) PO SCH (10:13)
[2021-07-19] MEDS: SUVOREXANT 10 MG TABLET PO PRN (21:29)
[2021-07-19] MEDS: THIAMINE HCL 100 MG TABLET (FP) PO SCH (21:29)
[2021-07-19] MEDS: MIRTAZAPINE 15 MG TABLET (FP) PO SCH (21:29)
[2021-07-19] MEDS: hydrOXYzine PAMOATE 25 MG CAPSULE (FP) PO PRN (21:29)
[2021-07-20] MEDS ORDERED: methaDONE HCL 40 MG DISPERSABLE TABLET ONE (05:45)
[2021-07-20] MEDS ORDERED: methaDONE HCL 10 MG TABLET ONE (05:45)
[2021-07-20] MEDS: PRENATAL VITAMINS W/ FOLIC ACID TABLET (FP) PO SCH (10:01)
[2021-07-20] MEDS: SERTRALINE HCL 50 MG TABLET (FP) PO SCH (10:01)
[2021-07-20] MEDS: NICOTINE 7 MG/24 HOURS TOPICAL PATCH TD SCH (10:01)
[2021-07-20] MEDS: hydrOXYzine PAMOATE 25 MG CAPSULE (FP) PO PRN (10:02)
[2021-07-20] MEDS: IBUPROFEN 400 MG TABLET (FP) PO PRN (12:20)
[2021-07-20] MEDS: MIRTAZAPINE 15 MG TABLET (FP) PO SCH (21:22)
[2021-07-20] MEDS: THIAMINE HCL 100 MG TABLET (FP) PO SCH (21:22)
[2021-07-21] MEDS ORDERED: methaDONE HCL 10 MG TABLET ONE (05:15)
[2021-07-21] MEDS ORDERED: methaDONE HCL 40 MG DISPERSABLE TABLET ONE (05:16)
[2021-07-21] MEDS: SERTRALINE HCL 50 MG TABLET (FP) PO SCH (11:08)
[2021-07-21] MEDS: PRENATAL VITAMINS W/ FOLIC ACID TABLET (FP) PO SCH (11:08)
[2021-07-21] MEDS: NICOTINE 7 MG/24 HOURS TOPICAL PATCH TD SCH (11:09)
[2021-07-21] MEDS: THIAMINE HCL 100 MG TABLET (FP) PO SCH (21:48)
[2021-07-21] MEDS: MIRTAZAPINE 15 MG TABLET (FP) PO SCH (21:48)
[2021-07-22] MEDS ORDERED: methaDONE HCL 10 MG TABLET ONE (05:18)
[2021-07-22] MEDS ORDERED: methaDONE HCL 40 MG DISPERSABLE TABLET ONE (05:19)
[2021-07-22] MEDS: NICOTINE 7 MG/24 HOURS TOPICAL PATCH TD SCH (10:24)
[2021-07-22] MEDS: SERTRALINE HCL 50 MG TABLET (FP) PO SCH (10:24)
[2021-07-22] MEDS: PRENATAL VITAMINS W/ FOLIC ACID TABLET (FP) PO SCH (10:24)
[2021-07-22] MEDS: MIRTAZAPINE 15 MG TABLET (FP) PO SCH (21:26)
[2021-07-22] MEDS: THIAMINE HCL 100 MG TABLET (FP) PO SCH (21:26)
[2021-07-23] MEDS ORDERED: methaDONE HCL 10 MG TABLET ONE (03:08)
[2021-07-23] MEDS ORDERED: methaDONE HCL 40 MG DISPERSABLE TABLET ONE (03:09)
[2021-07-23] MEDS: SERTRALINE HCL 50 MG TABLET (FP) PO SCH (10:30)
[2021-07-23] MEDS: PRENATAL VITAMINS W/ FOLIC ACID TABLET (FP) PO SCH (10:30)
[2021-07-23] MEDS: NICOTINE 7 MG/24 HOURS TOPICAL PATCH TD SCH (10:31)
[2021-07-23] MEDS: MIRTAZAPINE 15 MG TABLET (FP) PO SCH (21:19)
[2021-07-23] MEDS: THIAMINE HCL 100 MG TABLET (FP) PO SCH (21:20)
[2021-07-24] MEDS ORDERED: methaDONE HCL 40 MG DISPERSABLE TABLET ONE (06:10)
[2021-07-24] MEDS ORDERED: methaDONE HCL 10 MG TABLET ONE (06:10)
[2021-07-24 07:14] VITALS: BP 113/74; PULSE 80; TEMP 97.9
[2021-07-24] MEDS: ALBUTEROL SO4 HFA INHALER IH PRN (08:51)
== END 2021-07-24 09:15 | disposition other institution (70) | DRG 772 ==
LOC: YASAS 18:22 → Y3W 18:24 → Y5N 06-27 13:51 → Y3W 07-20 01:16
PROVIDERS: ADMIT Allergy & Immunology; ATTEND Allergy & Immunology
PROC: HZ42ZZZ Group Counseling for Substance Abuse Treatment, Cognitive-Behavioral (ICD-10-PCS; principal; 2021-06-26)
DX: F11.20 Opioid dependence, uncomplicated (principal); F14.20 Cocaine dependence, uncomplicated; F10.20 Alcohol dependence, uncomplicated; F17.210 Nicotine dependence, cigarettes, uncomplicated; F31.9 Bipolar disorder, unspecified; F41.8 Other specified anxiety disorders; F19.282 Other psychoactive substance dependence with psychoactive substance-induced sleep disorder; F19.24 Other psychoactive substance dependence with psychoactive substance-induced mood disorder; J45.909 Unspecified asthma, uncomplicated; Z20.822 Contact with and (suspected) exposure to COVID-19; Z86.16 Personal history of COVID-19; Z59.00 Homelessness unspecified; Z56.0 Unemployment, unspecified; Z88.6 Allergy status to analgesic agent
CPT/HCPCS: C9803; U0003; U0005

== ENCOUNTER 2021-09-12 12:43 | Inpatient (IN) | payer OTHER ==
[2021-09-12] MEDS ORDERED: chlordiazePOXIDE HCL 25 MG CAPSULE PO PRN (13:30)
[2021-09-12] MEDS ORDERED: ONDANSETRON *ODT* 4 MG TABLET SL PRN (13:30)
[2021-09-12] MEDS ORDERED: NICOTINE 10 MG CARTRIDGE (INHALER) IH PRN (13:30)
[2021-09-12] MEDS ORDERED: BISMUTH SUBSALICYLATE 524 MG/30 ML PO PRN (13:30)
[2021-09-12] MEDS ORDERED: MAGNESIUM HYDROX 2400MG/30ML ORAL SUSPENSION 30 ML CUP PO PRN (13:30)
[2021-09-12] MEDS ORDERED: ACETAMINOPHEN 325 MG TABLET (FP) PO PRN ×2 (13:30)
[2021-09-12] MEDS ORDERED: LOPERAMIDE HCL 2 MG CAPSULE PO PRN (13:30)
[2021-09-12] MEDS ORDERED: DICYCLOMINE HCL 10 MG CAPSULE PO PRN (13:30)
[2021-09-12] MEDS ORDERED: MENTHOL/PHENOL 1 EACH UD MM PRN (13:30)
[2021-09-12] MEDS ORDERED: MAGNESIUM CITRATE 300 ML BOTTLE PO PRN (13:30)
[2021-09-12] MEDS ORDERED: METHOCARBAMOL 500 MG TABLET PO PRN (13:30)
[2021-09-12] MEDS ORDERED: MAG HYDROX/AL HYDROX/SIMETH 30 ML UNIT-DOSE CUP PO PRN (13:30)
[2021-09-12 14:28] VITALS: BMI 24.2
[2021-09-12] MEDS: hydrOXYzine PAMOATE 25 MG CAPSULE (FP) PO SCH ×3 (15:26→22:16)
[2021-09-12] MEDS: PRENATAL VITAMINS W/ FOLIC ACID TABLET (FP) PO SCH (15:26)
[2021-09-12] MEDS: NICOTINE 14 MG/24 HOURS TOPICAL PATCH TD SCH (15:27)
[2021-09-12] MEDS: chlordiazePOXIDE HCL 25 MG CAPSULE PO SCH ×2 (17:53→22:16)
[2021-09-12] MEDS: THIAMINE HCL 100 MG TABLET (FP) PO SCH (22:16)
[2021-09-12] MEDS: MELATONIN 5 MG TABLETS PO SCH (22:16)
[2021-09-13] MEDS: chlordiazePOXIDE HCL 25 MG CAPSULE PO SCH ×4 (05:25→22:08)
[2021-09-13] MEDS: hydrOXYzine PAMOATE 25 MG CAPSULE (FP) PO SCH ×6 (05:25→22:08)
[2021-09-13] MEDS ORDERED: methaDONE HCL 40 MG DISPERSABLE TABLET PO SCH (10:30)
[2021-09-13] MEDS ORDERED: methaDONE HCL 10 MG TABLET ONE (10:58)
[2021-09-13] MEDS ORDERED: methaDONE HCL 40 MG DISPERSABLE TABLET ONE (10:58)
[2021-09-13] MEDS: PRENATAL VITAMINS W/ FOLIC ACID TABLET (FP) PO SCH (11:07)
[2021-09-13] MEDS: NICOTINE 14 MG/24 HOURS TOPICAL PATCH TD SCH (11:11)
[2021-09-13 11:57] LABS: HEMATOCRIT 42.3 % (35.4-49); HEMOGLOBIN 13.9 GM/dL (11.7-16.9); MCH 30.2 pg (25.7-33.7); MCHC 32.9 g/dl (32.0-35.9); MEAN CELL VOLUME 91.9 fl (80-96); MEAN PLT VOLUME 9.4 fl (7.5-11.1); PLATELET COUNT 215 10^3/uL (134-434); RBC 4.61 M/mm3 (4.00-5.60); RDW 18.4 % (11.9-15.9); WHITE BLOOD COUNT 5.8 K/mm3 (4.0-10.0)
[2021-09-13 12:23] LABS: ALBUMIN 2.8 g/dl (3.4-5.0); BLOOD UREA NITROGEN 15.4 mg/dL (7-18); CALCIUM 8.6 mg/dL (8.5-10.1)
[2021-09-13 12:26] LABS: CREATININE 0.7 mg/dL (0.55-1.3)
[2021-09-13 12:28] LABS: BILIRUBIN,TOTAL 0.3 mg/dL (0.2-1); TOT PROT 6.1 g/dl (6.4-8.2)
[2021-09-13] MEDS: IBUPROFEN 400 MG TABLET (FP) PO PRN (15:02)
[2021-09-13] MEDS: MELATONIN 5 MG TABLETS PO SCH (22:08)
[2021-09-13] MEDS: THIAMINE HCL 100 MG TABLET (FP) PO SCH (22:08)
[2021-09-13] MEDS: MIRTAZAPINE 15 MG TABLET (FP) PO SCH (22:08)
[2021-09-14] MEDS ORDERED: methaDONE HCL 10 MG TABLET ONE (05:04)
[2021-09-14] MEDS ORDERED: methaDONE HCL 40 MG DISPERSABLE TABLET ONE (05:04)
[2021-09-14] MEDS: chlordiazePOXIDE HCL 25 MG CAPSULE PO SCH ×4 (05:44→22:06)
[2021-09-14] MEDS: hydrOXYzine PAMOATE 25 MG CAPSULE (FP) PO SCH ×6 (05:53→22:50)
[2021-09-14] MEDS ORDERED: SERTRALINE HCL 50 MG TABLET (FP) PO SCH (10:00)
[2021-09-14] MEDS: PRENATAL VITAMINS W/ FOLIC ACID TABLET (FP) PO SCH (10:23)
[2021-09-14] MEDS: NICOTINE 14 MG/24 HOURS TOPICAL PATCH TD SCH (10:24)
[2021-09-14] MEDS: MIRTAZAPINE 15 MG TABLET (FP) PO SCH (22:06)
[2021-09-14] MEDS: MELATONIN 5 MG TABLETS PO SCH (22:06)
[2021-09-14] MEDS: THIAMINE HCL 100 MG TABLET (FP) PO SCH (22:07)
[2021-09-15] MEDS ORDERED: chlordiazePOXIDE HCL 10 MG CAPSULE PO PRN
[2021-09-15 00:06] LABS: SARS-CoV-2 NAA Not Detected (Not Detected)
[2021-09-15] MEDS: hydrOXYzine PAMOATE 25 MG CAPSULE (FP) PO SCH ×5 (05:18→22:12)
[2021-09-15] MEDS: chlordiazePOXIDE HCL 10 MG CAPSULE PO SCH ×4 (05:18→22:10)
[2021-09-15] MEDS ORDERED: methaDONE HCL 10 MG TABLET ONE (05:24)
[2021-09-15] MEDS ORDERED: methaDONE HCL 40 MG DISPERSABLE TABLET ONE (05:25)
[2021-09-15] MEDS: PRENATAL VITAMINS W/ FOLIC ACID TABLET (FP) PO SCH (10:16)
[2021-09-15] MEDS: NICOTINE 14 MG/24 HOURS TOPICAL PATCH TD SCH (10:17)
[2021-09-15] MEDS: IBUPROFEN 400 MG TABLET (FP) PO PRN (17:24)
[2021-09-15] MEDS: MELATONIN 5 MG TABLETS PO SCH (22:10)
[2021-09-15] MEDS: THIAMINE HCL 100 MG TABLET (FP) PO SCH (22:10)
[2021-09-15] MEDS: MIRTAZAPINE 15 MG TABLET (FP) PO SCH (22:10)
[2021-09-16] MEDS ORDERED: methaDONE HCL 10 MG TABLET ONE (04:51)
[2021-09-16] MEDS ORDERED: methaDONE HCL 40 MG DISPERSABLE TABLET ONE (04:52)
[2021-09-16] MEDS: chlordiazePOXIDE HCL 10 MG CAPSULE PO SCH ×2 (05:30→17:35)
[2021-09-16] MEDS: hydrOXYzine PAMOATE 25 MG CAPSULE (FP) PO SCH ×5 (05:46→22:18)
[2021-09-16] MEDS: NICOTINE 14 MG/24 HOURS TOPICAL PATCH TD SCH (10:07)
[2021-09-16] MEDS: PRENATAL VITAMINS W/ FOLIC ACID TABLET (FP) PO SCH (10:07)
[2021-09-16] MEDS: MELATONIN 5 MG TABLETS PO SCH (22:17)
[2021-09-16] MEDS: MIRTAZAPINE 15 MG TABLET (FP) PO SCH (22:18)
[2021-09-16] MEDS: THIAMINE HCL 100 MG TABLET (FP) PO SCH (22:18)
[2021-09-17] MEDS ORDERED: methaDONE HCL 10 MG TABLET ONE ×2 (04:45→05:21)
[2021-09-17] MEDS ORDERED: chlordiazePOXIDE HCL 10 MG CAPSULE PO ONE (05:00)
[2021-09-17] MEDS ORDERED: methaDONE HCL 40 MG DISPERSABLE TABLET ONE (05:22)
[2021-09-17] MEDS: hydrOXYzine PAMOATE 25 MG CAPSULE (FP) PO SCH ×2 (05:28→10:24)
[2021-09-17 09:15] VITALS: BP 106/67; PULSE 101; TEMP 97.9
[2021-09-17] MEDS: NICOTINE 14 MG/24 HOURS TOPICAL PATCH TD SCH (10:24)
[2021-09-17] MEDS: PRENATAL VITAMINS W/ FOLIC ACID TABLET (FP) PO SCH (10:24)
== END 2021-09-17 10:30 | disposition home or self-care (01) | DRG 773 ==
LOC: YASAS 12:43 → Y3N 14:42
PROVIDERS: ADMIT Allergy & Immunology; ATTEND Allergy & Immunology
PROC: HZ2ZZZZ Detoxification Services for Substance Abuse Treatment (ICD-10-PCS; principal; 2021-09-12)
DX: F10.230 Alcohol dependence with withdrawal, uncomplicated (principal); F11.20 Opioid dependence, uncomplicated; F14.20 Cocaine dependence, uncomplicated; F17.210 Nicotine dependence, cigarettes, uncomplicated; F19.24 Other psychoactive substance dependence with psychoactive substance-induced mood disorder; F19.282 Other psychoactive substance dependence with psychoactive substance-induced sleep disorder; J45.20 Mild intermittent asthma, uncomplicated; G47.00 Insomnia, unspecified; H54.62 Unqualified visual loss, left eye, normal vision right eye; Z88.6 Allergy status to analgesic agent; Z91.19 Patient's noncompliance with other medical treatment and regimen; Z86.19 Personal history of other infectious and parasitic diseases; Z86.11 Personal history of tuberculosis; Z56.0 Unemployment, unspecified; Z59.00 Homelessness unspecified
CPT/HCPCS: 36415; 80053; 85027; 86780; C9803-CS; U0003; U0005